=== PATIENT | female | born 1995 | race Caucasian/White ===

== ENCOUNTER 2020-03-14 07:19 | Emergency (ER) | payer OTHER, SELFPAY ==
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
--- NOTE | 2020-03-14 07:35 | XR_ITS ---
EXAMINATION: XR CHEST CLINICAL INFORMATION: Cough. COMPARISON: Report from prior chest radiograph done on 08/03/2006. TECHNIQUE: Frontal upright portable view of the chest was obtained. FINDINGS: No significant abnormality is noted involving the heart, lungs, mediastinum, bony thorax or soft tissues. XR/XR chest 1V IMPRESSION: Unremarkable examination. Specifically, no radiographic evidence of pneumonia.
--- NOTE | 2020-03-14 07:35 | ECG_ITS ---
Test Reason : SOB Blood Pressure : / mmHG Vent. Rate : 092 BPM Atrial Rate : 092 BPM P-R Int : 160 ms QRS Dur : 086 ms QT Int : 382 ms P-R-T Axes : 051 050 027 degrees QTc Int : 472 ms Normal sinus rhythm Normal ECG When compared with ECG of 03-DEC-2015 00:22, No significant change was found Heart rate has decreased Referred By: Diamond Zamarripa Electronically Signed By:BELLE BLACKWOOD MD
[2020-03-14 07:45] VITALS: PULSE 89; RESP 18; TEMP 36.7; O2SAT 100; BMI 31.1
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
--- NOTE | 2020-03-14 08:50 | PC.NURSE ---
PT REFUSED THE MEDICATION AT THIS TIME, STATES SHE IS NOT HAVING ANY PAIN/BURNING FEELING AT THIS TIME
[2020-03-14 08:59] LABS: Glucose Urine UA NEG (NEG); Leukocyte Esterase Urine NEG (NEG); Nitrite Urine NEG (NEG); PH 6.5 (5.0-8.0); Urine Blood 1+ (NEG); Urine Ketones NEG (NEG); Urine Protein NEG (NEG-TRACE)
[2020-03-14 09:09] LABS: Appearance Urine HAZY; Color Urine YELLOW
[2020-03-14 09:15] LABS: Bacteria Urine 1+ /LPF; Mucus Urine 1+ /LPF; Squamous Epithelial Cell Urine 2+ /LPF
[2020-03-14 09:31] LABS: Amphetamine Screen Urine Not Detected (Not Detect); Barbiturates, Urine Not Detected (Not Detect); Benzodiazepines Screen Urine Not Detected (Not Detect); Cannabinoid Screen Urine Not Detected (Not Detect); Cocaine Screen Urine POSITIVE (Not Detect); Opiate Screen Urine Not Detected (Not Detect); Phencyclidine Screen Urine Not Detected (Not Detect)
[2020-03-14 09:41] LABS: UPreg QC Valid YES; Urine Pregnancy NEGATIVE (NEGATIVE)
[2020-03-14 09:43] LABS: MANUAL DIFF FLAG NO
[2020-03-14 09:46] LABS: Basophils Absolute Auto 0.1 X10*3/uL (0.0-0.2); Basophils Percent Auto 0.8 % (0-2); Eosinophils Absolute Auto 0.1 X10*3/uL (0.0-0.4); Eosinophils Percent Auto 1.2 % (0-4); Hematocrit 38.1 % (37-47); Imm Gran Abs Auto 0.02 X10*3/uL (0.00-0.03); Imm Gran Pct Auto 0.2 % (0.0-0.4); Lymphocytes Absolute Auto 2.5 X10*3/uL (1.2-4.9); Mean Corpuscular HGB Conc 34.1 g/dl (31.0-35.0); Mean Corpuscular Volume 87.8 fL (80-98); Mean Platelet Volume 10.1 fL (9.4-12.3); Monocytes Absolute Auto 0.7 X10*3/uL (0.1-1.2); Monocytes Percent Auto 6.9 % (2-11); Neutrophils Absolute Auto 7.3 X10*3/uL (2.0-8.3); Neutrophils Percent Auto 67.9 % (45-73); Platelet Count 276 X10*3/uL (160-400); Red Blood Count 4.34 X10*6/uL (4.20-5.50); Red Cell Distribution Width 14.2 % (11.0-16.0); White Blood Count 10.8 X10*3/uL (4.8-10.8)
[2020-03-14 09:47] VITALS: BP 131/82; PULSE 89; RESP 20; O2SAT 100
--- NOTE | 2020-03-14 09:49 | PC.NURSE ---
PT IS CURRENTLY REFUSING TO ANSWER QUESTIONS ON THE [place] SCALE, STATES I FEEL BETTER NOW I DON'T THINK I NEED TO TALK TO CRISIS AT THIS TIME
--- NOTE | 2020-03-14 10:01 | PC.NURSE ---
FAXED OVER TO N
[2020-03-14 10:12] LABS: Ethanol 99 mg/dL
[2020-03-14 10:15] LABS: Alanine Aminotransferase 23 U/L (0-31); Albumin Level 4.5 g/dL (3.5-5.0); Alkaline Phosphatase 84 U/L (39-117); Anion Gap 12 (12-20); Aspartate Amino Transferase 32 U/L (5-31); Bilirubin Direct 0.2 mg/dL (0.0-0.5); Bilirubin Total 0.3 mg/dL (0.0-1.0); Blood Urea Nitrogen 9 mg/dL (9-16); Calcium 8.7 mg/dL (8.4-10.2); Carbon Dioxide 27 mmol/L (22-29); Chloride 103 mmol/L (96-108); Creatinine Clr Calc Pharmacy 87.3; Estimated Glomerular Filt Rate > 60; Glucose Random 106 mg/dL (60-115); Lipase 12 U/L (8-78); Magnesium 2.3 mg/dL (1.6-2.6); Potassium 3.9 mmol/l (3.3-5.1); Sodium 138 mmol/L (135-145); Total Protein 7.6 g/dL (6.5-8.0)
[2020-03-14 11:38] VITALS: BP 126/81; PULSE 97; RESP 16; O2SAT 100
--- NOTE | 2020-03-14 11:39 | PC.NURSE ---
pt resting in the stretcher awaiting bhn evaluation, pt is calm and cooperative. lunch elaine ordered
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
--- NOTE | 2020-03-14 14:44 | PC.NURSE ---
this rn just got off the phone with bhn, at this time bhn unable to provided that they will be arriving to see the pt pt denies si/hi, she would like to go home, md aware. awaiting d/c paperwork
[2020-03-14 14:49] VITALS: BP 125/85; PULSE 79; RESP 16; TEMP 36.8; O2SAT 98
== END 2020-03-14 14:56 | disposition home or self-care (01) ==
PROVIDERS: Emergency Provider Emergency Medicine
DX: F10.129 Alcohol abuse with intoxication, unspecified (principal); F32.9 Major depressive disorder, single episode, unspecified; R11.2 Nausea with vomiting, unspecified; Y90.4 Blood alcohol level of 80-99 mg/100 ml; F14.10 Cocaine abuse, uncomplicated; F17.200 Nicotine dependence, unspecified, uncomplicated; Z71.6 Tobacco abuse counseling
CPT/HCPCS: 36415; 71045; 80048; 80076; 80307; 80320; 81001; 81003; 81025; 83690; 83735; 85025; 93005; 99284

== ENCOUNTER 2020-08-10 22:09 | Emergency (ER) | payer OTHER, SELFPAY ==
[2020-08-10 22:12] VITALS: PULSE 104; O2SAT 100
[2020-08-10 22:22] VITALS: BP 153/77; PULSE 118; PULSE 122; RESP 18; TEMP 36.7; O2SAT 98; BMI 30.5
--- NOTE | 2020-08-10 23:03 | ED.ALCOHOL ---
HPI - Alcohol General Chief Complaint: ETOH/Substance Use Stated Complaint: ETOH AND LAC Time Seen by Provider: 08/10/20 23:03 History of Present Illness HPI narrative: Patient is a 25-year-old female sent in for evaluation because of possible alcohol ingestion and also a laceration to her right long finger. Patient denies any systemic complaints. Denies any suicidal homicidal ideation. Walking pacing around in the emergency department without any difficulties. Patient does not want stay. Related Data Allergies Allergy/AdvReac Type Severity Reaction Status Date / Time bee pollen [BEE STINGS] Allergy Unknown swelling Verified 08/10/20 22:22 egg [EGG] Allergy Unknown NAUSEA & Verified 08/10/20 22:22 VOMITING ibuprofen [From MOTRIN] Allergy Unknown FACIAL Verified 08/10/20 22:22 SWELLING Review of Systems Review of Systems: Constitutional: No Weight loss, No Fever, No Chills, No Night Sweats, No Fatigue, No Malaise ENT/Mouth: No Hearing loss, No Ear Pain, No Nasal Congestion, No Sinus Pain, No Hoarseness, No sore throat, No Rhinorrhea, No Swallowing Difficulty Eyes: No Eye Pain, No Swelling, No Redness, No Foreign Body, No Discharge, No Vision Changes Cardiovascular: No Chest Pain, No SOB, No Dyspnea on Exertion, No Orthopnea, No Edema, No Palpitations Respiratory: No Cough, No Sputum, No Wheezing, No Smoke Exposure, No Dyspnea Gastrointestinal: No Nausea, No Vomiting, No Diarrhea, No Constipation, No abdominal Pain, No Hematochezia, No Melena Genitourinary: no irregular bleeding, No Dysuria, No Urinary Frequency, No Hematuria, No Urinary Incontinence, No Urgency, No Flank Pain, No Urinary Flow Changes, No Hesitancy Musculoskeletal: No joint pain, No Myalgias, No Joint Swelling Skin: No Skin Lesions, No rash Neuro: No Weakness, No Numbness, No Paresthesias, No Loss of Consciousness, No Dizziness, No Headache Psych: No Anxiety/Panic, No Depression, No SI/HI/AH/VH, No Social Issues, Heme/Lymph: No Bruising, No Bleeding,No Lymphadenopathy Endocrine: No Polyuria, No Polydipsia, No Temperature Intolerance Yes all other systems are reviewed and are negative [facility] Past Medical History Attestation statement: The following information was validated with the patient. Medical History Asthma Depression Substance abuse Social History Social History Alcohol intake: current Alcohol intake frequency: 0-2 drinks per day Alcohol type: hard liquor Smoking Status: Current every day smoker Substance Use Type: Crack/Cocaine Advance Directives: No Advance Directives Information Provided: No Physical Exam Vital Signs: Vital Signs: Last Vital Signs Temp 98.0 F 08/10/20 22:22 Pulse 118 H 08/10/20 22:22 Resp 18 08/10/20 22:22 BP 153/77 H 08/10/20 22:22 Pulse Ox 98 08/10/20 22:22 Body Mass Index 30.5 Appearance: Alert. Oriented X3. No acute distress. Eyes: Pupils equal, round and reactive to light. ENT: Pharynx normal. Neck: Normal inspection. Neck supple. No lymph nodes noted. No crepitus CVS: Normal heart rate and rhythm. Pulses normal. Normal S1 and S2 Respiratory: No respiratory distress. Breath sounds normal. No Wheezing. No rales Abdomen: Soft and nontender. No rigidity. No distention. good BS x4 Skin: Skin warm and dry. Normal skin color. Normal skin turgor. Extremities: No lower extremity edema. Neurovascular intact to all extremities. No Lacerations. No Rash Neuro: Oriented X 3. No motor deficit. No sensory deficit. Moving all extermities. No slurred speech MDM - Alcohol MDM Narrative Medical decision making narrative: Patient refused further care. She is awake alert ambulatory clinically sober. Understood the risk of infection. Patient did not want to stay. She denies any suicidal homicidal ideations. She is walking with normal gait. Patient has left against medical advice. Medical Records Attestation: I reviewed the patient's medical records. Discharge Plan Discharge Clinical Impression: Alcoholic intoxication, Laceration Patient Disposition: Left Against Medical Advice
== END 2020-08-11 00:06 | disposition left against medical advice (07) ==
PROVIDERS: Emergency Provider Emergency Medicine Emergency Medical Services
DX: S61.212A Laceration without foreign body of right middle finger without damage to nail, initial encounter (principal); F10.129 Alcohol abuse with intoxication, unspecified; F33.1 Major depressive disorder, recurrent, moderate; F14.90 Cocaine use, unspecified, uncomplicated; Y90.9 Presence of alcohol in blood, level not specified; X58.XXXA Exposure to other specified factors, initial encounter; Y93.9 Activity, unspecified; Y92.9 Unspecified place or not applicable; Y99.9 Unspecified external cause status; Z79.899 Other long term (current) drug therapy
CPT/HCPCS: 99283

== ENCOUNTER 2020-08-11 11:42 | Emergency (ER) | payer OTHER, SELFPAY ==
--- NOTE | 2020-08-11 12:06 | ED.ALCOHOL ---
HPI - Alcohol General Chief Complaint: ETOH/Substance Use Stated Complaint: etoh Time Seen by Provider: 08/11/20 12:05 Source: patient Mode of arrival: ambulatory Limitations: other (ETOH intoxicated, agitated) History of Present Illness HPI narrative: 25 yo female reports ETOH abuse sent by PD after trying to get into program, wants detox reports she scraped her L ring finger as well unsure tetanus status MD complaint: alcohol intoxication Last drink: Just prior to admission Chronic alcohol use: Yes Previous visits for alcohol intoxication: Yes Recent trauma: Yes Associated symptoms: denies other symptoms Treatments prior to arrival: none Related Data Allergies Allergy/AdvReac Type Severity Reaction Status Date / Time bee pollen [BEE STINGS] Allergy Unknown swelling Verified 08/10/20 22:22 egg [EGG] Allergy Unknown NAUSEA & Verified 08/10/20 22:22 VOMITING ibuprofen [From MOTRIN] Allergy Unknown FACIAL Verified 08/10/20 22:22 SWELLING Review of Systems Review of Systems: Constitutional : No Fever, No Chills ENT/Mouth : No Ear Pain, No Nasal Congestion, No sore throat Eyes: No Eye Pain, No Swelling, No Redness Cardiovascular : No Chest Pain, No SOB Respiratory : No Cough, No Sputum, No Dyspnea Gastrointestinal : No Nausea, No Vomiting, No Diarrhea, No Hematochezia, No Melena Genitourinary : No Dysuria, No Urinary Frequency, No Hematuria Musculoskeletal : No Myalgias Skin : No Skin Lesions, No rash Neuro : No Weakness, No Numbness, No Paresthesias, No Dizziness, No Headache Psych : positive Anxiety, no Depression, no SI/HI Heme/Lymph: No Lymphadenopathy Endocrine : No Polyuria, No Polydipsia All other systems reviewed and are negative [facility] Past Medical History Attestation statement: The following information was validated with the patient. Medical History Asthma Depression Substance abuse Social History Social History Alcohol intake: current Alcohol intake frequency: 0-2 drinks per day Alcohol type: hard liquor Smoking Status: Current every day smoker Substance Use Type: Crack/Cocaine Advance Directives: No Advance Directives Information Provided: No Physical Exam Vital Signs: Vital Signs: Last Vital Signs Temp 98 F 08/11/20 12:10 Pulse 108 H 08/11/20 12:10 Resp 20 08/11/20 12:10 BP 128/68 08/11/20 12:10 Pulse Ox 94 08/11/20 12:10 Body Mass Index 31.8 Appearance: Alert. Oriented X3. No acute distress. slightly agitated + ETOH odor Eyes: Pupils equal, round and reactive to light. ENT: Pharynx normal. Neck: Normal inspection. Neck supple. CVS: Normal heart rate and rhythm. Pulses normal. Respiratory: No respiratory distress. Breath sounds normal. Abdomen: Soft and nontender. Skin: Skin warm and dry. Normal skin color. Normal skin turgor. L ring finger - linear superficial abrasion to tip of finger Extremities: No lower extremity edema. No calf ttp Neuro: Oriented X 3. No motor deficit. No sensory deficit. Psych: + anxiet, denies SI/HI Course Course Course Narrative: Patient placed in physician observation at 317pm. The indication for observation is that the patient needs more time to see if their intoxication improves prior to plan for detox. At this time the patient is well developed well nourished, lungs clear, CV RRR, abd nontender, neuro is intact. currently resting pending recovery coaches input signed out to Dr. Duncan pending workup MDM - Alcohol MDM Narrative Medical decision making narrative: 25 yo female ETOH abuse here requesting detox, applied wound care to L ring finger - labs, COVID swab recovery coaches, tdap, PO ativan for agitation at her request Lab Data Labs: Lab Results 08/11/20 08/11/20 08/11/20 Range/Units 13:43 13:43 13:43 Urine Test NEGATIVE (NEGATIVE) Urine Opiates Screen Not Detected (Not Detect) Ur Barbiturates Screen Not Detected (Not Detect) Ur Phencyclidine Scrn Not Detected (Not Detect) Ur Amphetamines Screen Not Detected (Not Detect) U Benzodiazepines Scrn Not Detected (Not Detect) Urine Cocaine Screen POSITIVE H (Not Detect) U Marijuana (THC) Screen Not Detected (Not Detect) COVID-19 (GINA) Negative (Negative) COVID-19 Clin Com See Note Discharge Plan Discharge Clinical Impression: Abrasion, Cocaine abuse, Alcohol abuse
[2020-08-11 12:10] VITALS: BP 128/68; PULSE 108; RESP 20; TEMP 36.6; O2SAT 94; BMI 31.8
[2020-08-11] MEDS: LORazepam 1 MG TABLET 2 MG PO (12:28)
--- NOTE | 2020-08-11 12:28 | PC.NURSE ---
PT REFUSING TDAP AT THIS TIME, WILL ATTEMPT IN A LITTLE WHILE. PT APPEARS INTOXICATED, BELLIGERENT BUT EASILY CALMED. DETOX COUNSELOR AT BEDSIDE.
--- NOTE | 2020-08-11 13:34 | MHC.RECOVSUP ---
Recovery Support note: Patient is a 25 year old [place]olan speaking female who presented to [facility] ED intoxicated requesting detox. assistant tennis coach met with patient and patient is reporting that she does not want to go to any local facilities and that she has a preference for [facility] in [place]. Patient information has been faxed to [facility] and [facility]. Patient is very intoxicated and would be unable to complete a phone intake at this time. This lead technical writer will follow up with each facility to determine if they will be able to offer patient an ATS bed. Discussed case with patient's RN.
--- NOTE | 2020-08-11 13:41 | PC.NURSE ---
pt refusing lab draw. switched over into hosp attire. urine spec obtained.
[2020-08-11 14:02] LABS: UPreg QC Valid YES; Urine Pregnancy NEGATIVE (NEGATIVE)
[2020-08-11 14:17] LABS: Amphetamine Screen Urine Not Detected (Not Detect); Barbiturates, Urine Not Detected (Not Detect); Benzodiazepines Screen Urine Not Detected (Not Detect); Cannabinoid Screen Urine Not Detected (Not Detect); Cocaine Screen Urine POSITIVE (Not Detect); Opiate Screen Urine Not Detected (Not Detect); Phencyclidine Screen Urine Not Detected (Not Detect)
[2020-08-11 14:30] LABS: COVID-19 Test Negative (Negative)
--- NOTE | 2020-08-11 16:03 | MHC.RECOVSUP ---
Recovery Support note: Patient has been sleeping while awaiting placement. [facility] is reviewing patient information and will need to complete a phone intake with patient prior to placement. Patient refused labs earlier however may be agreeable when she wakes up. [facility] expressed concern that if her potassium is low they would prefer we treat it here prior to sending patient, however stated that not having the labs will not be a barrier to treatment. Operational Test Mechanic Demetrius will continue working with this patient to get her placed for detox.
[2020-08-11 16:23] VITALS: BP 109/56; PULSE 92; RESP 16; TEMP 36.5; O2SAT 99
--- NOTE | 2020-08-11 16:23 | PC.NURSE ---
PT SLEEPING AT THIS TIME, EASILY ROUSED. VS WNL. RESP EVEN AND NONLABOURED. 2 POTENTIAL LOCATIONS FOR DETOX PLACEMENT TODAY. PT CONTINUES TO REFUSE BLOOD DRAW.
--- NOTE | 2020-08-11 18:07 | PC.NURSE ---
patient refuses to allow me to draw their blood.
--- NOTE | 2020-08-11 18:27 | PC.NURSE ---
PT A&OX3, [facility] IN [facility]. AWAITING CALL FROM DETOX FOR INTAKE. CONTINUES TO REFUSE BLOODWORK. OTHERWISE CALM AND COOPERATIVE.
[2020-08-11 19:17] VITALS: BP 96/58; PULSE 91; RESP 16; TEMP 36.4; O2SAT 98
--- NOTE | 2020-08-11 20:01 | MHC.RECOVSUP ---
Patient has a bed available at the [facility] detox. But wont be able to do an intake till tomorrow morning.. I contacted the care team and made them aware of the situation.
--- NOTE | 2020-08-11 20:05 | PC.NURSE ---
[facility] [phone] UNABLE TO DO INTAKE UNTIL TOMORROW AM BUT DOES HAVE BED THERE
== END 2020-08-11 22:00 | disposition home or self-care (01) ==
PROVIDERS: Emergency Provider Emergency Medicine
DX: S60.415A Abrasion of left ring finger, initial encounter (principal); F10.129 Alcohol abuse with intoxication, unspecified; F17.200 Nicotine dependence, unspecified, uncomplicated; F14.90 Cocaine use, unspecified, uncomplicated; Y90.9 Presence of alcohol in blood, level not specified; W01.0XXA Fall on same level from slipping, tripping and stumbling without subsequent striking against object, initial encounter; Y93.9 Activity, unspecified; Y92.9 Unspecified place or not applicable; Y99.9 Unspecified external cause status; Z20.822 Contact with and (suspected) exposure to COVID-19; Z79.899 Other long term (current) drug therapy; Z71.6 Tobacco abuse counseling
CPT/HCPCS: 36415; 80307; 81025; 87635; 90471; 99284

== ENCOUNTER 2020-12-23 07:05 | Emergency (ER) | payer OTHER, SELFPAY ==
--- NOTE | 2020-12-23 07:42 | ED.ALCOHOL ---
HPI - Alcohol General Chief Complaint: ETOH/Substance Use Stated Complaint: detox Time Seen by Provider: 12/23/20 07:14 Source: patient and old records reviewed Mode of arrival: ambulatory Limitations: no limitations History of Present Illness MD complaint: desires rehab Last drink: Hours (ago) Chronic alcohol use: Yes Previous visits for alcohol intoxication: Yes Recent trauma: No Associated symptoms: denies other symptoms Treatments prior to arrival: none Related Data Allergies Allergy/AdvReac Type Severity Reaction Status Date / Time bee pollen [BEE STINGS] Allergy Unknown swelling Verified 08/10/20 22:22 egg [EGG] Allergy Unknown NAUSEA & Verified 08/10/20 22:22 VOMITING ibuprofen [From MOTRIN] Allergy Unknown FACIAL Verified 08/10/20 22:22 SWELLING Review of Systems Review of Systems: Constitutional : No Fever, No Chills ENT/Mouth : No Ear Pain, No Nasal Congestion, No sore throat Eyes: No Eye Pain, No Swelling, No Redness Cardiovascular : No Chest Pain, No SOB Respiratory : No Cough, No Sputum, No Dyspnea Gastrointestinal : No Nausea, No Vomiting, No Diarrhea, No Hematochezia, No Melena Genitourinary : No Dysuria, No Urinary Frequency, No Hematuria Musculoskeletal : No Myalgias Skin : No Skin Lesions, No rash Neuro : No Weakness, No Numbness, No Paresthesias, No Dizziness, No Headache Psych : positive Anxiety, positive Depression, no SI/HI Heme/Lymph: No Lymphadenopathy Endocrine : No Polyuria, No Polydipsia All other systems reviewed and are negative [facility] Past Medical History Attestation statement: The following information was validated with the patient. Medical History Asthma Depression Substance abuse Social History Social History Alcohol intake: current Alcohol intake frequency: 0-2 drinks per day Alcohol type: hard liquor Use of substances other than those prescribed or required for medical reasons: Yes Substance Use Type: Crack/Cocaine Advance Directives: No Advance Directives Information Provided: No Physical Exam Vital Signs: Vital Signs: Last Vital Signs Temp 98.0 F 12/23/20 07:44 Pulse 94 12/23/20 07:44 Resp 18 12/23/20 07:44 BP 143/71 H 12/23/20 07:44 Pulse Ox 98 08/18/21 07:44 Body Mass Index 0.3 Appearance: Alert. Oriented X3. No acute distress. Eyes: Pupils equal, round and reactive to light. ENT: Pharynx normal. Neck: Normal inspection. Neck supple. CVS: Normal heart rate and rhythm. Pulses normal. Respiratory: No respiratory distress. Breath sounds normal. Abdomen: Soft and nontender. Skin: Skin warm and dry. Normal skin color. Normal skin turgor. Extremities: No lower extremity edema. No calf ttp Neuro: Oriented X 3. No motor deficit. No sensory deficit. Course Course Course Narrative: eloped from ED MDM - Alcohol MDM Narrative Medical decision making narrative: 25 yo female comes in with c/o ETOH and cocaine abuse has nowhere to go just left detox early, wants to go back. Will obtain urine studies and discuss with recovery coaches. No medical issues, no SI. Lab Data Labs: Lab Results 12/23/20 12/23/20 12/23/20 Range/Units 08:00 08:06 08:06 Urine Test NEGATIVE (NEGATIVE) Urine Opiates Screen Not Detected (Not Detect) Ur Barbiturates Screen Not Detected (Not Detect) Ur Phencyclidine Scrn Not Detected (Not Detect) Ur Amphetamines Screen Not Detected (Not Detect) U Benzodiazepines Scrn Not Detected (Not Detect) Urine Cocaine Screen POSITIVE H (Not Detect) U Marijuana (THC) Screen Not Detected (Not Detect) Ethyl Alcohol < 10 mg/dL Discharge Plan Discharge Clinical Impression: Substance abuse Patient Disposition: Elopement Instructions: Polysubstance Abuse (ED) Additional Instructions: return to ED for any worsening symptoms or concerns Discharge Date/Time: 12/23/20 11:22
[2020-12-23 07:44] VITALS: BP 143/71; PULSE 94; RESP 18; TEMP 36.7; O2SAT 98
[2020-12-23 08:20] LABS: UPreg QC Valid YES; Urine Pregnancy NEGATIVE (NEGATIVE)
--- NOTE | 2020-12-23 08:35 | MHC.RECOVRN ---
25 year old female presented to [facility], ambulatory, seeking ATS. T/w met with pt in 18H to discuss substance use. Pt reports alcohol, varying amounts beers, shots, whatever as well as crack cocaine use. Pt denies other substances. Pt recently at [facility], last week, left as a self directed discharge. Pt regrets this decision and would like to return to ATS wherever a bed is available. Pts labs pending. When resulted, t/w will conduct bedsearch and send referrals.
[2020-12-23 08:44] LABS: Ethanol < 10 mg/dL
--- NOTE | 2020-12-23 11:00 | MHC.RECOVRN ---
Pt eloped prior to referrals being sent.
[2020-12-23 19:52] LABS: Amphetamine Screen Urine Not Detected (Not Detect); Barbiturates, Urine Not Detected (Not Detect); Benzodiazepines Screen Urine Not Detected (Not Detect); Cannabinoid Screen Urine Not Detected (Not Detect); Cocaine Screen Urine POSITIVE (Not Detect); Fentanyl, urine POSITIVE (Not Detect); Opiate Screen Urine Not Detected (Not Detect); Phencyclidine Screen Urine Not Detected (Not Detect)
== END 2020-12-23 11:22 | disposition left against medical advice (07) ==
PROVIDERS: Emergency Provider Emergency Medicine; PCP Nurse Practitioner Family
DX: F14.10 Cocaine abuse, uncomplicated (principal); Z71.51 Drug abuse counseling and surveillance of drug abuser; Z79.899 Other long term (current) drug therapy
CPT/HCPCS: 36415; 80307; 81025; 82077; 99283; 99284

== ENCOUNTER 2021-01-03 09:56 | Inpatient (IN) | payer OTHER, SELFPAY ==
[2021-01-03 10:18] VITALS: BP 148/91; PULSE 95; RESP 18; TEMP 37.1; O2SAT 97; BMI 32.2
--- NOTE | 2021-01-03 10:49 | PC.NURSE ---
patient restless, moving from room to room audibly self dialoguing
[2021-01-03] MEDS: LORazepam 1 MG TABLET 2 MG PO (10:56)
--- NOTE | 2021-01-03 10:58 | ED.PSYCH ---
HPI - Psych General Chief Complaint: Psychiatric Symptoms Stated Complaint: crisis Time Seen by Provider: 01/03/21 10:50 Source: patient Mode of arrival: ambulatory Limitations: no limitations History of Present Illness HPI Narrative: 25-year-old female with a past medical history of substance abuse here with complaints of suicidal thoughts. Patient tells me she bought some heroin off the street and took 2 bags and temp to kill herself. However this was unsuccessful. She reports continued suicidal thoughts. She also reports homicidal thoughts to everybody out there who doesn't respect me. Drinking alcohol every day. Occasionally uses heroin. Smokes crack daily. No physical complaints Related Data Home Medications Medication Instructions Recorded Confirmed albuterol sulfate 90 mcg/actuation 1 puff PO QID PRN 01/03/21 01/03/21 aerosol inhaler (ProAir HFA) Allergies Allergy/AdvReac Type Severity Reaction Status Date / Time bee pollen [BEE STINGS] Allergy Unknown swelling Verified 08/10/20 22:22 egg [EGG] Allergy Unknown NAUSEA & Verified 08/10/20 22:22 VOMITING ibuprofen [From MOTRIN] Allergy Unknown FACIAL Verified 08/10/20 22:22 SWELLING Review of Systems Review of Systems: Yes all other systems are reviewed and are negative Constitutional: Constitutional: Reports no additional constitutional complaints, Denies body ache(s), Denies chills, Denies fever(s), Denies headache(s) and Denies weakness Eyes: Eyes: Reports no additional eye complaints and Denies change in vision ENT: Reports system reviewed and no additional complaints, except as documented, Denies dizziness, Denies headache(s), Denies nasal congestion, Denies nasal discharge and Denies neck pain Cardiovascular: Cardiovascular: Reports no additional cardiovascular complaints, Denies chest pain, Denies leg edema and Denies dyspnea Respiratory: Respiratory: Reports no additional respiratory complaints, Denies cough and Denies dyspnea Gastrointestinal: Gastrointestinal: Reports no additional gastrointestinal complaints, Denies abdominal pain, Denies diarrhea, Denies nausea and Denies vomiting Genitourinary: Genitourinary: Reports no additional female genitourinary complaints and Denies urinary incontinence Musculoskeletal: Musculoskeletal: Reports no additional musculoskeletal complaints, Denies back pain, Denies arthralgias, Denies joint swelling, Denies neck pain, Denies numbness and Denies tingling Integumentary/Breasts: Skin/Breast: Reports system reviewed and no additional complaints, except as docu and Denies rash Neurologic: Reports system reviewed and no additional complaints, except as documented, Denies Abnormal speech present, Denies dizziness, Denies headache(s), Denies numbness, Denies tingling and Denies weakness Psychiatric: Psychiatric: Reports anxiety, Reports depression, Denies hallucinations, Denies tactile hallucinations, Reports homicidal ideation and Reports suicidal ideation [facility] Past Medical History Attestation statement: The following information was validated with the patient. Source: old records reviewed and nursing notes reviewed Medical History Asthma Depression Substance abuse Social History Social History Alcohol intake: current Alcohol intake frequency: 0-2 drinks per day Alcohol type: hard liquor Substance Use Type: Crack/Cocaine Advance Directives: Yes Advance Directives Information Provided: Yes Advance Directives on File: No Patient : No Physical Exam Vital Signs: Vital Signs: Last Vital Signs Temp 98.8 F 01/03/21 10:18 Pulse 95 01/03/21 10:18 Resp 18 01/03/21 10:18 BP 148/91 H 01/03/21 10:18 Pulse Ox 97 01/03/21 10:18 Body Mass Index 32.2 Const: General: cooperative, healthy appearing, comfortable and no acute distress Orientation/consciousness: patient oriented x3 Limitations: no limitations HENMT: Head: Yes normal to inspection Ears: hearing grossly normal bilaterally General nose exam: Normal external nose present Face and sinus: Yes normal facial exam Mouth: Normal oral and palatal mucosa present Throat: Yes posterior oropharynx normal Eyes: General: appearance normal, both eyes and all related structures Pupils: Equal, round and reactive pupils present Neck: Neck: Yes normal visual inspection Chest: Chest palpation & inspection: normal inspection of the chest Resp: Effort & Inspection: normal respiratory effort Auscultation: clear to auscultation bilaterally Cardio: Rate: regular rate Rhythm: regular rhythm Peripheral pulses: Peripheral pulses 2+ throughout GI: Inspection: Yes normal to inspection Palpation (GI): Soft to palpation and nontender Auscultation: normal bowel sounds Back/Spine/Pelvis: Thoracic/Lumbar Spine: thoracic and lumbar spine normal to inspection Skin: General skin exam: no rashes or lesions noted Neuro: General: patient oriented x3, no focal motor deficits and normal sensation to monofilament Cranial nerves: Yes CN's II-XII intact bilaterally, Yes Equal, round and reactive pupils present, Yes Bilaterally intact EOM present and Yes Nystagmus not present Cognition (Neuro): normal cognition Speech: No Abnormal speech present Gait exam (Neuro): Normal gait present Motor exam (neuro): 5/5 motor strength present throughout Extrem: General: Yes normal to inspection Psych: Other: Ill kept Rambling, pressured speech Intermittent outburst Course Course Course Narrative: 25-year-old female here with complaints of suicidal and homicidal thoughts, daily alcohol and drug use. No physical complaints. Reports attempted OD on heroin several days ago. Will check labs, drug screen, COVID screen. Will require crisis evaluation once medically cleared. On my initial assessment the patient is very pressured speech, manic, rambling, intermittent outburst, difficult to redirect. Did require p.o. Ativan 1330-Seen by crisis. Plan for inpatient bed search. At this time is voluntary however they are noting if patient wants to leave it would not be recommended and at that time she should have a section 12. 1545-placed in physician observation pending disposition 1800-sign out to night team pending above. MDM - Psych Medical Records Attestation: I reviewed the patient's medical records. Lab Data Attestation: I reviewed the patient's lab results. Result diagrams: 01/03/21 13:17 01/03/21 13:17 Labs: Lab Results 01/03/21 01/03/21 01/03/21 Range/Units 13:16 13:16 13:17 WBC 11.1 H (4.8-10.8) X10*3/uL RBC 4.19 L (4.20-5.50) X10*6/uL Hgb 12.5 (12.0-16.0) g/dl Hct 37.5 (37-47) % MCV 89.5 (80-98) fL MCH 29.8 (27.0-33.0) pg MCHC 33.3 (31.0-35.0) g/dl RDW 15.2 (11.0-16.0) % Plt Count 331 (160-400) X10*3/uL MPV 10.0 (9.4-12.3) fL Immature Gran % (Auto) 0.4 (0.0-0.4) % Neut % (Auto) 68.8 (45-73) % Lymph % (Auto) 20.5 (20-40) % [place] % (Auto) 7.7 (2-11) % Eos % (Auto) 2.1 (0-4) % Baso % (Auto) 0.5 (0-2) % Lymph # (Auto) 2.3 (1.2-4.9) X10*3/uL [place] # (Auto) 0.9 (0.1-1.2) X10*3/uL Eos # (Auto) 0.2 (0.0-0.4) X10*3/uL Baso # (Auto) 0.1 (0.0-0.2) X10*3/uL Abs Immat Gran (auto) 0.04 H (0.00-0.03) X10*3/uL Absolute Neuts (auto) 7.6 (2.0-8.3) X10*3/uL Absolute Nucleated RBC 0.000 (0.0-0.012) X10*3/uL Nucleated RBC % (auto) 0.0 (0.0-0.2) /100WBC Sodium (135-145) mmol/L Potassium (3.3-5.1) mmol/L Chloride (96-108) mmol/L Carbon Dioxide (22-29) mmol/L Anion Gap (12-20) BUN (9-16) mg/dL Creatinine (0.5-1.4) mg/dL Estim Creat Clear Calc Estimated GFR Random Glucose (60-115) mg/dL Calcium (8.4-10.2) mg/dL Total Bilirubin (0.0-1.0) mg/dL Direct Bilirubin (0.0-0.5) mg/dL AST (5-31) U/L ALT (0-31) U/L Alkaline Phosphatase (39-117) U/L Total Protein (6.5-8.0) g/dL Albumin (3.5-5.0) g/dL Ethyl Alcohol 44 mg/dL COVID-19 (GINA) Negative (Negative) COVID-19 Clin Com See Note 01/03/21 Range/Units 13:17 WBC (4.8-10.8) X10*3/uL RBC (4.20-5.50) X10*6/uL Hgb (12.0-16.0) g/dl Hct (37-47) % MCV (80-98) fL MCH (27.0-33.0) pg MCHC (31.0-35.0) g/dl RDW (11.0-16.0) % Plt Count (160-400) X10*3/uL MPV (9.4-12.3) fL Immature Gran % (Auto) (0.0-0.4) % Neut % (Auto) (45-73) % Lymph % (Auto) (20-40) % [place] % (Auto) (2-11) % Eos % (Auto) (0-4) % Baso % (Auto) (0-2) % Lymph # (Auto) (1.2-4.9) X10*3/uL [place] # (Auto) (0.1-1.2) X10*3/uL Eos # (Auto) (0.0-0.4) X10*3/uL Baso # (Auto) (0.0-0.2) X10*3/uL Abs Immat Gran (auto) (0.00-0.03) X10*3/uL Absolute Neuts (auto) (2.0-8.3) X10*3/uL Absolute Nucleated RBC (0.0-0.012) X10*3/uL Nucleated RBC % (auto) (0.0-0.2) /100WBC Sodium 140 (135-145) mmol/L Potassium 4.0 (3.3-5.1) mmol/L Chloride 106 (96-108) mmol/L Carbon Dioxide 24 (22-29) mmol/L Anion Gap 14 (12-20) BUN 8 L (9-16) mg/dL Creatinine 0.92 (0.5-1.4) mg/dL Estim Creat Clear Calc 89.9 Estimated GFR > 60 Random Glucose 98 (60-115) mg/dL Calcium 9.6 D (8.4-10.2) mg/dL Total Bilirubin 0.4 (0.0-1.0) mg/dL Direct Bilirubin 0.2 (0.0-0.5) mg/dL AST 28 (5-31) U/L ALT 31 (0-31) U/L Alkaline Phosphatase 99 (39-117) U/L Total Protein 7.7 (6.5-8.0) g/dL Albumin 4.5 (3.5-5.0) g/dL Ethyl Alcohol mg/dL COVID-19 (GINA) (Negative) COVID-19 Clin Com Discharge Plan Discharge Clinical Impression: Suicidal ideation Patient Disposition: Admitted As Inpatient Prescriptions: No Action albuterol sulfate [ProAir HFA] 90 mcg/actuation HFA aerosol inhaler 1 puff PO QID PRN (Reason: wheezing) RF: 0
--- NOTE | 2021-01-03 11:15 | PC.NURSE ---
continues to be restless walking around unit frequently cursing, punching own hand in air, lounging in group area and put feet on table, redirected and was compliant.
--- NOTE | 2021-01-03 12:17 | PC.NURSE ---
REYES arrives to interview patient
[2021-01-03] MEDS: QUEtiapine Fumarate 50 MG TABLET PO (13:20)
[2021-01-03 13:25] LABS: MANUAL DIFF FLAG NO
[2021-01-03 13:26] LABS: Basophils Absolute Auto 0.1 X10*3/uL (0.0-0.2); Basophils Percent Auto 0.5 % (0-2); Eosinophils Absolute Auto 0.2 X10*3/uL (0.0-0.4); Eosinophils Percent Auto 2.1 % (0-4); Hematocrit 37.5 % (37-47); Hemoglobin 12.5 g/dl (12.0-16.0); Imm Gran Abs Auto 0.04 X10*3/uL (0.00-0.03); Imm Gran Pct Auto 0.4 % (0.0-0.4); Lymphocytes Absolute Auto 2.3 X10*3/uL (1.2-4.9); Lymphocytes Percent Auto 20.5 % (20-40); Mean Corpuscular HGB Conc 33.3 g/dl (31.0-35.0); Mean Corpuscular Hemoglobin 29.8 pg (27.0-33.0); Mean Corpuscular Volume 89.5 fL (80-98); Monocytes Absolute Auto 0.9 X10*3/uL (0.1-1.2); Monocytes Percent Auto 7.7 % (2-11); Neutrophils Absolute Auto 7.6 X10*3/uL (2.0-8.3); Neutrophils Percent Auto 68.8 % (45-73); Platelet Count 331 X10*3/uL (160-400); Red Blood Count 4.19 X10*6/uL (4.20-5.50); Red Cell Distribution Width 15.2 % (11.0-16.0); White Blood Count 11.1 X10*3/uL (4.8-10.8)
[2021-01-03 13:43] LABS: COVID-19 Test Negative (Negative)
[2021-01-03 13:45] LABS: Ethanol 44 mg/dL
[2021-01-03 13:47] LABS: Alanine Aminotransferase 31 U/L (0-31); Albumin Level 4.5 g/dL (3.5-5.0); Alkaline Phosphatase 99 U/L (39-117); Anion Gap 14 (12-20); Aspartate Amino Transferase 28 U/L (5-31); Bilirubin Direct 0.2 mg/dL (0.0-0.5); Bilirubin Total 0.4 mg/dL (0.0-1.0); Blood Urea Nitrogen 8 mg/dL (9-16); Calcium 9.6 mg/dL (8.4-10.2); Carbon Dioxide 24 mmol/L (22-29); Chloride 106 mmol/L (96-108); Creatinine Clr Calc Pharmacy 89.9; Estimated Glomerular Filt Rate > 60; Glucose Random 98 mg/dL (60-115); Sodium 140 mmol/L (135-145); Total Protein 7.7 g/dL (6.5-8.0)
--- NOTE | 2021-01-03 14:03 | PC.NURSE ---
patient appears to be napping at this time
--- NOTE | 2021-01-04 | ECG_ITS ---
Test Reason : MED CLEARANCE Blood Pressure : / mmHG Vent. Rate : 067 BPM Atrial Rate : 067 BPM P-R Int : 132 ms QRS Dur : 088 ms QT Int : 400 ms P-R-T Axes : 017 066 036 degrees QTc Int : 422 ms Normal sinus rhythm Normal ECG When compared with ECG of 14-MAR-2020 08:19, No significant change was found Referred By: Ashleigh Giles Electronically Signed By:SINGH AGUILAR
[2021-01-04 00:20] LABS: Lithium < 0.10 mmol/L (0.60-1.20)
[2021-01-04 01:53] VITALS: BP 126/86; PULSE 83; RESP 18; TEMP 36.6; O2SAT 99
--- NOTE | 2021-01-04 05:46 | PC.NURSE ---
Patient slept through the night, no distress observed/reported, briefly up for snacks and refreshment, compliant with VS assessment, patient was unable to provide urine sample at this time, behavior appropriate, asymptomatic of withdrawal, patient disposition is inpatient bed search, will continue to monitor.
--- NOTE | 2021-01-04 06:53 | PC.NURSE ---
patient appears to remain asleep at present appears in no distress, respirations are even and unlabored
--- NOTE | 2021-01-04 10:49 | PC.NURSE ---
patient presents as irritable and rude to staff, god's got kuldip raises voice to staff after asking for juice I want WATER I'm not crazy
[2021-01-04 10:50] VITALS: BP 145/94; PULSE 86; RESP 14; O2SAT 98
--- NOTE | 2021-01-04 10:50 | PC.NURSE ---
ripped snaps off her liz
[2021-01-04 11:45] LABS: Amphetamine Screen Urine Not Detected (Not Detect); Barbiturates, Urine Not Detected (Not Detect); Benzodiazepines Screen Urine Not Detected (Not Detect); Cannabinoid Screen Urine Not Detected (Not Detect); Cocaine Screen Urine POSITIVE (Not Detect); Fentanyl, urine Not Detected (Not Detect); Opiate Screen Urine Not Detected (Not Detect); Phencyclidine Screen Urine Not Detected (Not Detect)
[2021-01-04] MEDS: QUEtiapine Fumarate 50 MG TABLET PO (14:41)
[2021-01-04 16:22] VITALS: RESP 16
--- NOTE | 2021-01-04 16:26 | PC.NURSE ---
Report given to GIL Chappell on M5. Once orders are entered into system by , patient will be escorted/admitted to M[facility]. Room 508-2.
[2021-01-04] MEDS: LORazepam 1 MG TABLET 2 MG PO (17:55)
[2021-01-04] MEDS: Thiamine HCL 100 MG TABLET PO (17:55)
[2021-01-04] MEDS: Gabapentin 300 MG CAPSULE PO ×2 (17:55→21:13)
[2021-01-04] MEDS: Folic Acid 1 MG TABLET PO (17:56)
[2021-01-04 18:00] VITALS: BP 138/76; PULSE 75; RESP 18; TEMP 35.9; O2SAT 100
--- NOTE | 2021-01-04 19:56 | PC.ADMIT ---
PT. IS A 25 YEAR OLD HAITIAN SPEAKING FEMALE WHO PRESENTS TO M 5 FROM THE [facility] AT APPROX 17:40 ON A SECTION 12 STATUS. PT. IS COVID NEG., UTOX POS. FOR COCAINE. PT. IS KNOWN TO THE UNIT. PT. PRESENTED TO THE [facility] YESTERDAY AM SECONDARY TO EXPERIENCING HI WITH NO PLAN. PT. PRESENTED PARANOID AND HAD PRESSURED SPEECH, TANGENTIAL THOUGHT PROCESS AND POOR CONCENTRATION. PT. DESCRIBED HER SLEEP TO BE POOR AND REPORTED SHE HAS NOT SLEPT IN PAST MONTH . JUDGMENT, INSIGHT, AND IMPULSE CONTROL APPEAR TO BE POOR/IMPAIRED. DURING ADMISSION PROCESS PT. RIPPED THE CONSENT FORMS FOR HER SISTER, FATHER AND PCP INTO PIECES. WHEN SHE WAS ASK TO SIGN THE CONSENT FOR HER INSURANCE SHE STATED I GO TO RESIDENTIAL, I DON'T CARE . PT. DID SIGN THE CONSENT FOR HER INSURANCE, THE ONLY CONSENT SHE SIGNED. PT. REPORTED NOT TO HAVE A PHARMACY. PT. HAD STAT ORDERS FOR MEDICATIONS, DURING MED. ADMINISTRATION SHE STATED I TAKE ALL THE MEDS YOU GIVE ME . BEFORE MEDICATION WAS GIVEN PT. WAS ERRATIC, AGITATED AND LABILE. SHE LAUGHED ONE MOMENT, THE OTHER HER AFFECT GOT TENSE, INTENSE EYE CONTACT WITH A BIZARRE STARE.. 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 PT. DENIED AT PRESENT TIME SI, HI, AVH, SHE WAS ANXIOUS, SHE DENIED CURRENT WITHDRAWAL SYMPTOMS. MEDICATION ORDERS WERE RECEIVED BY DR. LINDA DALLAS. PT. IS ON 15 MIN. SAFETY CHECKS, SHE IS A CURRENT SMOKER, NICOTINE REPLACEMENT WAS ORDERED. PT. REPORTED TO FEEL SAFE ON UNIT, SHE SIGNED TO SAFETY TOOL, MASTER TREATMENT PLAN IS AWAITING TO BE SIGNED.
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
[2021-01-04] MEDS: Docusate Sodium 100 MG CAPSULE PO (21:13)
[2021-01-04] MEDS: LORazepam 1 MG TABLET PO (21:13)
[2021-01-04] MEDS: Sennosides 8.6 MG TABLET PO (21:13)
[2021-01-05 06:00] VITALS: BP 127/64; PULSE 65; RESP 16; TEMP 36.6; O2SAT 95
[2021-01-05] MEDS: Gabapentin 300 MG CAPSULE PO ×3 (09:07→20:58)
[2021-01-05] MEDS: Docusate Sodium 100 MG CAPSULE PO ×2 (09:07→20:58)
[2021-01-05] MEDS: LORazepam 1 MG TABLET PO ×4 (09:07→20:58)
[2021-01-05] MEDS: Folic Acid 1 MG TABLET PO (09:07)
[2021-01-05] MEDS: Thiamine HCL 100 MG TABLET PO (09:07)
--- NOTE | 2021-01-05 09:41 | P.HPPS_ITS ---
HPI Chief Complaint: Depression [facility] Medical History Asthma Depression Substance abuse Diagnostics Vital Signs (24Hr): Vital Signs - 24 hr 01/04/21 10:50 01/04/21 16:22 01/04/21 18:00 Temperature 96.7 F L Pulse Rate 86 75 Respiratory Rate 14 16 18 Blood Pressure 145/94 H 138/76 Pulse Oximetry 98 100 01/05/21 06:00 Temperature 97.8 F Pulse Rate 65 Respiratory Rate 16 Blood Pressure 127/64 Pulse Oximetry 95 Body Mass Index 32.2 Labs Results: 01/03/21 13:17 01/03/21 13:17 Labs: Laboratory Results - last 48 hr 01/03/21 01/03/21 01/03/21 13:16 13:16 13:16 WBC RBC Hgb Hct MCV MCH MCHC RDW Plt Count MPV Immature Gran % (Auto) Neut % (Auto) Lymph % (Auto) Meagher % (Auto) Eos % (Auto) Baso % (Auto) Lymph # (Auto) Meagher # (Auto) Eos # (Auto) Baso # (Auto) Abs Immat Gran (auto) Absolute Neuts (auto) Absolute Nucleated RBC Nucleated RBC % (auto) Sodium Potassium Chloride Carbon Dioxide Anion Gap BUN Creatinine Estim Creat Clear Calc Estimated GFR Random Glucose Calcium Total Bilirubin Direct Bilirubin AST ALT Alkaline Phosphatase Total Protein Albumin Urine Opiates Screen Urine Fentanyl Screen Ur Barbiturates Screen Ur Phencyclidine Scrn Ur Amphetamines Screen U Benzodiazepines Scrn [place] < 0.10 L Urine Cocaine Screen U Marijuana (THC) Screen Ethyl Alcohol 44 COVID-19 (GINA) Negative COVID-19 Clin Com See Note 01/03/21 01/03/21 01/04/21 13:17 13:17 11:16 WBC 11.1 H RBC 4.19 L Hgb 12.5 Hct 37.5 MCV 89.5 MCH 29.8 MCHC 33.3 RDW 15.2 Plt Count 331 MPV 10.0 Immature Gran % (Auto) 0.4 Neut % (Auto) 68.8 Lymph % (Auto) 20.5 Meagher % (Auto) 7.7 Eos % (Auto) 2.1 Baso % (Auto) 0.5 Lymph # (Auto) 2.3 Meagher # (Auto) 0.9 Eos # (Auto) 0.2 Baso # (Auto) 0.1 Abs Immat Gran (auto) 0.04 H Absolute Neuts (auto) 7.6 Absolute Nucleated RBC 0.000 Nucleated RBC % (auto) 0.0 Sodium 140 Potassium 4.0 Chloride 106 Carbon Dioxide 24 Anion Gap 14 BUN 8 L Creatinine 0.92 Estim Creat Clear Calc 89.9 Estimated GFR > 60 Random Glucose 98 Calcium 9.6 D Total Bilirubin 0.4 Direct Bilirubin 0.2 AST 28 ALT 31 Alkaline Phosphatase 99 Total Protein 7.7 Albumin 4.5 Urine Opiates Screen Not Detected Urine Fentanyl Screen Not Detected Ur Barbiturates Screen Not Detected Ur Phencyclidine Scrn Not Detected Ur Amphetamines Screen Not Detected U Benzodiazepines Scrn Not Detected [place] Urine Cocaine Screen POSITIVE H U Marijuana (THC) Screen Not Detected Ethyl Alcohol COVID-19 (GINA) COVID-19 Clin Com Meds/Allergies Meds Home Medications Acetaminophen (Acetaminophen 325 Mg Tablet) 650 mg PO Q6H PRN PRN Reason: Headache/Pain Mild Scale (1-3) Al Hydroxide/Mg Hydroxide (Magnesium Hydrox/Alum Hydrox 30 Ml Oral.Susp) 30 ml PO Q6H PRN PRN Reason: Heartburn/Nausea Albuterol Sulfate (Albuterol Sulfate 90 Mcg 8 Gm Inhaler) 1 puff INHALE QID PRN PRN Reason: wheezing Diphenhydramine HCl (Diphenhydramine Hcl 25 Mg Tablet) 50 mg PO Q4H PRN PRN Reason: agitation Docusate Sodium (Docusate Sodium 100 Mg Capsule) 100 mg PO BID [facility] Last Admin: 01/05/21 09:07 Dose: 100 mg Documented by: Folic Acid (Folic Acid 1 Mg Tablet) 1 mg PO DAILY [facility] Stop: 01/07/21 17:29 Last Admin: 01/05/21 09:07 Dose: 1 mg Documented by: Gabapentin (Gabapentin 300 Mg Capsule) 300 mg PO TID [facility] Stop: 01/06/21 23:59 Last Admin: 01/05/21 09:07 Dose: 300 mg Documented by: Gabapentin (Gabapentin 300 Mg Capsule) 300 mg PO BID [facility] Stop: 01/08/21 23:59 Gabapentin (Gabapentin 300 Mg Capsule) 300 mg PO DAILY [facility] Stop: 01/10/21 23:59 Haloperidol (Haloperidol 5 Mg Tablet) 5 mg PO Q4H PRN PRN Reason: agitation Lorazepam (Lorazepam 1 Mg Tablet) 2 mg PO Q4H PRN PRN Reason: agitation Lorazepam (Lorazepam 1 Mg Tablet) 1 mg PO TID [facility] Stop: 01/06/21 23:59 Last Admin: 01/05/21 09:07 Dose: 1 mg Documented by: Lorazepam (Lorazepam 1 Mg Tablet) 1 mg PO BID [facility] Stop: 01/07/21 23:59 Lorazepam (Lorazepam 0.5 Mg Tablet) 1 mg PO DAILY [facility] Stop: 01/09/21 23:59 Nicotine (Nicotine 21 Mg Patch.Td24) 21 mg TRANSDERMA DAILY PRN PRN Reason: Nicotine Cravings Nicotine Polacrilex (Nicotine Polacrilex 2 Mg Gum) 4 mg BUCCAL Q2H PRN PRN Reason: Nicotine Cravings Quetiapine Fumarate (Quetiapine Fumarate 50 Mg Tablet) 50 mg PO TID PRN PRN Reason: anxiety/restlessness Last Admin: 01/04/21 14:41 Dose: 50 mg Documented by: Senna (Sennosides 8.6 Mg Tablet) 8.6 mg PO BEDTIME [facility] Last Admin: 01/04/21 21:13 Dose: 8.6 mg Documented by: Thiamine HCl (Thiamine Hcl 100 Mg Tablet) 100 mg PO DAILY [facility] Stop: 01/07/21 17:29 Last Admin: 01/05/21 09:07 Dose: 100 mg Documented by: Allergies Allergies Allergy/AdvReac Type Severity Reaction Status Date / Time bee pollen [BEE STINGS] Allergy Unknown swelling Verified 08/10/20 22:22 egg [EGG] Allergy Unknown NAUSEA & Verified 08/10/20 22:22 VOMITING ibuprofen [From MOTRIN] Allergy Unknown FACIAL Verified 08/10/20 22:22 SWELLING
[2021-01-05] MEDS: Divalproex Sodium ER 250 MG TAB.ER.24H PO (12:00)
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
[2021-01-05 18:00] VITALS: BP 134/80; PULSE 80; TEMP 36.7
[2021-01-05] MEDS: Sennosides 8.6 MG TABLET PO (20:58)
[2021-01-05] MEDS: Divalproex Sodium ER 500 MG TAB.ER.24H PO (20:58)
[2021-01-06] MEDS: Thiamine HCL 100 MG TABLET PO (09:15)
[2021-01-06] MEDS: Gabapentin 300 MG CAPSULE PO (09:16)
[2021-01-06] MEDS: Divalproex Sodium 250 MG TABLET.DR PO (09:16)
[2021-01-06] MEDS: LORazepam 1 MG TABLET PO (09:17)
--- NOTE | 2021-01-06 11:02 | PC.NURSE ---
PT SIGNED A 3DAY NOTICE ON 01/06 THAT IS UP ON 01/12
--- NOTE | 2021-01-06 12:01 | HO.PSYCHPN ---
Subjective Subjective Date of Service: 01/06/21 Reason For Visit: Depression SI Subjective Notes: 3 Day Interim History: pt reports she is feeling much better today. She says her mood is good and she thinks the Depakote is working since she is just focused on herself and not worried about Diagnostics Vital Signs (24Hr): Vital Signs - 24 hr 01/05/21 18:00 Temperature 98.0 F Pulse Rate 80 Blood Pressure 134/80 Body Mass Index 32.2 Labs Results: 01/03/21 13:17 01/03/21 13:17 Medications Medications Current Medications Generic Name Dose Route Start Last Admin Trade Name Freq PRN Reason Stop Dose Admin Acetaminophen 650 mg 01/04/21 17:24 Acetaminophen 325 Mg Tablet PO Q6H PRN Headache/Pain Mild Scale (1-3) Al Hydroxide/Mg Hydroxide 30 ml 01/04/21 17:24 Magnesium Hydrox/Alum Hydrox 30 Ml Oral.Susp PO Q6H PRN Heartburn/Nausea Albuterol Sulfate 1 puff 01/04/21 08:32 Albuterol Sulfate 90 Mcg 8 Gm Inhaler INHALE QID PRN wheezing Diphenhydramine HCl 50 mg 01/04/21 17:24 Diphenhydramine Hcl 25 Mg Tablet PO Q4H PRN agitation Divalproex Sodium 500 mg 01/05/21 21:00 01/05/21 20:58 Divalproex Sodium Er 500 Mg Tab.Er.24h PO 500 mg BEDTIME CAROL Administration Divalproex Sodium 250 mg 01/06/21 09:00 01/06/21 09:16 Divalproex Sodium 250 Mg Tablet.Dr PO 250 mg DAILY CAROL Administration Docusate Sodium 100 mg 01/04/21 09:00 01/06/21 09:20 Docusate Sodium 100 Mg Capsule PO Not Given BID CAROL Folic Acid 1 mg 01/04/21 17:30 01/06/21 09:20 Folic Acid 1 Mg Tablet PO 01/07/21 17:29 Not Given DAILY CAROL Gabapentin 300 mg 01/04/21 18:00 01/06/21 09:16 Gabapentin 300 Mg Capsule PO 01/06/21 23:59 300 mg TID CAROL Administration Gabapentin 300 mg 01/07/21 08:00 Gabapentin 300 Mg Capsule PO 01/08/21 23:59 BID CAROL Gabapentin 300 mg 01/09/21 09:00 Gabapentin 300 Mg Capsule PO 01/10/21 23:59 DAILY CAROL Haloperidol 5 mg 01/04/21 17:24 Haloperidol 5 Mg Tablet PO Q4H PRN agitation Lorazepam 2 mg 01/04/21 17:24 Lorazepam 1 Mg Tablet PO Q4H PRN agitation Lorazepam 1 mg 01/04/21 21:00 01/06/21 09:17 Lorazepam 1 Mg Tablet PO 01/06/21 23:59 1 mg TID CAROL Administration Lorazepam 1 mg 01/07/21 21:00 Lorazepam 1 Mg Tablet PO 01/07/21 23:59 BID CAROL Lorazepam 1 mg 01/08/21 09:00 Lorazepam 0.5 Mg Tablet PO 01/09/21 23:59 DAILY CAROL Nicotine 21 mg 01/04/21 17:24 Nicotine 21 Mg Patch.Td24 TRANSDERMA DAILY PRN Nicotine Cravings Nicotine Polacrilex 4 mg 01/04/21 17:24 Nicotine Polacrilex 2 Mg Gum BUCCAL Q2H PRN Nicotine Cravings Quetiapine Fumarate 50 mg 01/04/21 09:00 01/04/21 14:41 Quetiapine Fumarate 50 Mg Tablet PO 50 mg TID PRN Administration anxiety/restlessness Senna 8.6 mg 01/04/21 21:00 01/05/21 20:58 Sennosides 8.6 Mg Tablet PO 8.6 mg BEDTIME CAROL Administration Thiamine HCl 100 mg 01/04/21 17:30 01/06/21 09:15 Thiamine Hcl 100 Mg Tablet PO 01/07/21 17:29 100 mg DAILY CAROL Administration Allergies Allergies Allergy/AdvReac Type Severity Reaction Status Date / Time bee pollen [BEE STINGS] Allergy Unknown swelling Verified 08/10/20 22:22 ibuprofen [From MOTRIN] Allergy Unknown FACIAL Verified 08/10/20 22:22 SWELLING Assessment & Plan Assessment & Plan (1) Suicidal ideation: Status: Acute Code(s): R45.851 - Suicidal ideations (2) Cocaine use disorder: Status: Acute Code(s): F14.10 - Cocaine abuse, uncomplicated (3) Bipolar I disorder: Status: Acute Code(s): F31.9 - Bipolar disorder, unspecified (4) Alcohol use disorder, moderate, dependence: Status: Acute Code(s): F10.20 - Alcohol dependence, uncomplicated (5) Opioid use disorder: Status: Acute Code(s): F11.99 - Opioid use, unspecified with unspecified opioid-induced disorder Assessment and Plan: 25 y.o. Female who carries a diagnosis of bipolar disorder, polysubstance use, and alcohol use disorder. She presented to [facility] with HI and SI, recent attempt to OD on heroin, admitted to [facility] via Section 12b. Has hx of chronic homelessness, polysubstance and alcohol abuse (daily drinker, daily crack cocaine use), and multiple hospitalizations/ [facility]CS/ EATs admissions. She currently presents with agitation, depression, anxiety, hyposomnia, disorganized thought content, and paranoid ideation. Patient currently being treated for alcohol withdrawal with Ativan and gabapentin taper Patient also started on Depakote for mood stability Patient with irritable edge and a knows she will interview limited. Will continue to monitor Plan: 1. Continue CIWA protocols and PRN ativan for alcohol use disorder, 2. continue PRN seroquel due to patient reporting benefit for agitation, may schedule and titrate to therapeutic dose 3. Will not restart lithium, as she has a hx of non-adherence and reports lack of benefit. 4. Hold adderall XR due to current paranoid ideation, may exacerbate sx (although patient is asking for this); patient would likely benefit from this medication at some point however given her substance abuse history giving her a script for it is somewhat problematic; will have to discuss this further with patient 5. Monitor response to medications. 6. Monitor for safety in the milieu. Discharge on stabilization. Patient seen. Chart reviewed. Discussed with team. Obtain collateral contact info?as needed Greater than 50% of the session was spent on counseling and/or coordination of care
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
== END 2021-01-06 14:57 | disposition home or self-care (01) | DRG 753 ==
LOC: HO.ED 15:47 → HO.PM5 01-04 17:23
PROVIDERS: Nurse Practitioner Family; Admitting Provider Psychiatry & Neurology Psychiatry; Emergency Provider Emergency Medicine; Visit Provider Psychiatry & Neurology Psychiatry
DX: F31.9 Bipolar disorder, unspecified (principal); R45.851 Suicidal ideations; F10.20 Alcohol dependence, uncomplicated; F14.10 Cocaine abuse, uncomplicated; F17.210 Nicotine dependence, cigarettes, uncomplicated; F11.99 Opioid use, unspecified with unspecified opioid-induced disorder; Z20.822 Contact with and (suspected) exposure to COVID-19; Z59.0 Homelessness; Z71.6 Tobacco abuse counseling; Z88.6 Allergy status to analgesic agent
CPT/HCPCS: 36415; 80048; 80076; 80178; 80307; 82077; 85025; 87635; 93005; 99285

== ENCOUNTER 2021-01-07 12:59 | Emergency (ER) | payer OTHER, SELFPAY ==
--- NOTE | ~2021-01-07 | XR_ITS ---
EXAMINATION: XR CHEST CLINICAL INFORMATION: Leukocytosis COMPARISON: March 14, 2020 TECHNIQUE: AP portable chest view of the chest was obtained. FINDINGS: No significant abnormality is noted involving the heart, lungs, mediastinum, bony thorax or soft tissues. XR/XR chest 1V IMPRESSION: No acute disease.
[2021-01-07 13:35] VITALS: BP 150/80; PULSE 115; RESP 18; TEMP 35.7; O2SAT 96; BMI 27.4
[2021-01-07 13:38] LABS: Urine Pregnancy NEGATIVE (NEGATIVE)
[2021-01-07 13:39] LABS: UPreg QC Valid YES
--- NOTE | 2021-01-07 13:40 | PC.NURSE ---
Pt cooperative with this RN. She was changed over into hospital attire and provided a urine sample.
[2021-01-07 13:46] LABS: Amphetamine Screen Urine Not Detected (Not Detect); Barbiturates, Urine Not Detected (Not Detect); Benzodiazepines Screen Urine Not Detected (Not Detect); Cannabinoid Screen Urine Not Detected (Not Detect); Cocaine Screen Urine POSITIVE (Not Detect); Fentanyl, urine POSITIVE (Not Detect); Opiate Screen Urine Not Detected (Not Detect); Phencyclidine Screen Urine Not Detected (Not Detect)
[2021-01-07] MEDS: HaloperidoL 5 MG TABLET PO (13:46)
[2021-01-07] MEDS: diphenhydrAMINE HCL 25 MG TABLET 50 MG PO (13:46)
[2021-01-07] MEDS: LORazepam 1 MG TABLET 2 MG PO (13:46)
--- NOTE | 2021-01-07 13:48 | PC.NURSE ---
Pt willingly took po medications. She was informed that the medications would help her to calm and relax as she was worked up. She has been cooperative and agrees with plan for po meds to help her to take part in her care effectively.
--- NOTE | 2021-01-07 13:49 | ED_ITS ---
HPI - Psych General Chief Complaint: Psychiatric Symptoms <Aarti Crane PA-C - Last Filed: 01/07/21 18:11> Stated Complaint: SI/HI/ETOH <Aarti Crane PA-C - Last Filed: 01/07/21 18:11> Time Seen by Provider: 01/07/21 13:17 <Aarti Crane PA-C - Last Filed: 01/07/21 18:11> Source: patient <ANTONIO Sandoval Last Filed: 01/07/21 18:11> Mode of arrival: ambulatory <ANTONIO Sandoval Last Filed: 01/07/21 18:11> Limitations: no limitations <ANTONIO Sandoval Last Filed: 01/07/21 18:11> History of Present Illness HPI Narrative: Patient is a 25-year-old female with a past medical history of bipolar disorder, opioid use disorder and alcohol use disorder as well as previous SI presents with SI, patient states she has thoughts of hurting herself but cannot articulate why. She states that she does have a plan but does not want to repeat it to anyone. She states that she did not use any drugs today or yesterday but did drink alcohol yesterday and has been up all night. She states she is ?One crazy bitch? and she would like to be moved to the psych wang. She denies any physical complaints at this time. She denies any thoughts of hurting anyone else. <Aarti Crane PA-C - Last Filed: 01/07/21 18:11> Related Data Home Medications: Home Medications Medication Instructions Recorded Confirmed divalproex 500 mg tablet,extended 1 tab PO DAILY 01/07/21 01/07/21 release 24 hr <ANTONIO Sandoval Last Filed: 01/07/21 18:11> Allergies/Adverse Reactions: Allergies Allergy/AdvReac Type Severity Reaction Status Date / Time bee pollen [BEE STINGS] Allergy Unknown swelling Verified 08/10/20 22:22 ibuprofen [From MOTRIN] Allergy Unknown FACIAL Verified 08/10/20 22:22 SWELLING <ANTONIO Sandoval Last Filed: 01/07/21 18:11> Review of Systems Review of Systems: Yes all other systems are reviewed and are negative <Aarti Crane PA-C - Last Filed: 01/07/21 18:11> [facility] Past Medical History Medical History: Medical History Asthma Bipolar disorder, unspecified Depression Substance abuse <Aarti Crane PA-C - Last Filed: 01/07/21 18:11> Social History Social History: Social History Household Members: None Housing: Homeless Do you presently have visiting nurse or other home services: No Alcohol intake: current Alcohol intake frequency: 0-2 drinks per day Alcohol type: hard liquor Patient Tobacco Use Status: Current everyday Tobacco user Tobacco use type: Cigarette Cigarette Packs Per Day: 0.5 Cigarettes Per Day: 10.0 Second Hand Smoke Exposure: No Substance Use Type: Crack/Cocaine Advance Directives: No Advance Directives Information Provided: Yes Patient : No service: No Sexual orientation: Straight/Heterosexual <Aarti Crane PA-C - Last Filed: 01/07/21 18:11> Physical Exam Vital Signs: Vital Signs: Last Vital Signs Temp 97.8 F 01/08/21 00:19 Pulse 70 01/08/21 00:19 Resp 16 01/08/21 00:19 BP 142/76 H 01/08/21 00:19 Pulse Ox 98 01/08/21 00:19 Body Mass Index 27.4 <Aarti Crane PA-C - Last Filed: 01/07/21 18:11> Vital Signs: Last Vital Signs Temp 97.8 F 01/08/21 00:19 Pulse 70 01/08/21 00:19 Resp 16 01/08/21 00:19 BP 142/76 H 01/08/21 00:19 Pulse Ox 98 01/08/21 00:19 Body Mass Index 27.4 <ESTIVEN Webb - Last Filed: 01/07/21 21:04> Vital Signs: Last Vital Signs Temp 97.8 F 01/08/21 00:19 Pulse 70 01/08/21 00:19 Resp 16 01/08/21 00:19 BP 142/76 H 01/08/21 00:19 Pulse Ox 98 01/08/21 00:19 Body Mass Index 27.4 <ALIDA Gambnio Last Filed: 01/08/21 10:12> Const: General: cooperative, healthy appearing, comfortable, no acute distress and well developed <ANTONIO Sandoval Last Filed: 01/07/21 18:11> Orientation/consciousness: patient oriented x3 <Aarti Crane PA-C - Last Filed: 01/07/21 18:11> Limitations: no limitations <ANTONIO Sandoval Last Filed: 01/07/21 18:11> HENMT: Head: Yes normal to inspection <ANTONIO Sandoval Last Filed: 01/07/21 18:11> Eyes: General: appearance normal, both eyes and all related structures <ANTONIO Sandoval Last Filed: 01/07/21 18:11> Neck: Neck: Yes normal visual inspection and Yes full ROM <Aarti Crane PA-C - Last Filed: 01/07/21 18:11> Resp: Effort & Inspection: normal respiratory effort and able to speak in complete sentences <ANTONIO Sandoval Last Filed: 01/07/21 18:11> Skin: General skin exam: no rashes or lesions noted <ANTONIO Sandoval Last Filed: 01/07/21 18:11> Neuro: General: patient oriented x3 <ANTONIO Sandoval Last Filed: 01/07/21 18:11> Extrem: General: Yes normal to inspection <ANTONIO Sandoval Last Filed: 01/07/21 18:11> Psych: Thought content: Suicidality present, no homicidality and no hallucinations <ANTONIO Sandoval Last Filed: 01/07/21 18:11> Course Course Course Narrative: Patient is a 25-year-old female with a past medical history of bipolar disorder, opioid use disorder and alcohol use disorder as well as previous SI presents with SI, patient states she has thoughts of hurting herself but cannot articulate why. VSS, physical exam unremarkable. Patient will be transferred to the POD. UA positive for cocaine and fentanyl. Care team notified, consult placed. Before I was able to examine the patient, she was becoming verbally abusive with the staff there sore she was given some Haldol and Ativan and Benadryl. During my exam, the patient was calm and respectful. <Aarti Crane PA-C - Last Filed: 01/07/21 18:11> Reevaluation(s) Reevaluation #1: Sign-out to Tanika <Aarti Crane PA-C - Last Filed: 01/07/21 18:11> Time: 17:44 <Aarti Crane PA-C - Last Filed: 01/07/21 18:11> Reevaluation #2: Patient was seen by crisis team. Patient continues to feels unsafe to be discharged home reports SI with not actual having any plan. Perhaps premature discharge from previous admission. Patient is agreeable to stay and be admitted as an inpatient. <ESTIVEN Webb - Last Filed: 01/07/21 21:04> Time: 08:18 <ALIDA Gambino - Last Filed: 01/08/21 10:12> Reevaluation #3: 01/2021--physician observation continued. Vital signs are stable, no complaints overnight, patient currently sleeping. Patient is a [facility] section 12 inpatient bed search. Labs reviewed with a noted leukocytosis 17.6, likely reactive, and patient received medication restraints yesterday. AST/ALT acute on chronically elevated. Will check UA/CXR to rule out acute infection. <ALIDA Gambino - Last Filed: 01/08/21 10:12> MDM - Psych Lab Data Attestation: I reviewed the patient's lab results. <Aarti Crane PA-C - Last Filed: 01/07/21 18:11> Result diagrams: : 01/07/21 16:08 01/07/21 16:08 <Aarti Crane PA-C - Last Filed: 01/07/21 18:11> Labs: Lab Results 01/07/21 01/07/21 01/07/21 Range/Units 13:22 13:22 16:08 WBC (4.8-10.8) X10*3/uL RBC (4.20-5.50) X10*6/uL Hgb (12.0-16.0) g/dl Hct (37-47) % MCV (80-98) fL MCH (27.0-33.0) pg MCHC (31.0-35.0) g/dl RDW (11.0-16.0) % Plt Count (160-400) X10*3/uL MPV (9.4-12.3) fL Immature Gran % (Auto) (0.0-0.4) % Neut % (Auto) (45-73) % Lymph % (Auto) (20-40) % [place] % (Auto) (2-11) % Eos % (Auto) (0-4) % Baso % (Auto) (0-2) % Lymph # (Auto) (1.2-4.9) X10*3/uL [place] # (Auto) (0.1-1.2) X10*3/uL Eos # (Auto) (0.0-0.4) X10*3/uL Baso # (Auto) (0.0-0.2) X10*3/uL Abs Immat Gran (auto) (0.00-0.03) X10*3/uL Absolute Neuts (auto) (2.0-8.3) X10*3/uL Absolute Nucleated RBC (0.0-0.012) X10*3/uL Nucleated RBC % (auto) (0.0-0.2) /100WBC Sodium (135-145) mmol/L Potassium (3.3-5.1) mmol/L Chloride (96-108) mmol/L Carbon Dioxide (22-29) mmol/L Anion Gap (12-20) BUN (9-16) mg/dL Creatinine (0.5-1.4) mg/dL Estim Creat Clear Calc Estimated GFR Random Glucose (60-115) mg/dL Calcium (8.4-10.2) mg/dL Total Bilirubin (0.0-1.0) mg/dL AST (5-31) U/L ALT (0-31) U/L Alkaline Phosphatase (39-117) U/L Total Protein (6.5-8.0) g/dL Albumin (3.5-5.0) g/dL Urine Test NEGATIVE (NEGATIVE) Urine Opiates Screen Not Detected (Not Detect) Urine Fentanyl Screen POSITIVE H (Not Detect) Ur Barbiturates Screen Not Detected (Not Detect) Ur Phencyclidine Scrn Not Detected (Not Detect) Ur Amphetamines Screen Not Detected (Not Detect) U Benzodiazepines Scrn Not Detected (Not Detect) Urine Cocaine Screen POSITIVE H (Not Detect) U Marijuana (THC) Screen Not Detected (Not Detect) Ethyl Alcohol mg/dL COVID-19 (GINA) Negative (Negative) COVID-19 Clin Com See Note 01/07/21 01/07/21 01/07/21 Range/Units 16:08 16:08 16:08 WBC 17.6 H (4.8-10.8) X10*3/uL RBC 4.62 (4.20-5.50) X10*6/uL Hgb 13.7 (12.0-16.0) g/dl Hct 41.8 (37-47) % MCV 90.5 (80-98) fL MCH 29.7 (27.0-33.0) pg MCHC 32.8 (31.0-35.0) g/dl RDW 15.1 (11.0-16.0) % Plt Count 299 (160-400) X10*3/uL MPV 10.3 (9.4-12.3) fL Immature Gran % (Auto) 0.3 (0.0-0.4) % Neut % (Auto) 75.1 H (45-73) % Lymph % (Auto) 16.8 L (20-40) % [place] % (Auto) 6.1 (2-11) % Eos % (Auto) 1.2 (0-4) % Baso % (Auto) 0.5 (0-2) % Lymph # (Auto) 3.0 (1.2-4.9) X10*3/uL [place] # (Auto) 1.1 (0.1-1.2) X10*3/uL Eos # (Auto) 0.2 (0.0-0.4) X10*3/uL Baso # (Auto) 0.1 (0.0-0.2) X10*3/uL Abs Immat Gran (auto) 0.05 H (0.00-0.03) X10*3/uL Absolute Neuts (auto) 13.2 H (2.0-8.3) X10*3/uL Absolute Nucleated RBC 0.000 (0.0-0.012) X10*3/uL Nucleated RBC % (auto) 0.0 (0.0-0.2) /100WBC Sodium 140 (135-145) mmol/L Potassium 4.5 (3.3-5.1) mmol/L Chloride 105 (96-108) mmol/L Carbon Dioxide 28 (22-29) mmol/L Anion Gap 12 (12-20) BUN 10 (9-16) mg/dL Creatinine 0.91 (0.5-1.4) mg/dL Estim Creat Clear Calc 83.9 Estimated GFR > 60 Random Glucose 87 (60-115) mg/dL Calcium 10.2 D (8.4-10.2) mg/dL Total Bilirubin 0.5 (0.0-1.0) mg/dL AST 38 H (5-31) U/L ALT 65 H (0-31) U/L Alkaline Phosphatase 86 (39-117) U/L Total Protein 7.9 (6.5-8.0) g/dL Albumin 4.7 (3.5-5.0) g/dL Urine Test (NEGATIVE) Urine Opiates Screen (Not Detect) Urine Fentanyl Screen (Not Detect) Ur Barbiturates Screen (Not Detect) Ur Phencyclidine Scrn (Not Detect) Ur Amphetamines Screen (Not Detect) U Benzodiazepines Scrn (Not Detect) Urine Cocaine Screen (Not Detect) U Marijuana (THC) Screen (Not Detect) Ethyl Alcohol < 10 mg/dL COVID-19 (GINA) (Negative) COVID-19 Clin Com <Aarti Crane PA-C - Last Filed: 01/07/21 18:11> Lab Results 01/07/21 01/07/21 01/07/21 Range/Units 13:22 13:22 16:08 WBC (4.8-10.8) X10*3/uL RBC (4.20-5.50) X10*6/uL Hgb (12.0-16.0) g/dl Hct (37-47) % MCV (80-98) fL MCH (27.0-33.0) pg MCHC (31.0-35.0) g/dl RDW (11.0-16.0) % Plt Count (160-400) X10*3/uL MPV (9.4-12.3) fL Immature Gran % (Auto) (0.0-0.4) % Neut % (Auto) (45-73) % Lymph % (Auto) (20-40) % [place] % (Auto) (2-11) % Eos % (Auto) (0-4) % Baso % (Auto) (0-2) % Lymph # (Auto) (1.2-4.9) X10*3/uL [place] # (Auto) (0.1-1.2) X10*3/uL Eos # (Auto) (0.0-0.4) X10*3/uL Baso # (Auto) (0.0-0.2) X10*3/uL Abs Immat Gran (auto) (0.00-0.03) X10*3/uL Absolute Neuts (auto) (2.0-8.3) X10*3/uL Absolute Nucleated RBC (0.0-0.012) X10*3/uL Nucleated RBC % (auto) (0.0-0.2) /100WBC Sodium (135-145) mmol/L Potassium (3.3-5.1) mmol/L Chloride (96-108) mmol/L Carbon Dioxide (22-29) mmol/L Anion Gap (12-20) BUN (9-16) mg/dL Creatinine (0.5-1.4) mg/dL Estim Creat Clear Calc Estimated GFR Random Glucose (60-115) mg/dL Calcium (8.4-10.2) mg/dL Total Bilirubin (0.0-1.0) mg/dL AST (5-31) U/L ALT (0-31) U/L Alkaline Phosphatase (39-117) U/L Total Protein (6.5-8.0) g/dL Albumin (3.5-5.0) g/dL Urine Test NEGATIVE (NEGATIVE) Urine Opiates Screen Not Detected (Not Detect) Urine Fentanyl Screen POSITIVE H (Not Detect) Ur Barbiturates Screen Not Detected (Not Detect) Ur Phencyclidine Scrn Not Detected (Not Detect) Ur Amphetamines Screen Not Detected (Not Detect) U Benzodiazepines Scrn Not Detected (Not Detect) Urine Cocaine Screen POSITIVE H (Not Detect) U Marijuana (THC) Screen Not Detected (Not Detect) Ethyl Alcohol mg/dL COVID-19 (GINA) Negative (Negative) COVID-19 Clin Com See Note 01/07/21 01/07/21 01/07/21 Range/Units 16:08 16:08 16:08 WBC 17.6 H (4.8-10.8) X10*3/uL RBC 4.62 (4.20-5.50) X10*6/uL Hgb 13.7 (12.0-16.0) g/dl Hct 41.8 (37-47) % MCV 90.5 (80-98) fL MCH 29.7 (27.0-33.0) pg MCHC 32.8 (31.0-35.0) g/dl RDW 15.1 (11.0-16.0) % Plt Count 299 (160-400) X10*3/uL MPV 10.3 (9.4-12.3) fL Immature Gran % (Auto) 0.3 (0.0-0.4) % Neut % (Auto) 75.1 H (45-73) % Lymph % (Auto) 16.8 L (20-40) % [place] % (Auto) 6.1 (2-11) % Eos % (Auto) 1.2 (0-4) % Baso % (Auto) 0.5 (0-2) % Lymph # (Auto) 3.0 (1.2-4.9) X10*3/uL [place] # (Auto) 1.1 (0.1-1.2) X10*3/uL Eos # (Auto) 0.2 (0.0-0.4) X10*3/uL Baso # (Auto) 0.1 (0.0-0.2) X10*3/uL Abs Immat Gran (auto) 0.05 H (0.00-0.03) X10*3/uL Absolute Neuts (auto) 13.2 H (2.0-8.3) X10*3/uL Absolute Nucleated RBC 0.000 (0.0-0.012) X10*3/uL Nucleated RBC % (auto) 0.0 (0.0-0.2) /100WBC Sodium 140 (135-145) mmol/L Potassium 4.5 (3.3-5.1) mmol/L Chloride 105 (96-108) mmol/L Carbon Dioxide 28 (22-29) mmol/L Anion Gap 12 (12-20) BUN 10 (9-16) mg/dL Creatinine 0.91 (0.5-1.4) mg/dL Estim Creat Clear Calc 83.9 Estimated GFR > 60 Random Glucose 87 (60-115) mg/dL Calcium 10.2 D (8.4-10.2) mg/dL Total Bilirubin 0.5 (0.0-1.0) mg/dL AST 38 H (5-31) U/L ALT 65 H (0-31) U/L Alkaline Phosphatase 86 (39-117) U/L Total Protein 7.9 (6.5-8.0) g/dL Albumin 4.7 (3.5-5.0) g/dL Urine Test (NEGATIVE) Urine Opiates Screen (Not Detect) Urine Fentanyl Screen (Not Detect) Ur Barbiturates Screen (Not Detect) Ur Phencyclidine Scrn (Not Detect) Ur Amphetamines Screen (Not Detect) U Benzodiazepines Scrn (Not Detect) Urine Cocaine Screen (Not Detect) U Marijuana (THC) Screen (Not Detect) Ethyl Alcohol < 10 mg/dL COVID-19 (GINA) (Negative) COVID-19 Clin Com <Meri Montemayor, CONTACT [employer] PROFESSIONAL- - Last Filed: 01/07/21 21:04> Lab Results 01/07/21 01/07/21 01/07/21 Range/Units 13:22 13:22 16:08 WBC (4.8-10.8) X10*3/uL RBC (4.20-5.50) X10*6/uL Hgb (12.0-16.0) g/dl Hct (37-47) % MCV (80-98) fL MCH (27.0-33.0) pg MCHC (31.0-35.0) g/dl RDW (11.0-16.0) % Plt Count (160-400) X10*3/uL MPV (9.4-12.3) fL Immature Gran % (Auto) (0.0-0.4) % Neut % (Auto) (45-73) % Lymph % (Auto) (20-40) % [place] % (Auto) (2-11) % Eos % (Auto) (0-4) % Baso % (Auto) (0-2) % Lymph # (Auto) (1.2-4.9) X10*3/uL [place] # (Auto) (0.1-1.2) X10*3/uL Eos # (Auto) (0.0-0.4) X10*3/uL Baso # (Auto) (0.0-0.2) X10*3/uL Abs Immat Gran (auto) (0.00-0.03) X10*3/uL Absolute Neuts (auto) (2.0-8.3) X10*3/uL Absolute Nucleated RBC (0.0-0.012) X10*3/uL Nucleated RBC % (auto) (0.0-0.2) /100WBC Sodium (135-145) mmol/L Potassium (3.3-5.1) mmol/L Chloride (96-108) mmol/L Carbon Dioxide (22-29) mmol/L Anion Gap (12-20) BUN (9-16) mg/dL Creatinine (0.5-1.4) mg/dL Estim Creat Clear Calc Estimated GFR Random Glucose (60-115) mg/dL Calcium (8.4-10.2) mg/dL Total Bilirubin (0.0-1.0) mg/dL AST (5-31) U/L ALT (0-31) U/L Alkaline Phosphatase (39-117) U/L Total Protein (6.5-8.0) g/dL Albumin (3.5-5.0) g/dL Urine Test NEGATIVE (NEGATIVE) Urine Opiates Screen Not Detected (Not Detect) Urine Fentanyl Screen POSITIVE H (Not Detect) Ur Barbiturates Screen Not Detected (Not Detect) Ur Phencyclidine Scrn Not Detected (Not Detect) Ur Amphetamines Screen Not Detected (Not Detect) U Benzodiazepines Scrn Not Detected (Not Detect) Urine Cocaine Screen POSITIVE H (Not Detect) U Marijuana (THC) Screen Not Detected (Not Detect) Ethyl Alcohol mg/dL COVID-19 (GINA) Negative (Negative) COVID-19 Clin Com See Note 01/07/21 01/07/21 01/07/21 Range/Units 16:08 16:08 16:08 WBC 17.6 H (4.8-10.8) X10*3/uL RBC 4.62 (4.20-5.50) X10*6/uL Hgb 13.7 (12.0-16.0) g/dl Hct 41.8 (37-47) % MCV 90.5 (80-98) fL MCH 29.7 (27.0-33.0) pg MCHC 32.8 (31.0-35.0) g/dl RDW 15.1 (11.0-16.0) % Plt Count 299 (160-400) X10*3/uL MPV 10.3 (9.4-12.3) fL Immature Gran % (Auto) 0.3 (0.0-0.4) % Neut % (Auto) 75.1 H (45-73) % Lymph % (Auto) 16.8 L (20-40) % [place] % (Auto) 6.1 (2-11) % Eos % (Auto) 1.2 (0-4) % Baso % (Auto) 0.5 (0-2) % Lymph # (Auto) 3.0 (1.2-4.9) X10*3/uL [place] # (Auto) 1.1 (0.1-1.2) X10*3/uL Eos # (Auto) 0.2 (0.0-0.4) X10*3/uL Baso # (Auto) 0.1 (0.0-0.2) X10*3/uL Abs Immat Gran (auto) 0.05 H (0.00-0.03) X10*3/uL Absolute Neuts (auto) 13.2 H (2.0-8.3) X10*3/uL Absolute Nucleated RBC 0.000 (0.0-0.012) X10*3/uL Nucleated RBC % (auto) 0.0 (0.0-0.2) /100WBC Sodium 140 (135-145) mmol/L Potassium 4.5 (3.3-5.1) mmol/L Chloride 105 (96-108) mmol/L Carbon Dioxide 28 (22-29) mmol/L Anion Gap 12 (12-20) BUN 10 (9-16) mg/dL Creatinine 0.91 (0.5-1.4) mg/dL Estim Creat Clear Calc 83.9 Estimated GFR > 60 Random Glucose 87 (60-115) mg/dL Calcium 10.2 D (8.4-10.2) mg/dL Total Bilirubin 0.5 (0.0-1.0) mg/dL AST 38 H (5-31) U/L ALT 65 H (0-31) U/L Alkaline Phosphatase 86 (39-117) U/L Total Protein 7.9 (6.5-8.0) g/dL Albumin 4.7 (3.5-5.0) g/dL Urine Test (NEGATIVE) Urine Opiates Screen (Not Detect) Urine Fentanyl Screen (Not Detect) Ur Barbiturates Screen (Not Detect) Ur Phencyclidine Scrn (Not Detect) Ur Amphetamines Screen (Not Detect) U Benzodiazepines Scrn (Not Detect) Urine Cocaine Screen (Not Detect) U Marijuana (THC) Screen (Not Detect) Ethyl Alcohol < 10 mg/dL COVID-19 (GINA) (Negative) COVID-19 Clin Com <ALIDA Gambino - Last Filed: 01/08/21 10:12> ECG Data Attestation: I personally reviewed and interpreted this ECG as follows: <ALIDA Gambino - Last Filed: 01/08/21 10:12> ECG interpretation date: 01/08/21 <ALIDA Gambino - Last Filed: 01/08/21 10:12> ECG interpretation time: 10:10 <ALIDA Gambino - Last Filed: 01/08/21 10:12> Interpretation: EKG normal sinus rhythm with a rate of 76. QTC 445. Nonischemic/no STEMI <ALIDA Gambino - Last Filed: 01/08/21 10:12> Discharge Plan Discharge Clinical Impression: Suicidal ideation, Alcohol use disorder, moderate, dependence <Aarti Crane PA-C - Last Filed: 01/07/21 18:11> Prescriptions: No Action divalproex 500 mg tablet extended release 24 hr 1 tab PO DAILY RF: 0 <Aarti Crane PA-C - Last Filed: 01/07/21 18:11>
[2021-01-07 13:54] VITALS: BP 145/81; PULSE 109; RESP 18; TEMP 35.7; O2SAT 97
--- NOTE | 2021-01-07 14:14 | PC.NURSE ---
patient presents as mildly pressured wandering unit, looking into other patients window, sounds irritable asking for the covid shot , states she is not current with medication, reports recent use of drugs and alcohol, contracts for safety.
[2021-01-07 16:13] LABS: MANUAL DIFF FLAG NO
[2021-01-07 16:15] LABS: Basophils Absolute Auto 0.1 X10*3/uL (0.0-0.2); Basophils Percent Auto 0.5 % (0-2); Eosinophils Absolute Auto 0.2 X10*3/uL (0.0-0.4); Eosinophils Percent Auto 1.2 % (0-4); Hematocrit 41.8 % (37-47); Hemoglobin 13.7 g/dl (12.0-16.0); Imm Gran Abs Auto 0.05 X10*3/uL (0.00-0.03); Imm Gran Pct Auto 0.3 % (0.0-0.4); Lymphocytes Percent Auto 16.8 % (20-40); Mean Corpuscular HGB Conc 32.8 g/dl (31.0-35.0); Mean Corpuscular Hemoglobin 29.7 pg (27.0-33.0); Mean Corpuscular Volume 90.5 fL (80-98); Mean Platelet Volume 10.3 fL (9.4-12.3); Monocytes Absolute Auto 1.1 X10*3/uL (0.1-1.2); Monocytes Percent Auto 6.1 % (2-11); Neutrophils Absolute Auto 13.2 X10*3/uL (2.0-8.3); Neutrophils Percent Auto 75.1 % (45-73); Platelet Count 299 X10*3/uL (160-400); Red Blood Count 4.62 X10*6/uL (4.20-5.50); Red Cell Distribution Width 15.1 % (11.0-16.0); White Blood Count 17.6 X10*3/uL (4.8-10.8)
[2021-01-07 16:27] LABS: COVID-19 Test Negative (Negative); IDNOW Serial# 55D5AD1C
[2021-01-07 16:33] LABS: Alanine Aminotransferase 65 U/L (0-31); Albumin Level 4.7 g/dL (3.5-5.0); Alkaline Phosphatase 86 U/L (39-117); Anion Gap 12 (12-20); Aspartate Amino Transferase 38 U/L (5-31); Bilirubin Total 0.5 mg/dL (0.0-1.0); Blood Urea Nitrogen 10 mg/dL (9-16); Calcium 10.2 mg/dL (8.4-10.2); Carbon Dioxide 28 mmol/L (22-29); Chloride 105 mmol/L (96-108); Creatinine Clr Calc Pharmacy 83.9; Estimated Glomerular Filt Rate > 60; Glucose Random 87 mg/dL (60-115); Potassium 4.5 mmol/L (3.3-5.1); Sodium 140 mmol/L (135-145); Total Protein 7.9 g/dL (6.5-8.0)
[2021-01-07 19:15] LABS: Ethanol < 10 mg/dL
--- NOTE | 2021-01-07 19:42 | PC.NURSE ---
[facility] at bedside
--- NOTE | 2021-01-07 20:11 | PC.NURSE ---
REYES finished evaluation, disposition for patient is section 12 inpatient bed search. Patient is currently in her resting in her bed, no distress observed/reported, will continue to monitor.
--- NOTE | 2021-01-07 22:55 | PC.NURSE ---
Patient in bed appears sleeping, no distress observed/reported, patient's disposition per N is section 12 inpatient bed search, will continue to monitor
--- NOTE | 2021-01-07 23:22 | PC.NURSE ---
MARIXAN called/reported no clinician available
--- NOTE | 2021-01-08 | ECG_ITS ---
Test Reason : MEDCLEARANCE Blood Pressure : / mmHG Vent. Rate : 076 BPM Atrial Rate : 076 BPM P-R Int : 138 ms QRS Dur : 084 ms QT Int : 396 ms P-R-T Axes : 028 061 044 degrees QTc Int : 445 ms Normal sinus rhythm Normal ECG When compared with ECG of 04-JAN-2021 15:50, No significant change was found Referred By: Generic ED Physician Electronically Signed By:SINGH AGUILAR
[2021-01-08 00:19] VITALS: BP 142/76; PULSE 70; RESP 16; TEMP 36.6; O2SAT 98
--- NOTE | 2021-01-08 06:10 | PC.NURSE ---
Patient slept through the night, no distress observed/reported, behavior appropriate, VSS, appetite good, disposition per N is section 12 inpatient bed search, pending EKG, will continue to monitor.
--- NOTE | 2021-01-08 06:59 | PC.NURSE ---
patient appears to remain at rest at present, respirations are even and unlabored, patient appears in no distress.
--- NOTE | 2021-01-08 11:16 | PC.NURSE ---
per request from receiving facility patient was presented with the information that a recent employee had tested positive for covid at their facility and despite this informations, she still wants to be accepted for treatment. client accepted, client did ask questions about the ability to smoke there, t/w told patient this was highly unlikely.
[2021-01-08] MEDS: LORazepam 1 MG TABLET 2 MG PO ×2 (11:23→18:43)
[2021-01-08 13:22] LABS: Glucose Urine UA NEG (NEG); Leukocyte Esterase Urine NEG (NEG); Nitrite Urine NEG (NEG); UACC Culture Trigger NO; Urine Blood TRACE (NEG); Urine Ketones NEG (NEG); Urine Protein NEG (NEG-TRACE)
[2021-01-08 13:23] LABS: Appearance Urine HAZY; Color Urine YELLOW
[2021-01-08 13:45] LABS: WBC Urine 0-2 /HPF (0-4)
[2021-01-08 13:46] LABS: Squamous Epithelial Cell Urine 2+ /LPF
--- NOTE | 2021-01-08 17:25 | PC.NURSE ---
client expressing frustration regarding time change and availability of acceptance to receiving facility
[2021-01-08 17:29] VITALS: RESP 16
== END 2021-01-08 19:48 ==
PROVIDERS: Physician Assistant; Emergency Provider Emergency Medicine; PCP Internal Medicine
DX: F33.1 Major depressive disorder, recurrent, moderate (principal); R45.851 Suicidal ideations; F10.10 Alcohol abuse, uncomplicated; F11.10 Opioid abuse, uncomplicated; Y90.0 Blood alcohol level of less than 20 mg/100 ml; F17.210 Nicotine dependence, cigarettes, uncomplicated; Z20.822 Contact with and (suspected) exposure to COVID-19; Z71.6 Tobacco abuse counseling; Z79.899 Other long term (current) drug therapy
CPT/HCPCS: 36415; 71045; 80053; 80307; 81001; 81025; 82077; 85025; 87635; 93005; 96372; 99285; Q0163

== ENCOUNTER 2021-02-07 03:10 | Emergency (ER) | payer OTHER, SELFPAY ==
[2021-02-07 03:33] VITALS: BP 134/72; BP 136/67; PULSE 102; PULSE 84; RESP 16; O2SAT 96; BMI 30.2
[2021-02-07 04:08] VITALS: BP 136/67; PULSE 102; RESP 16; O2SAT 96
--- NOTE | 2021-02-07 04:08 | ED_ITS ---
HPI - Psych General Chief Complaint: Psychiatric Symptoms Stated Complaint: polysubstance abuse/SI Time Seen by Provider: 02/07/21 04:08 Mode of arrival: EMS History of Present Illness HPI Narrative: 25-year-old female's refusing to talk at this time, but has histo ry of schizophrenia/bipolar. As per staff she was very abrasive and is declining all testing at this time. She is brought in by EMS with complaints of SI/HI and has been drinking alcohol. Patient requesting inpatient for help with addiction and psychiatric issues. Related Data Home Medications Medication Instructions Recorded Confirmed divalproex 500 mg tablet,extended 1 tab PO DAILY 01/07/21 01/07/21 release 24 hr Allergies Allergy/AdvReac Type Severity Reaction Status Date / Time bee pollen [BEE STINGS] Allergy Unknown swelling Verified 08/10/20 22:22 ibuprofen [From MOTRIN] Allergy Unknown FACIAL Verified 08/10/20 22:22 SWELLING Review of Systems Review of Systems: Patient refusing to speak at this time. [facility] Past Medical History Source: nursing notes reviewed Medical History Antisocial behavior Asthma Bipolar disorder, unspecified Depression Substance abuse Social History Social History Household Members: None Housing: Homeless Do you presently have visiting nurse or other home services: No Alcohol intake: current Alcohol intake frequency: 0-2 drinks per day Alcohol type: hard liquor Patient Tobacco Use Status: Current everyday Tobacco user Tobacco use type: Cigarette Cigarette Packs Per Day: 0.5 Cigarettes Per Day: 10.0 Second Hand Smoke Exposure: No Substance Use Type: Crack/Cocaine Advance Directives: No service: No Sexual orientation: Straight/Heterosexual Physical Exam Vital Signs: Vital Signs: Last Vital Signs Pulse 72 02/07/21 07:56 Resp 16 02/07/21 07:56 BP 118/60 02/07/21 07:56 Pulse Ox 98 02/07/21 07:56 Body Mass Index 30.2 VITAL SIGNS: Reviewed. Patient declining physical exam at this time. Course Course Course Narrative: 25-year-old female with history and clinical presentation consistent with poor med compliance and polysubstance use. Behavioral team consult was placed and will re-evaluate patient in the morning for physical exam and lab work. Reevaluation(s) Reevaluation #1: Patient placed in physician observation because the patient needed more time for medical clearance and subsequent behavioral team evaluation. At the time observation was started the patient's vital signs were stable, patient is alert and oriented but slightly agitated, neuro: Nonfocal, CV RRR, lungs clear Time: 04:14 Discharge Plan Discharge Clinical Impression: Bipolar I disorder, Suicidal ideation Prescriptions: No Action divalproex 500 mg tablet extended release 24 hr 1 tab PO DAILY RF: 0
--- NOTE | 2021-02-07 04:59 | PC.NURSE ---
[facility] referral faxed.
[2021-02-07 07:56] VITALS: BP 118/60; PULSE 72; RESP 16; O2SAT 98
[2021-02-07 09:06] LABS: COVID-19 Test Negative (Negative)
[2021-02-07 09:07] LABS: Ethanol 11 mg/dL
--- NOTE | 2021-02-07 10:04 | MHC.CARE ---
CARE Team met with patient in [facility] to see if she is interested in detox, advised her can be referred to [facility] Crisis or speak to someone on the Recovery Team. Patient would like to discuss detox options.
[2021-02-07] MEDS: LORazepam 1 MG TABLET PO (10:22)
[2021-02-07 10:55] VITALS: BP 135/90; PULSE 85; RESP 16; O2SAT 100
--- NOTE | 2021-02-07 10:55 | MHC.RECOVSUP ---
Recovery Support note: Patient is a 25 year old Trinidadian speaking female who presented to [facility] on 02/07 via EMS reporting vague SI/HI while intoxicated with a desire to get help for her alcohol addiction. Patient currently denies SI/HI and reports no thoughts to harm herself. Patient reports she would like to go to detox and that she is willing to go anywhere. Patient reports she has been to detox in the past and that she is familiar with the process. This contract technical writer will assist patient in securing an ATS bed.
--- NOTE | 2021-02-07 15:35 | MHC.RECOVSUP ---
Recovery Support note: [facility] is unable to confirm when a bed will be available. ATS bedsearch exhausted. Patient expressed concern that she may be discharged after dark if no ATS bed opens up. This caption writer discussed alternative discharge plans with patient. Patient willing to go to [facility] to work on getting into a senior living for the night. Patient accepted information on ATS facilities and [facility]. Patient has the contact information for this caption writer and [facility] in the event that [facility] is able to accept her and she needs a ride to the facility. Patient transported via Lyft to [facility]. Encouraged patient to contact [facility] when she gets there. Encouraged patient to contact crisis or return to the ED if she begins to feel unsafe. Discussed case with patient's RN and ED provider.
== END 2021-02-07 15:20 | disposition home or self-care (01) ==
PROVIDERS: Emergency Provider Student in an Organized Health Care Education/Training Program
DX: F31.9 Bipolar disorder, unspecified (principal); R45.851 Suicidal ideations; F17.210 Nicotine dependence, cigarettes, uncomplicated; Z20.822 Contact with and (suspected) exposure to COVID-19; Z71.6 Tobacco abuse counseling; Z79.899 Other long term (current) drug therapy
CPT/HCPCS: 36415; 82077; 87635; 99284

== ENCOUNTER 2021-02-10 05:39 | Inpatient (IN) | payer OTHER, SELFPAY ==
--- NOTE | 2021-02-10 | ECG_ITS ---
Test Reason : MED CLEARANCE Blood Pressure : / mmHG Vent. Rate : 085 BPM Atrial Rate : 085 BPM P-R Int : 130 ms QRS Dur : 080 ms QT Int : 380 ms P-R-T Axes : 047 069 047 degrees QTc Int : 452 ms Poor data quality, interpretation may be adversely affected Normal sinus rhythm Normal ECG When compared with ECG of 08-JAN-2021 10:10, No significant change was found Referred By: Saroj Reed Electronically Signed By:SINGH AGUILAR
[2021-02-10 05:49] VITALS: BP 146/93; PULSE 120; RESP 18; TEMP 37; O2SAT 96; BMI 32.1
[2021-02-10 05:59] VITALS: BP 146/93; PULSE 120; RESP 18; O2SAT 96
[2021-02-10] MEDS: LORazepam 1 MG TABLET 2 MG PO (06:16)
[2021-02-10 06:45] LABS: Appearance Urine CLEAR; Color Urine YELLOW; Glucose Urine UA NEG (NEG); Leukocyte Esterase Urine 1+ (NEG); Nitrite Urine NEG (NEG); Specific Gravity - Urine <= 1.005 (1.005-1.025); UACC Culture Trigger YES; Urine Blood 1+ (NEG); Urine Ketones NEG (NEG); Urine Protein NEG (NEG-TRACE)
[2021-02-10 06:50] LABS: UPreg QC Valid YES; Urine Pregnancy NEGATIVE (NEGATIVE)
[2021-02-10 06:53] LABS: Bacteria Urine 1+ /LPF; Squamous Epithelial Cell Urine 1+ /LPF; UACC CULT YES
[2021-02-10 07:03] LABS: Amphetamine Screen Urine Not Detected (Not Detect); Barbiturates, Urine Not Detected (Not Detect); Benzodiazepines Screen Urine Not Detected (Not Detect); Cannabinoid Screen Urine Not Detected (Not Detect); Cocaine Screen Urine POSITIVE (Not Detect); Fentanyl, urine Not Detected (Not Detect); Opiate Screen Urine Not Detected (Not Detect); Phencyclidine Screen Urine Not Detected (Not Detect)
[2021-02-10 07:05] LABS: COVID-19 Test Negative (Negative)
--- NOTE | 2021-02-10 07:47 | PC.NURSE ---
patient appears in no distress at present remains asleep with even unlabored breaths patient appears in no distress
--- NOTE | 2021-02-10 08:01 | ED_ITS ---
HPI - Psych General Chief Complaint: Psychiatric Symptoms Stated Complaint: detox Time Seen by Provider: 02/10/21 06:13 Source: patient Mode of arrival: ambulatory Limitations: no limitations History of Present Illness HPI Narrative: 25 y/o female with history of bipolar disorder, alcohol abuse, polysubstance abuse, homelessness with recent admission to [facility] with SI and HI and attempt to overdose who presents to the ER today with suicidal thoughts. On arrival early this morning she was loud, agitated, and disruptive. She was not cooperative with staff. She was agreeable to oral medication and took 2 mg of oral Ativan with improvement in her behaviors. She is resting comfortably at this time. Upon interviewing patient was guarded and did not want to talk. complaint: suicidal ideation Onset (ago): unknown Duration: constant History of same: Yes Relieving factors: none Exacerbating factors: none Context: recent drug abuse and significant life stressor Associated psychiatric symptoms: depression, suicidal ideation, homicidal ideation and racing thoughts Associated symptoms: denies other symptoms Treatments prior to arrival: none If self harm: admits thoughts of self harm and has plan Details of plan: overdose Related Data Home Medications Medication Instructions Recorded Confirmed No Known Home Meds 02/10/21 02/10/21 Allergies Allergy/AdvReac Type Severity Reaction Status Date / Time bee pollen [BEE STINGS] Allergy Unknown swelling Verified 08/10/20 22:22 ibuprofen [From MOTRIN] Allergy Unknown FACIAL Verified 08/10/20 22:22 SWELLING Review of Systems Review of Systems: Constitutional: No Fever, No Chills Cardiovascular: No Chest Pain, No SOB Respiratory: No Cough, No Sputum Gastrointestinal: No Nausea, No Vomiting, No Diarrhea, No abdominal Pain Musculoskeletal: No joint pain, No Myalgias Skin: No Skin Lesions, No rash Neuro: No Weakness, No Numbness, No Dizziness, + Headache Psych: + Anxiety/Panic, + Depression Heme/Lymph: No Bruising, No Lymphadenopathy PMFSH Past Medical History Medical History Antisocial behavior Asthma Bipolar disorder, unspecified Depression Substance abuse Social History Social History Household Members: None Housing: Homeless Do you presently have visiting nurse or other home services: No Alcohol intake: current Alcohol intake frequency: 0-2 drinks per day Alcohol type: hard liquor Patient Tobacco Use Status: Current everyday Tobacco user Tobacco use type: Cigarette Cigarette Packs Per Day: 0.5 Cigarettes Per Day: 10.0 Second Hand Smoke Exposure: No Substance Use Type: Crack/Cocaine Advance Directives: No Advance Directives Information Provided: No Patient : No service: No Sexual orientation: Straight/Heterosexual Physical Exam Vital Signs: Vital Signs: Last Vital Signs Temp 98.6 F 02/10/21 05:49 Pulse 120 H 02/10/21 05:59 Resp 18 02/10/21 05:59 BP 146/93 H 02/10/21 05:59 Pulse Ox 96 02/10/21 05:59 Body Mass Index 32.1 Appearance: Alert. Oriented X3. No acute distress. HEENT: normal to inspection Neck: Normal inspection. Neck supple. CVS: Normal heart rate and rhythm. Pulses normal. Respiratory: No respiratory distress. Breath sounds normal. Abdomen: Soft and nontender. +BS x4 Skin: Skin warm and dry. Normal skin color. Normal skin turgor. No rashes. Extremities: No lower extremity edema. Neuro/psych: Oriented X 3. No motor deficit. No sensory deficit. CN II-XII grossly intact. Angry, admits to HI/SI. uncoopertive Course Course Course Narrative: 25-year-old female with a history of polysubstance abuse, bipolar, antisocial behaviors, coming into the ER with very angry and disruptive behavior, she reports suicidal and homicidal ideation. She pushed the registration is computer into the employee. She required several employees for redirection. She was given oral Ativan with improvement. Will check basic lab workup and have BPH and evaluate her. Reevaluation(s) Reevaluation #1: Physician observation started at 12:50. Patient placed in physician observation because patient is awaiting N evaluation for the possible need of inpatient psych admission. At the time observation was started patient's vital signs were stable. Patient is alert and oriented. Neuro exam is non-focal. CV: RRR and lungs are clear. Will continue to monitor. Reevaluation #2: Patient was seen by [facility] and is deemed to require inpatient psychiatric care. Recommending inpatient bed search at this time. Consultations Consultation #1: [facility] MDM - Psych Lab Data Result diagrams: 02/10/21 12:45 02/10/21 12:45 Labs: Lab Results 02/10/21 02/10/21 02/10/21 Range/Units 06:11 06:11 06:11 WBC (4.8-10.8) X10*3/uL RBC (4.20-5.50) X10*6/uL Hgb (12.0-16.0) g/dl Hct (37-47) % MCV (80-98) fL MCH (27.0-33.0) pg MCHC (31.0-35.0) g/dl RDW (11.0-16.0) % Plt Count (160-400) X10*3/uL MPV (9.4-12.3) fL Immature Gran % (Auto) (0.0-0.4) % Neut % (Auto) (45-73) % Lymph % (Auto) (20-40) % [place] % (Auto) (2-11) % Eos % (Auto) (0-4) % Baso % (Auto) (0-2) % Lymph # (Auto) (1.2-4.9) X10*3/uL [place] # (Auto) (0.1-1.2) X10*3/uL Eos # (Auto) (0.0-0.4) X10*3/uL Baso # (Auto) (0.0-0.2) X10*3/uL Abs Immat Gran (auto) (0.00-0.03) X10*3/uL Absolute Neuts (auto) (2.0-8.3) X10*3/uL Absolute Nucleated RBC (0.0-0.012) X10*3/uL Nucleated RBC % (auto) (0.0-0.2) /100WBC Sodium (135-145) mmol/L Potassium (3.3-5.1) mmol/L Chloride (96-108) mmol/L Carbon Dioxide (22-29) mmol/L Anion Gap (12-20) BUN (9-16) mg/dL Creatinine (0.5-1.4) mg/dL Estim Creat Clear Calc Estimated GFR Random Glucose (60-115) mg/dL Calcium (8.4-10.2) mg/dL Magnesium (1.6-2.6) mg/dL Total Bilirubin (0.0-1.0) mg/dL Direct Bilirubin (0.0-0.5) mg/dL AST (5-31) U/L ALT (0-31) U/L Alkaline Phosphatase (39-117) U/L Total Protein (6.5-8.0) g/dL Albumin (3.5-5.0) g/dL Urine Color YELLOW Urine Appearance CLEAR Urine pH 6.0 (5.0-8.0) Ur Specific [place] <= 1.005 (1.005-1.025) Urine Protein NEG (NEG-TRACE) MG/DL Urine Glucose (UA) NEG (NEG) MG/DL Urine Ketones NEG (NEG) MG/DL Urine Blood 1+ H (NEG) Urine Nitrite NEG (NEG) Ur Leukocyte Esterase 1+ H (NEG) Urine RBC 1-4 (0) /HPF Urine WBC 1-4 (0-4) /HPF Ur Squamous Epith Cells 1+ /LPF Urine Bacteria 1+ /LPF Urine Test NEGATIVE (NEGATIVE) Urine Opiates Screen (Not Detect) Urine Fentanyl Screen (Not Detect) Ur Barbiturates Screen (Not Detect) Ur Phencyclidine Scrn (Not Detect) Ur Amphetamines Screen (Not Detect) U Benzodiazepines Scrn (Not Detect) Urine Cocaine Screen (Not Detect) U Marijuana (THC) Screen (Not Detect) Ethyl Alcohol mg/dL COVID-19 (GINA) Negative (Negative) COVID-19 Clin Com See Note 02/10/21 02/10/21 02/10/21 Range/Units 06:11 12:45 12:45 WBC 15.5 H (4.8-10.8) X10*3/uL RBC 4.61 (4.20-5.50) X10*6/uL Hgb 13.7 (12.0-16.0) g/dl Hct 40.8 (37-47) % MCV 88.5 (80-98) fL MCH 29.7 (27.0-33.0) pg MCHC 33.6 (31.0-35.0) g/dl RDW 14.7 (11.0-16.0) % Plt Count 348 (160-400) X10*3/uL MPV 10.4 (9.4-12.3) fL Immature Gran % (Auto) 0.3 (0.0-0.4) % Neut % (Auto) 62.6 (45-73) % Lymph % (Auto) 27.7 (20-40) % [place] % (Auto) 6.5 (2-11) % Eos % (Auto) 2.3 (0-4) % Baso % (Auto) 0.6 (0-2) % Lymph # (Auto) 4.3 (1.2-4.9) X10*3/uL [place] # (Auto) 1.0 (0.1-1.2) X10*3/uL Eos # (Auto) 0.4 (0.0-0.4) X10*3/uL Baso # (Auto) 0.1 (0.0-0.2) X10*3/uL Abs Immat Gran (auto) 0.05 H (0.00-0.03) X10*3/uL Absolute Neuts (auto) 9.7 H (2.0-8.3) X10*3/uL Absolute Nucleated RBC 0.000 (0.0-0.012) X10*3/uL Nucleated RBC % (auto) 0.0 (0.0-0.2) /100WBC Sodium 138 (135-145) mmol/L Potassium 4.4 (3.3-5.1) mmol/L Chloride 104 (96-108) mmol/L Carbon Dioxide 25 (22-29) mmol/L Anion Gap 13 (12-20) BUN 7 L (9-16) mg/dL Creatinine 0.91 (0.5-1.4) mg/dL Estim Creat Clear Calc 90.9 Estimated GFR > 60 Random Glucose 90 (60-115) mg/dL Calcium 9.7 (8.4-10.2) mg/dL Magnesium 2.1 (1.6-2.6) mg/dL Total Bilirubin 0.6 (0.0-1.0) mg/dL Direct Bilirubin 0.3 (0.0-0.5) mg/dL AST 15 D (5-31) U/L ALT 12 (0-31) U/L Alkaline Phosphatase 88 (39-117) U/L Total Protein 7.8 (6.5-8.0) g/dL Albumin 4.5 (3.5-5.0) g/dL Urine Color Urine Appearance Urine pH (5.0-8.0) Ur Specific [place] (1.005-1.025) Urine Protein (NEG-TRACE) MG/DL Urine Glucose (UA) (NEG) MG/DL Urine Ketones (NEG) MG/DL Urine Blood (NEG) Urine Nitrite (NEG) Ur Leukocyte Esterase (NEG) Urine RBC (0) /HPF Urine WBC (0-4) /HPF Ur Squamous Epith Cells /LPF Urine Bacteria /LPF Urine Test (NEGATIVE) Urine Opiates Screen Not Detected (Not Detect) Urine Fentanyl Screen Not Detected (Not Detect) Ur Barbiturates Screen Not Detected (Not Detect) Ur Phencyclidine Scrn Not Detected (Not Detect) Ur Amphetamines Screen Not Detected (Not Detect) U Benzodiazepines Scrn Not Detected (Not Detect) Urine Cocaine Screen POSITIVE H (Not Detect) U Marijuana (THC) Screen Not Detected (Not Detect) Ethyl Alcohol mg/dL COVID-19 (GINA) (Negative) COVID-19 Clin Com 02/10/21 Range/Units 12:45 WBC (4.8-10.8) X10*3/uL RBC (4.20-5.50) X10*6/uL Hgb (12.0-16.0) g/dl Hct (37-47) % MCV (80-98) fL MCH (27.0-33.0) pg MCHC (31.0-35.0) g/dl RDW (11.0-16.0) % Plt Count (160-400) X10*3/uL MPV (9.4-12.3) fL Immature Gran % (Auto) (0.0-0.4) % Neut % (Auto) (45-73) % Lymph % (Auto) (20-40) % [place] % (Auto) (2-11) % Eos % (Auto) (0-4) % Baso % (Auto) (0-2) % Lymph # (Auto) (1.2-4.9) X10*3/uL [place] # (Auto) (0.1-1.2) X10*3/uL Eos # (Auto) (0.0-0.4) X10*3/uL Baso # (Auto) (0.0-0.2) X10*3/uL Abs Immat Gran (auto) (0.00-0.03) X10*3/uL Absolute Neuts (auto) (2.0-8.3) X10*3/uL Absolute Nucleated RBC (0.0-0.012) X10*3/uL Nucleated RBC % (auto) (0.0-0.2) /100WBC Sodium (135-145) mmol/L Potassium (3.3-5.1) mmol/L Chloride (96-108) mmol/L Carbon Dioxide (22-29) mmol/L Anion Gap (12-20) BUN (9-16) mg/dL Creatinine (0.5-1.4) mg/dL Estim Creat Clear Calc Estimated GFR Random Glucose (60-115) mg/dL Calcium (8.4-10.2) mg/dL Magnesium (1.6-2.6) mg/dL Total Bilirubin (0.0-1.0) mg/dL Direct Bilirubin (0.0-0.5) mg/dL AST (5-31) U/L ALT (0-31) U/L Alkaline Phosphatase (39-117) U/L Total Protein (6.5-8.0) g/dL Albumin (3.5-5.0) g/dL Urine Color Urine Appearance Urine pH (5.0-8.0) Ur Specific [place] (1.005-1.025) Urine Protein (NEG-TRACE) MG/DL Urine Glucose (UA) (NEG) MG/DL Urine Ketones (NEG) MG/DL Urine Blood (NEG) Urine Nitrite (NEG) Ur Leukocyte Esterase (NEG) Urine RBC (0) /HPF Urine WBC (0-4) /HPF Ur Squamous Epith Cells /LPF Urine Bacteria /LPF Urine Test (NEGATIVE) Urine Opiates Screen (Not Detect) Urine Fentanyl Screen (Not Detect) Ur Barbiturates Screen (Not Detect) Ur Phencyclidine Scrn (Not Detect) Ur Amphetamines Screen (Not Detect) U Benzodiazepines Scrn (Not Detect) Urine Cocaine Screen (Not Detect) U Marijuana (THC) Screen (Not Detect) Ethyl Alcohol < 10 mg/dL COVID-19 (GINA) (Negative) COVID-19 Clin Com Discharge Plan Discharge Clinical Impression: Cocaine use disorder, Bipolar I disorder, Depression Prescriptions: No Action No Known Home Meds RF: 0
--- NOTE | 2021-02-10 12:42 | PHA.MEDREC ---
Pharmacy Consult ? Medication Reconciliation Pharmacy has completed the medication reconciliation. Patient reports she has no home and takes no medications. Her fill history show that no medication has been filled since december 2020. Pattie Goel, RaissaD
[2021-02-10 12:50] LABS: MANUAL DIFF FLAG NO
[2021-02-10 12:51] LABS: Basophils Absolute Auto 0.1 X10*3/uL (0.0-0.2); Basophils Percent Auto 0.6 % (0-2); Eosinophils Absolute Auto 0.4 X10*3/uL (0.0-0.4); Eosinophils Percent Auto 2.3 % (0-4); Hematocrit 40.8 % (37-47); Hemoglobin 13.7 g/dl (12.0-16.0); Imm Gran Abs Auto 0.05 X10*3/uL (0.00-0.03); Imm Gran Pct Auto 0.3 % (0.0-0.4); Lymphocytes Absolute Auto 4.3 X10*3/uL (1.2-4.9); Lymphocytes Percent Auto 27.7 % (20-40); Mean Corpuscular HGB Conc 33.6 g/dl (31.0-35.0); Mean Corpuscular Hemoglobin 29.7 pg (27.0-33.0); Mean Corpuscular Volume 88.5 fL (80-98); Mean Platelet Volume 10.4 fL (9.4-12.3); Monocytes Percent Auto 6.5 % (2-11); Neutrophils Absolute Auto 9.7 X10*3/uL (2.0-8.3); Neutrophils Percent Auto 62.6 % (45-73); Platelet Count 348 X10*3/uL (160-400); Red Blood Count 4.61 X10*6/uL (4.20-5.50); Red Cell Distribution Width 14.7 % (11.0-16.0); White Blood Count 15.5 X10*3/uL (4.8-10.8)
--- NOTE | 2021-02-10 12:52 | PC.NURSE ---
pt allowed staff to draw her blood.
--- NOTE | 2021-02-10 12:52 | PC.NURSE ---
informed by Lis that pt will become a section 12 and be an inpatient bed search
[2021-02-10 13:06] LABS: Ethanol < 10 mg/dL
[2021-02-10 13:08] LABS: Alanine Aminotransferase 12 U/L (0-31); Albumin Level 4.5 g/dL (3.5-5.0); Alkaline Phosphatase 88 U/L (39-117); Anion Gap 13 (12-20); Aspartate Amino Transferase 15 U/L (5-31); Bilirubin Direct 0.3 mg/dL (0.0-0.5); Bilirubin Total 0.6 mg/dL (0.0-1.0); Blood Urea Nitrogen 7 mg/dL (9-16); Calcium 9.7 mg/dL (8.4-10.2); Carbon Dioxide 25 mmol/L (22-29); Chloride 104 mmol/L (96-108); Creatinine Clr Calc Pharmacy 90.9; Estimated Glomerular Filt Rate > 60; Glucose Random 90 mg/dL (60-115); Magnesium 2.1 mg/dL (1.6-2.6); Potassium 4.4 mmol/L (3.3-5.1); Sodium 138 mmol/L (135-145); Total Protein 7.8 g/dL (6.5-8.0)
[2021-02-10 18:04] VITALS: BP 144/81; PULSE 90; RESP 17; TEMP 36.6
--- NOTE | 2021-02-10 18:44 | PC.NURSE ---
pt resting with yes closed, breaths even and unlabored. pt at dinner.
--- NOTE | 2021-02-10 22:41 | PC.NURSE ---
Patient calm and quiet, resting in her room, no distress observed/reported, awaiting [facility] to pick her up, VSS, will continue to monitor.
[2021-02-11 06:00] VITALS: BP 116/80; BP 118/80; PULSE 86; RESP 16; TEMP 36.3; TEMP 36.4; O2SAT 96; O2SAT 99
--- NOTE | 2021-02-11 10:23 | HO.PSYADMNOT ---
HPI Chief Complaint: Bipolar disorder, polysubstance abuse Sources of Information: patient interviewed, chart reviewed and crisis/core team assessment reviewed HPI Subjective Notes: Amaya Warning, Conditional Voluntary and 3 Day Narrative: 25 y.o. Female who carries a diagnosis of bipolar disorder, polysubstance use, and alcohol use disorder. She presented to [facility] [place] HI and SI saying she attempted to OD. On admission, patient was irritable and intermittently be belligerent towards peers and staff and told a peer not to sit next to her or risk getting slapped. Patient recognized parts data writer from last admission on approach and at 1st said that she should slap the shit out of [parts data writer] for discharging [her] until parts data writer reminded her that she wanted discharge to which she said oh yeah your right and gave parts data writer a fist bump. Patient signed a CV on admission but soon signed a 3 day notice saying she wanted discharge. She denied any SI, HI or AVH. She said she did not want any medication including Depakote; parts data writer explained she liked it the last time she was here to which she replied I did not even go fill that script at the pharmacy. She said she drinks alcohol daily but would not say how much and denied having any withdrawal symptoms; she was willing to and did except a 1 time dose of Ativan and gabapentin, but overall felt it unnecessary. She said she would go to detox if she needed/wanted to. said she wanted to discharge saying that she would find a place to stay at a senior living. Glass Technologist asked about the suicidal and homicidal comments she made in the ED. At this, patient chuckled and said it's not true...I needed a place to sleep last night... so she lied about having SI in order to get a bed. She says there's no way she would ever hurt herself and denies any SI; she denies HI other than and self-defense. Patient was well groomed, with neatly braided hair, wearing appropriate casual clothes. Her speech was organized, linear and logical. Although patient is easily triggered and defensive (told cleaning woman to get F out of her room), her behaviors are organized and she's able to interact in a calm, appropriate way when she wants to, which she did with both parts data writer and dialysis social worker. Patient is asking for discharge. She does not want treatment. She is fully alert and oriented. She admits to malingering, fabricating SI in order to get a place to sleep last night and is now requesting discharge so she can go to a senior living which she prefers. She denies any SI or HI. She denies depression. She may or may not be in alcohol withdrawal but talks about going to a detox if need be. Patient has clear antisocial behaviors which she also exhibited during her recent admission last month, when she stole another patients shoes; when confronted by staff, she returned the shoes but gave a verbal threat to the general milue if anyone entered her room to reciprocate. At that time patient was on the verge of being administratively discharged. Currently, Patient is not in imminent risk for harm to self or others and does not meet criteria for involuntary commitment. Given her behaviors and disinterest in treatment, her request for discharge honored. Medical Evaluation Reviewed: Yes [facility] Medical History (Updated 02/12/21 @ 12:00 by Obed Oropeza MD) Antisocial behavior Asthma Bipolar disorder, unspecified Depression Malingering Substance abuse Family History: Deferred Social History: Homeless Substance History: Cocaine, opiates, alcohol Trauma History: Positive history Diagnostics Vital Signs (24Hr): Vital Signs - 24 hr 02/10/21 18:04 02/11/21 06:00 Temperature 97.9 F 97.6 F Pulse Rate 90 86 Respiratory Rate 17 16 Blood Pressure 144/81 H 116/80 Pulse Oximetry 96 Body Mass Index 32.1 Labs Results: 02/10/21 12:45 02/10/21 12:45 Labs: Laboratory Results - last 48 hr 02/10/21 02/10/21 02/10/21 06:11 06:11 06:11 WBC RBC Hgb Hct MCV MCH MCHC RDW Plt Count MPV Immature Gran % (Auto) Neut % (Auto) Lymph % (Auto) [place] % (Auto) Eos % (Auto) Baso % (Auto) Lymph # (Auto) [place] # (Auto) Eos # (Auto) Baso # (Auto) Abs Immat Gran (auto) Absolute Neuts (auto) Absolute Nucleated RBC Nucleated RBC % (auto) Sodium Potassium Chloride Carbon Dioxide Anion Gap BUN Creatinine Estim Creat Clear Calc Estimated GFR Random Glucose Calcium Magnesium Total Bilirubin Direct Bilirubin AST ALT Alkaline Phosphatase Total Protein Albumin Urine Color YELLOW Urine Appearance CLEAR Urine pH 6.0 Ur Specific [place] <= 1.005 Urine Protein NEG Urine Glucose (UA) NEG Urine Ketones NEG Urine Blood 1+ H Urine Nitrite NEG Ur Leukocyte Esterase 1+ H Urine RBC 1-4 Urine WBC 1-4 Ur Squamous Epith Cells 1+ Urine Bacteria 1+ Urine Test NEGATIVE Urine Opiates Screen Urine Fentanyl Screen Ur Barbiturates Screen Ur Phencyclidine Scrn Ur Amphetamines Screen U Benzodiazepines Scrn Urine Cocaine Screen U Marijuana (THC) Screen Ethyl Alcohol COVID-19 (GINA) Negative COVID-19 Clin Com See Note 02/10/21 02/10/21 02/10/21 06:11 12:45 12:45 WBC 15.5 H RBC 4.61 Hgb 13.7 Hct 40.8 MCV 88.5 MCH 29.7 MCHC 33.6 RDW 14.7 Plt Count 348 MPV 10.4 Immature Gran % (Auto) 0.3 Neut % (Auto) 62.6 Lymph % (Auto) 27.7 [place] % (Auto) 6.5 Eos % (Auto) 2.3 Baso % (Auto) 0.6 Lymph # (Auto) 4.3 [place] # (Auto) 1.0 Eos # (Auto) 0.4 Baso # (Auto) 0.1 Abs Immat Gran (auto) 0.05 H Absolute Neuts (auto) 9.7 H Absolute Nucleated RBC 0.000 Nucleated RBC % (auto) 0.0 Sodium 138 Potassium 4.4 Chloride 104 Carbon Dioxide 25 Anion Gap 13 BUN 7 L Creatinine 0.91 Estim Creat Clear Calc 90.9 Estimated GFR > 60 Random Glucose 90 Calcium 9.7 Magnesium 2.1 Total Bilirubin 0.6 Direct Bilirubin 0.3 AST 15 D ALT 12 Alkaline Phosphatase 88 Total Protein 7.8 Albumin 4.5 Urine Color Urine Appearance Urine pH Ur Specific [place] Urine Protein Urine Glucose (UA) Urine Ketones Urine Blood Urine Nitrite Ur Leukocyte Esterase Urine RBC Urine WBC Ur Squamous Epith Cells Urine Bacteria Urine Test Urine Opiates Screen Not Detected Urine Fentanyl Screen Not Detected Ur Barbiturates Screen Not Detected Ur Phencyclidine Scrn Not Detected Ur Amphetamines Screen Not Detected U Benzodiazepines Scrn Not Detected Urine Cocaine Screen POSITIVE H U Marijuana (THC) Screen Not Detected Ethyl Alcohol COVID-19 (GINA) COVID-19 Clin Com 02/10/21 12:45 WBC RBC Hgb Hct MCV MCH MCHC RDW Plt Count MPV Immature Gran % (Auto) Neut % (Auto) Lymph % (Auto) [place] % (Auto) Eos % (Auto) Baso % (Auto) Lymph # (Auto) [place] # (Auto) Eos # (Auto) Baso # (Auto) Abs Immat Gran (auto) Absolute Neuts (auto) Absolute Nucleated RBC Nucleated RBC % (auto) Sodium Potassium Chloride Carbon Dioxide Anion Gap BUN Creatinine Estim Creat Clear Calc Estimated GFR Random Glucose Calcium Magnesium Total Bilirubin Direct Bilirubin AST ALT Alkaline Phosphatase Total Protein Albumin Urine Color Urine Appearance Urine pH Ur Specific [place] Urine Protein Urine Glucose (UA) Urine Ketones Urine Blood Urine Nitrite Ur Leukocyte Esterase Urine RBC Urine WBC Ur Squamous Epith Cells Urine Bacteria Urine Test Urine Opiates Screen Urine Fentanyl Screen Ur Barbiturates Screen Ur Phencyclidine Scrn Ur Amphetamines Screen U Benzodiazepines Scrn Urine Cocaine Screen U Marijuana (THC) Screen Ethyl Alcohol < 10 COVID-19 (GINA) COVID-19 Clin Com Meds/Allergies Allergies Allergies Allergy/AdvReac Type Severity Reaction Status Date / Time bee pollen [BEE STINGS] Allergy Unknown swelling Verified 08/10/20 22:22 ibuprofen [From MOTRIN] Allergy Unknown FACIAL Verified 08/10/20 22:22 SWELLING Mental Status Exam Mental Status Exam Narrative: Pt is alert and oriented; behavior is defensive in general though can be friendly and calm when wants to; patient is not in distress; dressed in casual attire and well groomed; mood is described as good and affect either congruent or irritable; eye contact appropriate; Speech is normal rate, volume and prosody and not pressured; psychomotor agitation intermittently present; thought process is organized, linear, logical and goal directed. Thought content is on discharge; otherwise TC relevant to pertinent topics and without any delusional content, paranoid ideations or grandiosity; denies any SI/HI. There is no evidence of perceptual disturbance. ?Patients insight and judgment are impaired but at baseline. ? Assessment & Plan Assessment & Plan (1) Malingering: Status: Acute Code(s): Z76.5 - Malingerer [conscious simulation] (2) Bipolar disorder, unspecified: Status: Chronic Code(s): F31.9 - Bipolar disorder, unspecified Assessment and Plan: remains provisional dx as hx is confused by interactions of chronic substance abuse, antisocial/axis II behaviors and trauma (3) Cocaine use disorder: Status: Chronic Code(s): F14.10 - Cocaine abuse, uncomplicated (4) Antisocial behavior: Status: Chronic (5) Alcohol use disorder, moderate, dependence: Status: Chronic Code(s): F10.20 - Alcohol dependence, uncomplicated (6) Opioid use disorder: Status: Chronic Code(s): F11.99 - Opioid use, unspecified with unspecified opioid-induced disorder Assessment and Plan: Impression: 25 y.o. Female who carries a diagnosis of bipolar disorder, polysubstance use, and alcohol use disorder. She presented to [facility] [place] HI and SI saying she attempted to OD. On admission, patient was irritable and intermittently be belligerent towards peers and staff and told a peer not to sit next to her or risk getting slapped. Patient recognized parts data writer from last admission on approach and at 1st said that she should slap the shit out of [parts data writer] for discharging [her] until parts data writer reminded her that she wanted discharge to which she said oh yeah your right and gave parts data writer a fist bump. Patient signed a CV on admission but soon signed a 3 day notice saying she wanted discharge. She denied any SI, HI or AVH. She said she did not want any medication including Depakote; parts data writer explained she liked it the last time she was here to which she replied I did not even go fill that script at the pharmacy. She said she drinks alcohol daily but would not say how much and denied having any withdrawal symptoms; she was willing to and did except a 1 time dose of Ativan and gabapentin, but overall felt it unnecessary. She said she would go to detox if she needed/wanted to. said she wanted to discharge saying that she would find a place to stay at a senior living. Glass Technologist asked about the suicidal and homicidal comments she made in the ED. At this, patient chuckled and said it's not true...I needed a place to sleep last night... so she lied about having SI in order to get a bed. She says there's no way she would ever hurt herself and denies any SI; she denies HI other than and self-defense. Patient was well groomed, with neatly braided hair, wearing appropriate casual clothes. Her speech was organized, linear and logical. Although patient is easily triggered and defensive (told cleaning woman to get F out of her room), her behaviors are organized and she's able to interact in a calm, appropriate way when she wants to, which she did with both parts data writer and dialysis social worker. Patient is asking for discharge. She does not want treatment. She is fully alert and oriented. She admits to malingering, fabricating SI in order to get a place to sleep last night and is now requesting discharge so she can go to a senior living which she prefers. She denies any SI or HI. She denies depression. She may or may not be in alcohol withdrawal but talks about going to a detox if need be. Patient has clear antisocial behaviors which she also exhibited during her recent admission last month, when she stole another patients shoes; when confronted by staff, she returned the shoes but gave a verbal threat to the general milue if anyone entered her room to reciprocate. At that time patient was on the verge of being administratively discharged. Currently, Patient is not in imminent risk for harm to self or others and does not meet criteria for involuntary commitment. Given her behaviors and disinterest in treatment, her request for discharge honored. plan: DC Reason for continued inpatient stay Substantial Risk for: stable for discharge
--- NOTE | 2021-02-11 11:11 | PC.NURSE ---
Spoke with patient, asked if she would like to receive the flu vaccine, patient refused.
[2021-02-11] MEDS: Gabapentin 300 MG CAPSULE PO (11:39)
[2021-02-11] MEDS: LORazepam 1 MG TABLET PO (11:39)
--- NOTE | 2021-02-11 12:31 | P.DS_ITS ---
DS: Providers Provider Date of Service: 02/11/21 Date of admission: 02/10/21 21:53 Primary care physician: Unknown Physician Attending physician on admission: Obed Oropeza Attending physician on discharge: Obed Oropeza DS: Diagnosis Discharge Diagnosis (1) Bipolar disorder, unspecified: Status: Chronic (2) Cocaine use disorder: Status: Chronic (3) Alcohol use disorder, moderate, dependence: Status: Chronic (4) Antisocial behavior: Status: Chronic DS: Medications Discharge Medications Home Medications: Home Medications Medication Instructions Recorded Confirmed No Known Home Meds 02/10/21 02/10/21 Mental Status Exam Mental Status Exam Narrative: Pt is alert and oriented; behavior is defensive in general though can be friendly and calm when wants to; patient is not in distress; dressed in casual attire and well groomed; mood is described as good and affect either congruent or irritable; eye contact appropriate; Speech is normal rate, volume and prosody and not pressured;? psychomotor agitation intermittently present; thought process is organized, linear, logical and goal directed. Thought content is on discharge; otherwise TC relevant to pertinent topics and without any delusional content, paranoid ideations or grandiosity; denies any SI/HI. There is no evidence of perceptual disturbance. ?Patients insight and judgment are impaired but at baseline. Data Data Completed and Pending Completed studies during hospitalization [Text1]: 02/10/21 02/10/21 02/10/21 06:11 06:11 06:11 WBC RBC Hgb Hct MCV MCH MCHC RDW Plt Count MPV Immature Gran % (Auto) Neut % (Auto) Lymph % (Auto) [place] % (Auto) Eos % (Auto) Baso % (Auto) Lymph # (Auto) [place] # (Auto) Eos # (Auto) Baso # (Auto) Abs Immat Gran (auto) Absolute Neuts (auto) Absolute Nucleated RBC Nucleated RBC % (auto) Sodium Potassium Chloride Carbon Dioxide Anion Gap BUN Creatinine Estim Creat Clear Calc Estimated GFR Random Glucose Calcium Magnesium Total Bilirubin Direct Bilirubin AST ALT Alkaline Phosphatase Total Protein Albumin Urine Color YELLOW Urine Appearance CLEAR Urine pH 6.0 Ur Specific [place] <= 1.005 Urine Protein NEG Urine Glucose (UA) NEG Urine Ketones NEG Urine Blood 1+ H Urine Nitrite NEG Ur Leukocyte Esterase 1+ H Urine RBC 1-4 Urine WBC 1-4 Ur Squamous Epith Cells 1+ Urine Bacteria 1+ Urine Test NEGATIVE Urine Opiates Screen Urine Fentanyl Screen Ur Barbiturates Screen Ur Phencyclidine Scrn Ur Amphetamines Screen U Benzodiazepines Scrn Urine Cocaine Screen U Marijuana (THC) Screen Ethyl Alcohol COVID-19 (GINA) Negative COVID-19 Clin Com See Note 02/10/21 02/10/21 02/10/21 06:11 12:45 12:45 WBC 15.5 H RBC 4.61 Hgb 13.7 Hct 40.8 MCV 88.5 MCH 29.7 MCHC 33.6 RDW 14.7 Plt Count 348 MPV 10.4 Immature Gran % (Auto) 0.3 Neut % (Auto) 62.6 Lymph % (Auto) 27.7 [place] % (Auto) 6.5 Eos % (Auto) 2.3 Baso % (Auto) 0.6 Lymph # (Auto) 4.3 [place] # (Auto) 1.0 Eos # (Auto) 0.4 Baso # (Auto) 0.1 Abs Immat Gran (auto) 0.05 H Absolute Neuts (auto) 9.7 H Absolute Nucleated RBC 0.000 Nucleated RBC % (auto) 0.0 Sodium 138 Potassium 4.4 Chloride 104 Carbon Dioxide 25 Anion Gap 13 BUN 7 L Creatinine 0.91 Estim Creat Clear Calc 90.9 Estimated GFR > 60 Random Glucose 90 Calcium 9.7 Magnesium 2.1 Total Bilirubin 0.6 Direct Bilirubin 0.3 AST 15 D ALT 12 Alkaline Phosphatase 88 Total Protein 7.8 Albumin 4.5 Urine Color Urine Appearance Urine pH Ur Specific [place] Urine Protein Urine Glucose (UA) Urine Ketones Urine Blood Urine Nitrite Ur Leukocyte Esterase Urine RBC Urine WBC Ur Squamous Epith Cells Urine Bacteria Urine Test Urine Opiates Screen Not Detected Urine Fentanyl Screen Not Detected Ur Barbiturates Screen Not Detected Ur Phencyclidine Scrn Not Detected Ur Amphetamines Screen Not Detected U Benzodiazepines Scrn Not Detected Urine Cocaine Screen POSITIVE H U Marijuana (THC) Screen Not Detected Ethyl Alcohol COVID-19 (GINA) COVID-19 Clin Com 02/10/21 12:45 WBC RBC Hgb Hct MCV MCH MCHC RDW Plt Count MPV Immature Gran % (Auto) Neut % (Auto) Lymph % (Auto) [place] % (Auto) Eos % (Auto) Baso % (Auto) Lymph # (Auto) [place] # (Auto) Eos # (Auto) Baso # (Auto) Abs Immat Gran (auto) Absolute Neuts (auto) Absolute Nucleated RBC Nucleated RBC % (auto) Sodium Potassium Chloride Carbon Dioxide Anion Gap BUN Creatinine Estim Creat Clear Calc Estimated GFR Random Glucose Calcium Magnesium Total Bilirubin Direct Bilirubin AST ALT Alkaline Phosphatase Total Protein Albumin Urine Color Urine Appearance Urine pH Ur Specific [place] Urine Protein Urine Glucose (UA) Urine Ketones Urine Blood Urine Nitrite Ur Leukocyte Esterase Urine RBC Urine WBC Ur Squamous Epith Cells Urine Bacteria Urine Test Urine Opiates Screen Urine Fentanyl Screen Ur Barbiturates Screen Ur Phencyclidine Scrn Ur Amphetamines Screen U Benzodiazepines Scrn Urine Cocaine Screen U Marijuana (THC) Screen Ethyl Alcohol < 10 COVID-19 (GINA) COVID-19 Clin Com 02/10/21 Unknown Urine clean catch - Urine barrios top Urine Culture - Final DS: Summary Hospital Course Hospital Course: 25 y.o. Female who carries a diagnosis of bipolar disorder, polysubstance use, and alcohol use disorder. She presented to [facility] [place] HI and SI saying she attempted to OD. On admission, patient was irritable and intermittently be belligerent towards peers and staff and told a peer not to sit next to her or risk getting slapped. Patient recognized inspector automatic typewriter from last admission on approach and at 1st said that she should slap the shit out of [inspector automatic typewriter] for discharging [her] until inspector automatic typewriter reminded her that she wanted discharge to which she said oh yeah your right and gave inspector automatic typewriter a fist bump. Patient signed a CV on admission but soon signed a 3 day notice saying she wanted discharge. She denied any SI, HI or AVH. She said she did not want any medication including Depakote; inspector automatic typewriter explained she liked it the last time she was here to which she replied I did not even go fill that script at the pharmacy. She said she drinks alcohol daily but would not say how much and denied having any withdrawal symptoms; she was willing to and did except a 1 time dose of Ativan and gabapentin, but overall felt it unnecessary. She said she would go to detox if she needed/wanted to. said she wanted to discharge saying that she would find a place to stay at a nursing home. Absorption Plant Operator asked about the suicidal and homicidal comments she made in the ED. At this, patient chuckled and said it's not true...I needed a place to sleep last night... so she lied about having SI in order to get a bed. She says there's no way she would ever hurt herself and denies any SI; she denies HI other than and self-defense. Patient was well groomed, with neatly braided hair, wearing appropriate casual clothes. Her speech was organized, linear and logical. Although patient is easily triggered and defensive (told cleaning woman to get F out of her room), her behaviors are organized and she's able to interact in a calm, appropriate way when she wants to, which she did with both inspector automatic typewriter and social media community manager. Patient is asking for discharge. She does not want treatment. She is fully alert and oriented. She admits to malingering, fabricating SI in order to get a place to sleep last night and is now requesting discharge so she can go to a nursing home which she prefers. She denies any SI or HI. She denies depression. She may or may not be in alcohol withdrawal but talks about going to a detox if need be. Patient has clear antisocial behaviors which she also exhibited during her recent admission last month, when she stole another patients shoes; when confronted by staff, she returned the shoes but gave a verbal threat to the general milue if anyone entered her room to reciprocate. At that time patient was on the verge of being administratively discharged. Currently, Patient is not in imminent risk for harm to self or others and does not meet criteria for involuntary commitment. Given her behaviors and disinterest in treatment, her request for discharge honored. Absorption Plant Operator discussed case with team and DION Lozano who agreed that patient was appropriate for discharge. YAO Dick agreed as well. Status at Discharge Functional status at discharge: independent ambulation Overall status at discharge: patient is progressing back to baseline (or at baseline) Time Spent with Patient Time attestation: Total time spent providing and/or coordinating discharge services: Discharge Plan Discharge Patient Disposition: [facility] Discharge Diagnosis: Bipolar disorder, unspecified Referrals: Physician,Unknown J [Primary Care Provider] - 1 Week Discharge Medications: No Action No Known Home Meds RF: 0 Discharge Orders: Discharge Order (Routine); Ordered 02/11/21 Ordered By: Obed Oropeza Diet: regular diet Activity on Discharge: As tolerated Stand Alone Forms: Patient Portal Discharge page, Community Support Care Plan Goals: Maintain mood and safe behaviors Pursue sobriety Practice coping skills Continue with outpatient provider and reach out to them as needed Health Concerns: Mood stability and behaviors Sobriety Plan of Treatment: pursue sobriety Maintain safe behaviors Assessment: Risk assessment at time of discharge: Patient was interviewed prior to discharge and found to be fully oriented and without any SI or HI. Patient is not in imminent risk of harm to self or others and has a safety plan that includes presenting to the closest ER or calling 911 if feeling unsafe. Discharge Date/Time: 02/11/21 13:41
== END 2021-02-11 13:41 | disposition home or self-care (01) | DRG 753 ==
LOC: HO.ED 20:10 → HO.PM5 21:59
PROVIDERS: Physician Assistant; Admitting Provider Psychiatry & Neurology Psychiatry; Emergency Provider Emergency Medicine; Visit Provider Psychiatry & Neurology Psychiatry
DX: F31.9 Bipolar disorder, unspecified (principal); R45.851 Suicidal ideations; F10.20 Alcohol dependence, uncomplicated; F14.10 Cocaine abuse, uncomplicated; J45.909 Unspecified asthma, uncomplicated; Z20.822 Contact with and (suspected) exposure to COVID-19; Z88.6 Allergy status to analgesic agent; Z72.811 Adult antisocial behavior
CPT/HCPCS: 36415; 80048; 80076; 80307; 81001; 81025; 82077; 83735; 85025; 87086; 87635; 93005; 99285

== ENCOUNTER 2021-02-13 13:24 | Emergency (ER) | payer OTHER, SELFPAY ==
--- NOTE | 2021-02-13 14:01 | PC.NURSE ---
PT DISRUPTIVE IN WR. GETTING IN OTHER PT'S FACES. SWEARING. LEFT AFTER THIS OCCURED
== END 2021-02-13 14:27 | disposition left against medical advice (07) ==
PROVIDERS: Emergency Provider Emergency Medicine
DX: Z04.9 Encounter for examination and observation for unspecified reason (principal)

== ENCOUNTER 2021-02-13 16:49 | Emergency (ER) | payer OTHER, SELFPAY ==
--- NOTE | 2021-02-13 17:07 | ED.PSYCH ---
HPI - Psych General Chief Complaint: ETOH/Substance Use Stated Complaint: Crisis Time Seen by Provider: 02/13/21 17:06 Source: patient and old records reviewed Mode of arrival: ambulatory Limitations: other (intoxicated and agitated) History of Present Illness MD complaint: suicidal ideation, feels depressed and substance abuse Onset (ago): week(s) Duration: constant History of same: Yes Relieving factors: none Exacerbating factors: alcohol Context: recent alcohol abuse and not taking psychiatric medications Associated psychiatric symptoms: depression and suicidal ideation Associated symptoms: denies other symptoms Treatments prior to arrival: none Related Data Home Medications Medication Instructions Recorded Confirmed albuterol sulfate 90 mcg/actuation 2 puff INHALATION QID PRN 02/13/21 02/13/21 aerosol inhaler hydroxyzine pamoate 50 mg capsule 1 cap PO TID 02/13/21 02/13/21 Allergies Allergy/AdvReac Type Severity Reaction Status Date / Time bee pollen [BEE STINGS] Allergy Unknown swelling Verified 08/10/20 22:22 ibuprofen [From MOTRIN] Allergy Unknown FACIAL Verified 08/10/20 22:22 SWELLING Review of Systems Review of Systems: ROS unable to be obtained due to being uncooperative [facility] Past Medical History Attestation statement: The following information was validated with the patient. Medical History Antisocial behavior Asthma Bipolar disorder, unspecified Depression Malingering Substance abuse Social History Social History Household Members: None Housing: Homeless Do you presently have visiting nurse or other home services: No Unable to assess alcohol history related to: Refusing to respond Alcohol intake: current Alcohol intake frequency: 0-2 drinks per day Alcohol type: hard liquor Patient Tobacco Use Status: Never used Tobacco Tobacco use type: Cigarette Cigarette Packs Per Day: 0.5 Cigarettes Per Day: 10.0 e-Cigarette/Vaping Use: Never Used Second Hand Smoke Exposure: No Substance Use Type: Crack/Cocaine Advance Directives: No Advance Directives Information Provided: Yes Patient : No service: No Sexual orientation: Did not discuss Physical Exam Vital Signs: Vital Signs: Last Vital Signs Pulse 98 02/13/21 17:15 Resp 16 02/13/21 17:15 BP 135/81 02/13/21 17:15 Pulse Ox 98 02/13/21 17:15 Body Mass Index 32.0 Appearance: Alert. Oriented X3. No acute distress. Slurred speech, laughing then angry at times Eyes: Pupils equal, round and reactive to light. ENT: Pharynx normal. Neck: Normal inspection. Neck supple. CVS: Normal heart rate and rhythm. Pulses normal. Respiratory: No respiratory distress. Abdomen: Soft and non-tender. Skin: Skin warm and dry. Normal skin color. Extremities: No lower extremity edema. Neuro: Oriented X 3. No motor deficit. No sensory deficit. CN2-12 limited but intact Psych: agitated, laughing then hostile Course Course Course Narrative: signed out for re-evaluation in the morning pending CARE team Physician observation started at 859pm. Patient placed in physician observation because the patient needed more time for repeat crisis assessment. At the time observation was started the patient's vitals were stable, patient is alert and oriented but slightly agitated at times, Neuro: nonfocal, CV RRR, Lungs clear MDM - Psych MDM Narrative Medical decision making narrative: 25 yo female with substance abuse and mental health issues comes in requesting crisis and help with her drinking - at this time will need labs, BHN consult. Lab Data Result diagrams: 02/13/21 19:48 02/13/21 19:48 Labs: Lab Results 02/13/21 02/13/21 02/13/21 Range/Units 17:25 19:11 19:12 WBC (4.8-10.8) X10*3/uL RBC (4.20-5.50) X10*6/uL Hgb (12.0-16.0) g/dl Hct (37-47) % MCV (80-98) fL MCH (27.0-33.0) pg MCHC (31.0-35.0) g/dl RDW (11.0-16.0) % Plt Count (160-400) X10*3/uL MPV (9.4-12.3) fL Immature Gran % (Auto) (0.0-0.4) % Neut % (Auto) (45-73) % Lymph % (Auto) (20-40) % [place] % (Auto) (2-11) % Eos % (Auto) (0-4) % Baso % (Auto) (0-2) % Lymph # (Auto) (1.2-4.9) X10*3/uL [place] # (Auto) (0.1-1.2) X10*3/uL Eos # (Auto) (0.0-0.4) X10*3/uL Baso # (Auto) (0.0-0.2) X10*3/uL Abs Immat Gran (auto) (0.00-0.03) X10*3/uL Absolute Neuts (auto) (2.0-8.3) X10*3/uL Absolute Nucleated RBC (0.0-0.012) X10*3/uL Nucleated RBC % (auto) (0.0-0.2) /100WBC Sodium (135-145) mmol/L Potassium (3.3-5.1) mmol/L Chloride (96-108) mmol/L Carbon Dioxide (22-29) mmol/L Anion Gap (12-20) BUN (9-16) mg/dL Creatinine (0.5-1.4) mg/dL Estim Creat Clear Calc Estimated GFR Random Glucose (60-115) mg/dL Calcium (8.4-10.2) mg/dL Total Bilirubin (0.0-1.0) mg/dL Direct Bilirubin (0.0-0.5) mg/dL AST (5-31) U/L ALT (0-31) U/L Alkaline Phosphatase (39-117) U/L Total Protein (6.5-8.0) g/dL Albumin (3.5-5.0) g/dL Urine Test NEGATIVE (NEGATIVE) Urine Opiates Screen Not Detected (Not Detect) Urine Fentanyl Screen Not Detected (Not Detect) Ur Barbiturates Screen Not Detected (Not Detect) Ur Phencyclidine Scrn Not Detected (Not Detect) Ur Amphetamines Screen Not Detected (Not Detect) U Benzodiazepines Scrn Not Detected (Not Detect) Urine Cocaine Screen POSITIVE H (Not Detect) U Marijuana (THC) Screen POSITIVE H (Not Detect) Ethyl Alcohol mg/dL COVID-19 (GINA) Negative (Negative) COVID-19 Clin Com See Note 02/13/21 02/13/21 02/13/21 Range/Units 19:48 19:48 19:48 WBC 11.3 H (4.8-10.8) X10*3/uL RBC 4.21 (4.20-5.50) X10*6/uL Hgb 12.5 (12.0-16.0) g/dl Hct 37.0 (37-47) % MCV 87.9 (80-98) fL MCH 29.7 (27.0-33.0) pg MCHC 33.8 (31.0-35.0) g/dl RDW 15.0 (11.0-16.0) % Plt Count 313 (160-400) X10*3/uL MPV 10.3 (9.4-12.3) fL Immature Gran % (Auto) 0.4 (0.0-0.4) % Neut % (Auto) 47.5 (45-73) % Lymph % (Auto) 41.6 H (20-40) % [place] % (Auto) 6.5 (2-11) % Eos % (Auto) 3.4 (0-4) % Baso % (Auto) 0.6 (0-2) % Lymph # (Auto) 4.7 (1.2-4.9) X10*3/uL [place] # (Auto) 0.7 (0.1-1.2) X10*3/uL Eos # (Auto) 0.4 (0.0-0.4) X10*3/uL Baso # (Auto) 0.1 (0.0-0.2) X10*3/uL Abs Immat Gran (auto) 0.04 H (0.00-0.03) X10*3/uL Absolute Neuts (auto) 5.4 (2.0-8.3) X10*3/uL Absolute Nucleated RBC 0.000 (0.0-0.012) X10*3/uL Nucleated RBC % (auto) 0.0 (0.0-0.2) /100WBC Sodium 142 (135-145) mmol/L Potassium 4.1 (3.3-5.1) mmol/L Chloride 111 H (96-108) mmol/L Carbon Dioxide 22 (22-29) mmol/L Anion Gap 13 (12-20) BUN 9 (9-16) mg/dL Creatinine 0.97 (0.5-1.4) mg/dL Estim Creat Clear Calc 98.4 Estimated GFR > 60 Random Glucose 117 H (60-115) mg/dL Calcium 9.1 D (8.4-10.2) mg/dL Total Bilirubin 0.3 (0.0-1.0) mg/dL Direct Bilirubin < 0.2 (0.0-0.5) mg/dL AST 16 (5-31) U/L ALT 13 (0-31) U/L Alkaline Phosphatase 72 (39-117) U/L Total Protein 7.2 (6.5-8.0) g/dL Albumin 4.3 (3.5-5.0) g/dL Urine Test (NEGATIVE) Urine Opiates Screen (Not Detect) Urine Fentanyl Screen (Not Detect) Ur Barbiturates Screen (Not Detect) Ur Phencyclidine Scrn (Not Detect) Ur Amphetamines Screen (Not Detect) U Benzodiazepines Scrn (Not Detect) Urine Cocaine Screen (Not Detect) U Marijuana (THC) Screen (Not Detect) Ethyl Alcohol 147 mg/dL COVID-19 (GINA) (Negative) COVID-19 Clin Com Discharge Plan Discharge Clinical Impression: Alcohol use disorder, moderate, dependence, Cocaine use disorder Instructions: Abuse of Alcohol (ED), Cocaine Abuse (ED) Prescriptions: No Action albuterol sulfate 90 mcg/actuation Hfa Aerosol Inhaler 2 puff INHALATION QID PRN (Reason: Wheezing) RF: 0 hydroxyzine pamoate 50 mg capsule 1 cap PO TID RF: 0
[2021-02-13 17:15] VITALS: BP 135/81; PULSE 98; RESP 16; O2SAT 98; BMI 32.0
[2021-02-13 18:03] LABS: COVID-19 Test Negative (Negative); IDNOW Serial# 9DD0AD1C
--- NOTE | 2021-02-13 19:33 | PC.NURSE ---
Patient refuse Blood work
[2021-02-13 19:36] LABS: UPreg QC Valid YES; Urine Pregnancy NEGATIVE (NEGATIVE)
[2021-02-13 19:48] LABS: Amphetamine Screen Urine Not Detected (Not Detect); Barbiturates, Urine Not Detected (Not Detect); Benzodiazepines Screen Urine Not Detected (Not Detect); Cannabinoid Screen Urine POSITIVE (Not Detect); Cocaine Screen Urine POSITIVE (Not Detect); Fentanyl, urine Not Detected (Not Detect); Opiate Screen Urine Not Detected (Not Detect); Phencyclidine Screen Urine Not Detected (Not Detect)
[2021-02-13 19:54] LABS: MANUAL DIFF FLAG NO
[2021-02-13 19:56] LABS: Basophils Absolute Auto 0.1 X10*3/uL (0.0-0.2); Basophils Percent Auto 0.6 % (0-2); Eosinophils Absolute Auto 0.4 X10*3/uL (0.0-0.4); Eosinophils Percent Auto 3.4 % (0-4); Hemoglobin 12.5 g/dl (12.0-16.0); Imm Gran Abs Auto 0.04 X10*3/uL (0.00-0.03); Imm Gran Pct Auto 0.4 % (0.0-0.4); Lymphocytes Absolute Auto 4.7 X10*3/uL (1.2-4.9); Lymphocytes Percent Auto 41.6 % (20-40); Mean Corpuscular HGB Conc 33.8 g/dl (31.0-35.0); Mean Corpuscular Hemoglobin 29.7 pg (27.0-33.0); Mean Corpuscular Volume 87.9 fL (80-98); Mean Platelet Volume 10.3 fL (9.4-12.3); Monocytes Absolute Auto 0.7 X10*3/uL (0.1-1.2); Monocytes Percent Auto 6.5 % (2-11); Neutrophils Absolute Auto 5.4 X10*3/uL (2.0-8.3); Neutrophils Percent Auto 47.5 % (45-73); Platelet Count 313 X10*3/uL (160-400); Red Blood Count 4.21 X10*6/uL (4.20-5.50); White Blood Count 11.3 X10*3/uL (4.8-10.8)
[2021-02-13 20:11] LABS: Alanine Aminotransferase 13 U/L (0-31); Albumin Level 4.3 g/dL (3.5-5.0); Alkaline Phosphatase 72 U/L (39-117); Anion Gap 13 (12-20); Aspartate Amino Transferase 16 U/L (5-31); Bilirubin Direct < 0.2 mg/dL (0.0-0.5); Bilirubin Total 0.3 mg/dL (0.0-1.0); Blood Urea Nitrogen 9 mg/dL (9-16); Calcium 9.1 mg/dL (8.4-10.2); Carbon Dioxide 22 mmol/L (22-29); Chloride 111 mmol/L (96-108); Creatinine Clr Calc Pharmacy 98.4; Estimated Glomerular Filt Rate > 60; Glucose Random 117 mg/dL (60-115); Potassium 4.1 mmol/L (3.3-5.1); Sodium 142 mmol/L (135-145); Total Protein 7.2 g/dL (6.5-8.0)
[2021-02-13 20:26] LABS: Ethanol 147 mg/dL
--- NOTE | 2021-02-13 21:27 | MHC.CARE ---
[facility] unable to provide a clinician to see this pt so CARE Team took over the case. CARE Team met with pt in the common area of the pod. Pt declined offer to move to her room in the pod for privacy. Pt was dressed in hospital attire wrapped in a blanket sitting on a chair in the pod. Pt was appeared groggy, but was oriented x4. Pt reported mood as very depressed and very anxious before asking for the definition of anxious. Pt smiled and laughed throughout the assessment incongruent with her stated mood. Eye contact was intense at times. Speech was sometimes slow, mostly pressured. Pt denied being able to sleep and she seemed tired. Pt denied AVH. Pt endorsed SI with the plan to be shot or stabbed with a knife. Pt stated that she would hurt herself or other people if she was discharged. Pt denied HI. Pt's concentration and insight were poor. Impulse control and judgment were impaired. Tox screen was positive for ETOH, cocaine, and marijuana. Pt reported that the substance use was not the problem, stating I've got some screws loose and laughing. Per pt's chart, pt was discharged from on Monday because pt demanded to leave and denied any SI/HI/. The plan is for CARE Team to reassess pt in the morning to determine appropriate disposition for this pt. This plan was discussed with and agreed upon by ED physician, Dr. Zamarripa, and CARE clinical care coordinator, BENEDICTO Valdez.
[2021-02-14 00:50] VITALS: BP 147/78; PULSE 97; O2SAT 95
--- NOTE | 2021-02-14 05:05 | PC.NURSE ---
Patient slept through the night, no distress observed/reported, behavior appropriate, patient is currently not on any medication, asymptomatic of withdrawal, patient got seen by care team, no disposition at this time, patient will be assessed by care team in the morning as F/U, VSS, will continue to monitor.
--- NOTE | 2021-02-14 06:57 | PC.NURSE ---
patient appears to remain asleep at present, patient appears in no distress, respirations are even and unlabored.
--- NOTE | 2021-02-14 09:09 | MHC.CARE ---
CARE Team met with Pt today who currently reports passive SI, denies plan intent or means. Pt denies history of suicide attempts or gestures. Pt stated What do I need to say to stay here . CARE Team and Pt discussed her recent presentations to the ED and admission to [facility]. Pt reports she has not followed up with treatment recommendations post discahrged. Pt reports she is currently experiencing homelessness. Pt reports on going alcohol use denies cocaine or marijuana use despite tox being positive. CARE Team discussed recovery resources and supports Pt reiterated she doesn't use like that . Per discharge on 02/11 Pt carries a diagnosis of Bipolar Disorder, unspecified , Antisocial Behavior, Cocaine Use Disorder, Alcohol Use Disorder and Opioid Use Disorder and Malingering. Pt presents as low risk and plan for Pt to be discharged to follow up with substance use support in community and treatment recommendations from her discharged on [facility] on 02/11. Pt encouraged to utilize crisis if needed. CARE Team case consulted with Dr. Oropeza who is in agreement with plan of care.
== END 2021-02-14 13:33 | disposition home or self-care (01) ==
PROVIDERS: Emergency Medicine; Emergency Provider Emergency Medicine
DX: F33.1 Major depressive disorder, recurrent, moderate (principal); R45.851 Suicidal ideations; F14.10 Cocaine abuse, uncomplicated; F17.210 Nicotine dependence, cigarettes, uncomplicated; Z71.6 Tobacco abuse counseling; F10.20 Alcohol dependence, uncomplicated; Y90.6 Blood alcohol level of 120-199 mg/100 ml; Z20.822 Contact with and (suspected) exposure to COVID-19; Z79.899 Other long term (current) drug therapy
CPT/HCPCS: 36415; 80048; 80076; 80307; 81025; 82077; 85025; 87635; 99284

== ENCOUNTER 2022-07-11 00:46 | Inpatient (IN) | payer OTHER, SELFPAY ==
[2022-07-11] VITALS (7 sets, daily range): BP systolic 110–135; BP diastolic 54–88; PULSE 90–98; RESP 11–18; TEMP 34.4–36.9; O2SAT 92–98; BMI 28.0
--- NOTE | 2022-07-11 | ECG_ITS ---
Test Reason : OD Blood Pressure : / mmHG Vent. Rate : 086 BPM Atrial Rate : 086 BPM P-R Int : 158 ms QRS Dur : 086 ms QT Int : 392 ms P-R-T Axes : 066 068 044 degrees QTc Int : 469 ms Normal sinus rhythm Normal ECG When compared with ECG of 10-FEB-2021 20:40, No significant change was found Referred By: Generic ED Physician Electronically Signed By:ANABELL YANES
--- NOTE | ~2022-07-11 | XR_ITS ---
EXAMINATION: XR CHEST CLINICAL INFORMATION: Hypoxemia COMPARISON: 01/08/2021 TECHNIQUE: Frontal view of the chest was obtained. FINDINGS: Lung volumes are symmetric. No focal consolidation is seen. No evidence of pneumothorax, pleural effusion, or pulmonary edema. The cardiomediastinal contour is unremarkable. No acute osseous findings are seen. XR/XR chest 1V IMPRESSION: No acute cardiopulmonary findings.
--- NOTE | 2022-07-11 01:11 | PC.NURSE ---
home service demonstrator, belongings in decon by security Core temp 93.9, bare hugger to be applied.
[2022-07-11 01:13] LABS: Basophils Absolute Auto 0.1 X10*3/uL (0.0-0.2); Basophils Percent Auto 0.6 % (0-2); Eosinophils Absolute Auto 0.4 X10*3/uL (0.0-0.4); Eosinophils Percent Auto 2.6 % (0-4); Hematocrit 38.8 % (37.0-47.0); Hemoglobin 12.3 g/dl (12.0-16.0); Imm Gran Abs Auto 0.21 X10*3/uL (0.00-0.03); Imm Gran Pct Auto 1.5 % (0.0-0.4); Lymphocytes Absolute Auto 5.4 X10*3/uL (1.2-4.9); Lymphocytes Percent Auto 38.5 % (20-40); MANUAL DIFF FLAG SCAN; Mean Corpuscular HGB Conc 31.7 g/dl (31.0-35.0); Mean Corpuscular Hemoglobin 29.3 pg (27.0-33.0); Mean Corpuscular Volume 92.4 fL (80.0-98.0); Mean Platelet Volume 9.9 fL (9.4-12.3); Monocytes Absolute Auto 0.8 X10*3/uL (0.1-1.2); Monocytes Percent Auto 5.6 % (2-11); Neutrophils Absolute Auto 7.2 x10*3/uL (2.0-8.3); Neutrophils Percent Auto 51.2 % (45-73); Platelet Count 401 X10*3/uL (160-400); Red Cell Distribution Width 14.1 % (11.0-16.0); SCAN SMEAR FLAG 1
--- NOTE | 2022-07-11 01:18 | ED_ITS ---
HPI - Overdose General Chief Complaint: Overdose Stated Complaint: overdose Time Seen by Provider: 07/11/22 00:59 Source: EMS Mode of arrival: EMS History of Present Illness HPI Narrative: 27-year-old female, unable to give history at this time, on review of documentation patient apparently has a history substance use disorder, bipolar and alcohol use disorder. As per EMS she was found unresponsive outside, suspected heroin overdose and received 8 mg of Narcan intranasally. Related Data Home Medications Medication Instructions Recorded Confirmed albuterol sulfate 90 mcg/actuation 2 puff inhalation QID PRN Wheezing 02/13/21 02/13/21 aerosol inhaler hydroxyzine pamoate 50 mg capsule 1 cap PO TID 02/13/21 02/13/21 Allergies Allergy/AdvReac Type Severity Reaction Status Date / Time bee pollen [BEE STINGS] Allergy Unknown swelling Verified 08/10/20 22:22 ibuprofen [From MOTRIN] Allergy Unknown FACIAL Verified 08/10/20 22:22 SWELLING Review of Systems Review of Systems: Yes Unobtainable due to mental condition PMFSH Past Medical History Source: nursing notes reviewed Medical History Antisocial behavior Asthma Bipolar disorder, unspecified Depression Malingering Substance abuse Social History Social History Household Members: None Housing: Homeless Do you presently have visiting nurse or other home services: No Unable to assess alcohol history related to: Refusing to respond Alcohol intake: current Alcohol intake frequency: 0-2 drinks per day Alcohol type: hard liquor Patient Tobacco Use Status: Never used Tobacco Tobacco use type: Cigarette Cigarette Packs Per Day: 0.5 Cigarettes Per Day: 10.0 e-Cigarette/Vaping Use: Never Used Second Hand Smoke Exposure: No Substance Use Type: Crack/Cocaine Advance Directives: No service: No Sexual orientation: Did not discuss Physical Exam Vital Signs: Vital Signs: Last Vital Signs Temp 95.6 F L 07/11/22 03:16 Pulse 92 07/11/22 03:16 Resp 14 07/11/22 03:16 BP 130/74 07/11/22 03:16 Pulse Ox 98 07/11/22 03:16 O2 Del Method 07/11/22 03:16 O2 Flow Rate 3 07/11/22 03:16 BMI result Body Mass Index 28.0 VITAL SIGNS: Reviewed. GENERAL: Well developed, well nourished, in no acute distress. HEAD: Normocephalic/atraumatic EYES: PERRLA, EOMI EARS: Ext canals without abnormality NOSE: Nares patent bilateral OROPHARYNX: no oral lesions noted, posterior pharynx clear NECK: Supple, no adenopathy LUNGS: Normal breath sounds. No adventitious sounds or accessory muscle use. SpO2<> 2 L nasal cannula with capnography and place CARDIOVASCULAR: Regular rate and rhythm without noted murmurs ABDOMEN: Soft, non-tender, non-distended with bowel sounds. MUSCULOSKELETAL: No tenderness, deformities, or effusions noted on gross inspection. EXTREMITIES: No cyanosis, clubbing or edema. SKIN: Inspection of the skin reveals no rashes, tactile coldness NEUROLOGIC: GCS-7 Medications Administered Discontinued Medications Generic Name Dose Route Start Last Admin Trade Name Freq PRN Reason Stop Dose Admin Lactated Ringer's 2,000 mls @ 999 mls/hr 07/11/22 01:45 07/11/22 05:13 Lr IV 07/11/22 03:45 Infused .Q2H1M [facility] Infusion Procedures EJ/Peripheral Line Arm R: Time Out Performed: No Skin Cleansed in Sterile Fashion: Yes Size (gauge): 18 IV Secured and Dressing Applied: Yes Patient Tolerated Procedure: well Additional Comments: This was placed via ultrasound guidance Medical Decision Making Medical Decision Making MDM Narrative: This is a 27-year-old female who is brought in by EMS with a GCS of 7 but prote cting her airway, hypothermic with spontaneous respirations. Leanntodd Laughlin put in place, labs will be drawn to include toxicology. Review of all investigations my interpretation is patient is in acute toxic acidosis secondary to hypoxic episode due to drug use. There is also a corresponding ELENA that is likely related to this. Patient will be IV fluid resuscitated with 2 L and will repeat BMP. There is a lactic acidosis that again is contributing to the metabolic acidosis and due to patient's known hypoxia secondary to drug use. The lactic acidosis and leukocytosis are secondary to hypoxia from being unresponsive due to drug use, NOT infectious etiology. Differential Diagnosis Please see the discussion above Consult Healthcare Provider Management of the patient was discussed with: Hospitalist Hospitalist has accepted admission Lab Data Please see the discussion above 07/11/22 01:00 07/11/22 01:00 Labs: Lab Results 07/11/22 07/11/22 07/11/22 Range/Units 01:00 01:00 01:00 WBC 14.0 H (4.8-10.8) X10*3/uL RBC 4.20 (4.20-5.50) X10*6/uL Hgb 12.3 (12.0-16.0) g/dl Hct 38.8 (37.0-47.0) % MCV 92.4 (80.0-98.0) fL MCH 29.3 (27.0-33.0) pg MCHC 31.7 (31.0-35.0) g/dl RDW 14.1 (11.0-16.0) % Plt Count 401 H (160-400) X10*3/uL MPV 9.9 (9.4-12.3) fL Immature Gran % (Auto) 1.5 H (0.0-0.4) % Neut % (Auto) 51.2 (45-73) % Lymph % (Auto) 38.5 (20-40) % [place] % (Auto) 5.6 (2-11) % Eos % (Auto) 2.6 (0-4) % Baso % (Auto) 0.6 (0-2) % Lymph # (Auto) 5.4 H (1.2-4.9) X10*3/uL [place] # (Auto) 0.8 (0.1-1.2) X10*3/uL Eos # (Auto) 0.4 (0.0-0.4) X10*3/uL Baso # (Auto) 0.1 (0.0-0.2) X10*3/uL Abs Immat Gran (auto) 0.21 H (0.00-0.03) X10*3/uL Absolute Neuts (auto) 7.2 (2.0-8.3) x10*3/uL Absolute Nucleated RBC 0.000 (0.0-0.012) X10*3/uL Nucleated RBC % (auto) 0.0 (0.0-0.2) /100WBC Smear Tech's Comments VERIFIED PT (10.0-13.1) SEC INR (0.9-1.1) VBG pH (7.32-7.43) VBG pCO2 mmHg VBG pO2 mmHg VBG HCO3 (22-26) mmol/L VBG O2 Saturation % VBG Base Excess mmol/L Sodium 139 (135-145) mmol/L Potassium 4.9 (3.3-5.1) mmol/L Chloride 106 (96-108) mmol/L Carbon Dioxide 14 L (22-29) mmol/L Anion Gap 24 H (12-20) BUN 11 (9-16) mg/dL Creatinine 1.44 H (0.5-1.4) mg/dL Estim Creat Clear Calc 52.6 Estimated GFR 43 POC Glucose (60-115) mg/dL Random Glucose 353 H* (60-115) mg/dL Lactic Acid (0.5-2.0) mmol/L Lactic Acid F/U @ 2Hr (0.5-2.0) mmol/L Calcium 9.2 (8.4-10.2) mg/dL Magnesium 2.7 H (1.6-2.6) mg/dL Total Bilirubin 0.3 (0.0-1.0) mg/dL AST 126 H (5-31) U/L ALT 42 H (0-31) U/L Alkaline Phosphatase 142 H (39-117) U/L Total Creatine Kinase (26-140) U/L Troponin I High Sens 3.7 (<3.5-17.0) ng/L Total Protein 7.7 (6.5-8.0) g/dL Albumin 4.5 (3.5-5.0) g/dL Urine Color Urine Appearance Urine pH (5.0-9.0) Ur Specific [place] (1.005-1.025) Urine Protein (Neg-Trace) mg/dL Urine Glucose (UA) (Negative) mg/dL Urine Ketones (Negative) mg/dL Urine Blood (Negative) Urine Nitrite (Negative) Ur Leukocyte Esterase (Negative) Urine RBC (0-2) /HPF Urine WBC (0-5) /HPF Ur Squamous Epith Cells (0-2) /HPF Urine Bacteria (None Seen) Hyaline Casts (0-2) /LPF Urine Opiates Screen (Not Detect) Urine Fentanyl Screen (Not Detect) Ur Barbiturates Screen (Not Detect) Ur Phencyclidine Scrn (Not Detect) Ur Amphetamines Screen (Not Detect) U Benzodiazepines Scrn (Not Detect) Urine Cocaine Screen (Not Detect) U Marijuana (THC) Screen (Not Detect) Ethyl Alcohol mg/dL COVID-19 (GINA) (Negative) COVID-19 Clin Com Influenza Type A (MARYLU) (Negative) Influenza Type B (MARYLU) (Negative) Influenza A & B Note 07/11/22 07/11/22 07/11/22 Range/Units 01:00 01:08 01:46 WBC (4.8-10.8) X10*3/uL RBC (4.20-5.50) X10*6/uL Hgb (12.0-16.0) g/dl Hct (37.0-47.0) % MCV (80.0-98.0) fL MCH (27.0-33.0) pg MCHC (31.0-35.0) g/dl RDW (11.0-16.0) % Plt Count (160-400) X10*3/uL MPV (9.4-12.3) fL Immature Gran % (Auto) (0.0-0.4) % Neut % (Auto) (45-73) % Lymph % (Auto) (20-40) % [place] % (Auto) (2-11) % Eos % (Auto) (0-4) % Baso % (Auto) (0-2) % Lymph # (Auto) (1.2-4.9) X10*3/uL [place] # (Auto) (0.1-1.2) X10*3/uL Eos # (Auto) (0.0-0.4) X10*3/uL Baso # (Auto) (0.0-0.2) X10*3/uL Abs Immat Gran (auto) (0.00-0.03) X10*3/uL Absolute Neuts (auto) (2.0-8.3) x10*3/uL Absolute Nucleated RBC (0.0-0.012) X10*3/uL Nucleated RBC % (auto) (0.0-0.2) /100WBC Smear Tech's Comments PT (10.0-13.1) SEC INR (0.9-1.1) VBG pH (7.32-7.43) VBG pCO2 mmHg VBG pO2 mmHg VBG HCO3 (22-26) mmol/L VBG O2 Saturation % VBG Base Excess mmol/L Sodium (135-145) mmol/L Potassium (3.3-5.1) mmol/L Chloride (96-108) mmol/L Carbon Dioxide (22-29) mmol/L Anion Gap (12-20) BUN (9-16) mg/dL Creatinine (0.5-1.4) mg/dL Estim Creat Clear Calc Estimated GFR POC Glucose 117 H 242 H (60-115) mg/dL Random Glucose (60-115) mg/dL Lactic Acid (0.5-2.0) mmol/L Lactic Acid F/U @ 2Hr (0.5-2.0) mmol/L Calcium (8.4-10.2) mg/dL Magnesium (1.6-2.6) mg/dL Total Bilirubin (0.0-1.0) mg/dL AST (5-31) U/L ALT (0-31) U/L Alkaline Phosphatase (39-117) U/L Total Creatine Kinase 86 (26-140) U/L Troponin I High Sens (<3.5-17.0) ng/L Total Protein (6.5-8.0) g/dL Albumin (3.5-5.0) g/dL Urine Color Urine Appearance Urine pH (5.0-9.0) Ur Specific [place] (1.005-1.025) Urine Protein (Neg-Trace) mg/dL Urine Glucose (UA) (Negative) mg/dL Urine Ketones (Negative) mg/dL Urine Blood (Negative) Urine Nitrite (Negative) Ur Leukocyte Esterase (Negative) Urine RBC (0-2) /HPF Urine WBC (0-5) /HPF Ur Squamous Epith Cells (0-2) /HPF Urine Bacteria (None Seen) Hyaline Casts (0-2) /LPF Urine Opiates Screen (Not Detect) Urine Fentanyl Screen (Not Detect) Ur Barbiturates Screen (Not Detect) Ur Phencyclidine Scrn (Not Detect) Ur Amphetamines Screen (Not Detect) U Benzodiazepines Scrn (Not Detect) Urine Cocaine Screen (Not Detect) U Marijuana (THC) Screen (Not Detect) Ethyl Alcohol 77 mg/dL COVID-19 (GINA) (Negative) COVID-19 Clin Com Influenza Type A (MARYLU) (Negative) Influenza Type B (MARYLU) (Negative) Influenza A & B Note 07/11/22 07/11/22 07/11/22 Range/Units 02:04 02:04 02:04 WBC (4.8-10.8) X10*3/uL RBC (4.20-5.50) X10*6/uL Hgb (12.0-16.0) g/dl Hct (37.0-47.0) % MCV (80.0-98.0) fL MCH (27.0-33.0) pg MCHC (31.0-35.0) g/dl RDW (11.0-16.0) % Plt Count (160-400) X10*3/uL MPV (9.4-12.3) fL Immature Gran % (Auto) (0.0-0.4) % Neut % (Auto) (45-73) % Lymph % (Auto) (20-40) % [place] % (Auto) (2-11) % Eos % (Auto) (0-4) % Baso % (Auto) (0-2) % Lymph # (Auto) (1.2-4.9) X10*3/uL [place] # (Auto) (0.1-1.2) X10*3/uL Eos # (Auto) (0.0-0.4) X10*3/uL Baso # (Auto) (0.0-0.2) X10*3/uL Abs Immat Gran (auto) (0.00-0.03) X10*3/uL Absolute Neuts (auto) (2.0-8.3) x10*3/uL Absolute Nucleated RBC (0.0-0.012) X10*3/uL Nucleated RBC % (auto) (0.0-0.2) /100WBC Smear Tech's Comments PT 10.4 (10.0-13.1) SEC INR 0.9 (0.9-1.1) VBG pH (7.32-7.43) VBG pCO2 mmHg VBG pO2 mmHg VBG HCO3 (22-26) mmol/L VBG O2 Saturation % VBG Base Excess mmol/L Sodium (135-145) mmol/L Potassium (3.3-5.1) mmol/L Chloride (96-108) mmol/L Carbon Dioxide (22-29) mmol/L Anion Gap (12-20) BUN (9-16) mg/dL Creatinine (0.5-1.4) mg/dL Estim Creat Clear Calc Estimated GFR POC Glucose (60-115) mg/dL Random Glucose (60-115) mg/dL Lactic Acid (0.5-2.0) mmol/L Lactic Acid F/U @ 2Hr (0.5-2.0) mmol/L Calcium (8.4-10.2) mg/dL Magnesium (1.6-2.6) mg/dL Total Bilirubin (0.0-1.0) mg/dL AST (5-31) U/L ALT (0-31) U/L Alkaline Phosphatase (39-117) U/L Total Creatine Kinase (26-140) U/L Troponin I High Sens (<3.5-17.0) ng/L Total Protein (6.5-8.0) g/dL Albumin (3.5-5.0) g/dL Urine Color Urine Appearance Urine pH (5.0-9.0) Ur Specific [place] (1.005-1.025) Urine Protein (Neg-Trace) mg/dL Urine Glucose (UA) (Negative) mg/dL Urine Ketones (Negative) mg/dL Urine Blood (Negative) Urine Nitrite (Negative) Ur Leukocyte Esterase (Negative) Urine RBC (0-2) /HPF Urine WBC (0-5) /HPF Ur Squamous Epith Cells (0-2) /HPF Urine Bacteria (None Seen) Hyaline Casts (0-2) /LPF Urine Opiates Screen (Not Detect) Urine Fentanyl Screen (Not Detect) Ur Barbiturates Screen (Not Detect) Ur Phencyclidine Scrn (Not Detect) Ur Amphetamines Screen (Not Detect) U Benzodiazepines Scrn (Not Detect) Urine Cocaine Screen (Not Detect) U Marijuana (THC) Screen (Not Detect) Ethyl Alcohol mg/dL COVID-19 (GINA) Negative (Negative) COVID-19 Clin Com See Note Influenza Type A (MARYLU) Negative (Negative) Influenza Type B (MARYLU) Negative (Negative) Influenza A & B Note See Note 03/06/23 03/06/23 03/06/23 Range/Units 02:04 04:14 04:14 WBC (4.8-10.8) X10*3/uL RBC (4.20-5.50) X10*6/uL Hgb (12.0-16.0) g/dl Hct (37.0-47.0) % MCV (80.0-98.0) fL MCH (27.0-33.0) pg MCHC (31.0-35.0) g/dl RDW (11.0-16.0) % Plt Count (160-400) X10*3/uL MPV (9.4-12.3) fL Immature Gran % (Auto) (0.0-0.4) % Neut % (Auto) (45-73) % Lymph % (Auto) (20-40) % [place] % (Auto) (2-11) % Eos % (Auto) (0-4) % Baso % (Auto) (0-2) % Lymph # (Auto) (1.2-4.9) X10*3/uL [place] # (Auto) (0.1-1.2) X10*3/uL Eos # (Auto) (0.0-0.4) X10*3/uL Baso # (Auto) (0.0-0.2) X10*3/uL Abs Immat Gran (auto) (0.00-0.03) X10*3/uL Absolute Neuts (auto) (2.0-8.3) x10*3/uL Absolute Nucleated RBC (0.0-0.012) X10*3/uL Nucleated RBC % (auto) (0.0-0.2) /100WBC Smear Tech's Comments PT (10.0-13.1) SEC INR (0.9-1.1) VBG pH (7.32-7.43) VBG pCO2 mmHg VBG pO2 mmHg VBG HCO3 (22-26) mmol/L VBG O2 Saturation % VBG Base Excess mmol/L Sodium (135-145) mmol/L Potassium (3.3-5.1) mmol/L Chloride (96-108) mmol/L Carbon Dioxide (22-29) mmol/L Anion Gap (12-20) BUN (9-16) mg/dL Creatinine (0.5-1.4) mg/dL Estim Creat Clear Calc Estimated GFR POC Glucose (60-115) mg/dL Random Glucose (60-115) mg/dL Lactic Acid 3.6 H* (0.5-2.0) mmol/L Lactic Acid F/U @ 2Hr (0.5-2.0) mmol/L Calcium (8.4-10.2) mg/dL Magnesium (1.6-2.6) mg/dL Total Bilirubin (0.0-1.0) mg/dL AST (5-31) U/L ALT (0-31) U/L Alkaline Phosphatase (39-117) U/L Total Creatine Kinase (26-140) U/L Troponin I High Sens (<3.5-17.0) ng/L Total Protein (6.5-8.0) g/dL Albumin (3.5-5.0) g/dL Urine Color Yellow Urine Appearance Clear Urine pH 5.5 (5.0-9.0) Ur Specific [place] 1.010 (1.005-1.025) Urine Protein 30 (1+) H (Neg-Trace) mg/dL Urine Glucose (UA) 500 H (Negative) mg/dL Urine Ketones Negative (Negative) mg/dL Urine Blood Negative (Negative) Urine Nitrite Negative (Negative) Ur Leukocyte Esterase Trace H (Negative) Urine RBC 0-2 (0-2) /HPF Urine WBC 0-5 (0-5) /HPF Ur Squamous Epith Cells 3-5 (0-2) /HPF Urine Bacteria None Seen (None Seen) Hyaline Casts 0-2 (0-2) /LPF Urine Opiates Screen Not Detected (Not Detect) Urine Fentanyl Screen POSITIVE H (Not Detect) Ur Barbiturates Screen Not Detected (Not Detect) Ur Phencyclidine Scrn Not Detected (Not Detect) Ur Amphetamines Screen Not Detected (Not Detect) U Benzodiazepines Scrn Not Detected (Not Detect) Urine Cocaine Screen POSITIVE H (Not Detect) U Marijuana (THC) Screen POSITIVE H (Not Detect) Ethyl Alcohol mg/dL COVID-19 (GINA) (Negative) COVID-19 Clin Com Influenza Type A (MARYLU) (Negative) Influenza Type B (MARYLU) (Negative) Influenza A & B Note 07/11/22 07/11/22 Range/Units 04:25 04:28 WBC (4.8-10.8) X10*3/uL RBC (4.20-5.50) X10*6/uL Hgb (12.0-16.0) g/dl Hct (37.0-47.0) % MCV (80.0-98.0) fL MCH (27.0-33.0) pg MCHC (31.0-35.0) g/dl RDW (11.0-16.0) % Plt Count (160-400) X10*3/uL MPV (9.4-12.3) fL Immature Gran % (Auto) (0.0-0.4) % Neut % (Auto) (45-73) % Lymph % (Auto) (20-40) % [place] % (Auto) (2-11) % Eos % (Auto) (0-4) % Baso % (Auto) (0-2) % Lymph # (Auto) (1.2-4.9) X10*3/uL [place] # (Auto) (0.1-1.2) X10*3/uL Eos # (Auto) (0.0-0.4) X10*3/uL Baso # (Auto) (0.0-0.2) X10*3/uL Abs Immat Gran (auto) (0.00-0.03) X10*3/uL Absolute Neuts (auto) (2.0-8.3) x10*3/uL Absolute Nucleated RBC (0.0-0.012) X10*3/uL Nucleated RBC % (auto) (0.0-0.2) /100WBC Smear Tech's Comments PT (10.0-13.1) SEC INR (0.9-1.1) VBG pH 7.29 L (7.32-7.43) VBG pCO2 43 mmHg VBG pO2 50 mmHg VBG HCO3 21 L (22-26) mmol/L VBG O2 Saturation 77.0 % VBG Base Excess -4.8 mmol/L Sodium (135-145) mmol/L Potassium (3.3-5.1) mmol/L Chloride (96-108) mmol/L Carbon Dioxide (22-29) mmol/L Anion Gap (12-20) BUN (9-16) mg/dL Creatinine (0.5-1.4) mg/dL Estim Creat Clear Calc Estimated GFR POC Glucose (60-115) mg/dL Random Glucose (60-115) mg/dL Lactic Acid (0.5-2.0) mmol/L Lactic Acid F/U @ 2Hr 1.1 (0.5-2.0) mmol/L Calcium (8.4-10.2) mg/dL Magnesium (1.6-2.6) mg/dL Total Bilirubin (0.0-1.0) mg/dL AST (5-31) U/L ALT (0-31) U/L Alkaline Phosphatase (39-117) U/L Total Creatine Kinase (26-140) U/L Troponin I High Sens (<3.5-17.0) ng/L Total Protein (6.5-8.0) g/dL Albumin (3.5-5.0) g/dL Urine Color Urine Appearance Urine pH (5.0-9.0) Ur Specific [place] (1.005-1.025) Urine Protein (Neg-Trace) mg/dL Urine Glucose (UA) (Negative) mg/dL Urine Ketones (Negative) mg/dL Urine Blood (Negative) Urine Nitrite (Negative) Ur Leukocyte Esterase (Negative) Urine RBC (0-2) /HPF Urine WBC (0-5) /HPF Ur Squamous Epith Cells (0-2) /HPF Urine Bacteria (None Seen) Hyaline Casts (0-2) /LPF Urine Opiates Screen (Not Detect) Urine Fentanyl Screen (Not Detect) Ur Barbiturates Screen (Not Detect) Ur Phencyclidine Scrn (Not Detect) Ur Amphetamines Screen (Not Detect) U Benzodiazepines Scrn (Not Detect) Urine Cocaine Screen (Not Detect) U Marijuana (THC) Screen (Not Detect) Ethyl Alcohol mg/dL COVID-19 (GINA) (Negative) COVID-19 Clin Com Influenza Type A (MARYLU) (Negative) Influenza Type B (MARYLU) (Negative) Influenza A & B Note Independent Interpretation I performed an independent interpretation of an: EKG Interpretation: Normal sinus rhythm, HR-86, no STEMI, SD/QRS/QTC are within normal limits. There are no noted Guido waves. Critical Care Time Critical Care Time Critical Care Time: Yes Total Critical Care Time: 60 Attestation: I personally attest to this time spent taking care of the patient. Discharge Plan Discharge Clinical Impression: Hypothermia, Drug overdose Patient Disposition: Admitted As Inpatient Prescriptions: No Action albuterol sulfate 90 mcg/actuation Hfa Aerosol Inhaler 2 puff INHALATION QID PRN (Reason: Wheezing) hydroxyzine pamoate 50 mg capsule 1 cap PO TID
[2022-07-11 01:23] LABS: Glucose, Whole Blood 117 mg/dL (60-115)
[2022-07-11 01:29] LABS: Ethanol 77 mg/dL
[2022-07-11 01:35] LABS: Troponin-I High Sensitivity 3.7 ng/L (<3.5-17.0)
[2022-07-11 01:38] LABS: Alanine Aminotransferase 42 U/L (0-31); Albumin Level 4.5 g/dL (3.5-5.0); Alkaline Phosphatase 142 U/L (39-117); Anion Gap 24 (12-20); Aspartate Amino Transferase 126 U/L (5-31); Bilirubin Total 0.3 mg/dL (0.0-1.0); Blood Urea Nitrogen 11 mg/dL (9-16); Calcium 9.2 mg/dL (8.4-10.2); Carbon Dioxide 14 mmol/L (22-29); Chloride 106 mmol/L (96-108); Creatinine Clr Calc Pharmacy 52.6; Estimated Glomerular Filt Rate 43; Glucose Random 353 mg/dL (60-115); Magnesium 2.7 mg/dL (1.6-2.6); Potassium 4.9 mmol/L (3.3-5.1); Sodium 139 mmol/L (135-145); Total Protein 7.7 g/dL (6.5-8.0)
[2022-07-11 01:40] LABS: SLIDE REVIEW VERIFIED
[2022-07-11 01:52] LABS: Glucose, Whole Blood 242 mg/dL (60-115)
[2022-07-11 02:26] LABS: Lactic Acid 3.6 mmol/L (0.5-2.0)
[2022-07-11 02:29] LABS: COVID-19 Test Negative (Negative); IDNOW Serial# 16C4AD1C; IDNOW Serial# BCCEAD1C; Influenza A Negative (Negative); Influenza B2 Negative (Negative)
[2022-07-11 02:32] LABS: INTERNATIONAL NORM RATIO 0.9 (0.9-1.1); Prothrombin Time 10.4 SEC (10.0-13.1)
[2022-07-11] MEDS: Lactated Ringers 2,000 ML 999 ML IV (03:10)
[2022-07-11 04:09] LABS: Reflex Lactate? Lactic Acid Added
--- NOTE | 2022-07-11 04:27 | PC.NURSE ---
VBG and lactic drawn, labs sent via tube system, mnemonic and date/time on labels
--- NOTE | 2022-07-11 04:27 | PC.NURSE ---
urine sample per lab orders sent to lab via tube system
[2022-07-11 04:34] LABS: Venous Blood Gas Refer to POC result
[2022-07-11 04:34] LABS: VBG Base Excess -4.8 mmol/L; VBG HCO3 21 mmol/L (22-26); VBG pCO2 43 mmHg; VBG pH 7.29 (7.32-7.43); VBG pO2 50 mmHg
[2022-07-11 04:35] LABS: Appearance Urine Clear; Color Urine Yellow; Glucose Urine UA 500 mg/dL (Negative); Leukocyte Esterase Urine Trace (Negative); Nitrite Urine Negative (Negative); PH 5.5 (5.0-9.0); UMIC TRIGGER UACC YES; Urine Blood Negative (Negative); Urine Ketones Negative (Negative); Urine Protein 30 (1+) mg/dL (Neg-Trace)
[2022-07-11 04:38] LABS: Bacteria Urine None Seen (None Seen); Hyaline Casts Urine 0-2 /LPF (0-2); RBC Urine 0-2 /HPF (0-2); WBC Urine 0-5 /HPF (0-5)
[2022-07-11 04:44] LABS: ~Lactic Acid-LAB USE ONLY 1.1 mmol/L (0.5-2.0)
[2022-07-11 04:49] LABS: Amphetamine Screen Urine Not Detected (Not Detect); Barbiturates, Urine Not Detected (Not Detect); Benzodiazepines Screen Urine Not Detected (Not Detect); Cannabinoid Screen Urine POSITIVE (Not Detect); Cocaine Screen Urine POSITIVE (Not Detect); Fentanyl, urine POSITIVE (Not Detect); Opiate Screen Urine Not Detected (Not Detect); Phencyclidine Screen Urine Not Detected (Not Detect)
--- NOTE | 2022-07-11 05:05 | PM.IMHP ---
History of Present Illness Date of Service: 07/11/22 Chief Complaint: Overdose This is a 27-year-old female with pertinent history of mood disorder, alcohol use disorder, substance use disorder was brought to the emergency department after she was found unresponsive. It was suspected that patient and she was given 8 mg Narcan intranasally. Unable to obtained any history from the patient or review of systems. History provided by ER provider and chart review. Patient only eye opening to verbal stimulus at the time of my evaluation. In the emergency department, patient was placed on 3 L supplemental oxygen. She was found to lactic acidosis and elevated creatinine Review of Systems Review of Systems: Yes Unobtainable due to mental status PMFSH Medical History Antisocial behavior Asthma Bipolar disorder, unspecified Depression Malingering Substance abuse Social History Household Members: None Housing: Homeless Do you presently have visiting nurse or other home services: No Unable to assess alcohol history related to: Refusing to respond Alcohol intake: current Alcohol intake frequency: 0-2 drinks per day Alcohol type: hard liquor Patient Tobacco Use Status: Never used Tobacco Tobacco use type: Cigarette Cigarette Packs Per Day: 0.5 Cigarettes Per Day: 10.0 e-Cigarette/Vaping Use: Never Used Second Hand Smoke Exposure: No Substance Use Type: Crack/Cocaine Advance Directives: No service: No Sexual orientation: Did not discuss Meds Allergies Allergy/AdvReac Type Severity Reaction Status Date / Time bee pollen [BEE STINGS] Allergy Unknown swelling Verified 08/10/20 22:22 ibuprofen [From MOTRIN] Allergy Unknown FACIAL Verified 08/10/20 22:22 SWELLING Home Medications Medication Instructions Recorded Confirmed Last Taken Type albuterol sulfate 90 mcg/actuation 2 puff inhalation QID PRN Wheezing 02/13/21 02/13/21 02/13/21 17:00 History aerosol inhaler hydroxyzine pamoate 50 mg capsule 1 cap PO TID 02/13/21 02/13/21 02/13/21 12:00 History Physical Exam Vital Signs and Narrative: Vital Signs: Last Vital Signs Temp 95.6 F L 07/11/22 03:16 Pulse 92 07/11/22 03:16 Resp 14 07/11/22 03:16 BP 130/74 07/11/22 03:16 Pulse Ox 98 07/11/22 03:16 O2 Del Method 07/11/22 03:16 O2 Flow Rate 3 07/11/22 03:16 BMI result Body Mass Index 28.0 Middle-aged female lying in bed on 3 L supplemental oxygen Neck supple, no JVD Regular rate and rhythm, S1-S2 heard Regular breath sounds bilaterally, no wheezing or crackles appreciated Abdomen soft nontender, no guarding, no rigidity Patient is only eye opening to verbal stimulus Psych: Drowsy No pedal edema Results Labs 07/11/22 01:00 07/11/22 01:00 Labs: Laboratory Results - last 24 hr 07/11/22 07/11/22 07/11/22 01:00 01:00 01:00 MCV 92.4 MCH 29.3 MCHC 31.7 RDW 14.1 Plt Count 401 H MPV 9.9 Immature Gran % (Auto) 1.5 H Neut % (Auto) 51.2 Lymph % (Auto) 38.5 [place] % (Auto) 5.6 Eos % (Auto) 2.6 Baso % (Auto) 0.6 Lymph # (Auto) 5.[address] [place] # (Auto) 0.8 Eos # (Auto) 0.4 Baso # (Auto) 0.1 Abs Immat Gran (auto) 0.21 H Absolute Neuts (auto) 7.2 Absolute Nucleated RBC 0.000 Nucleated RBC % (auto) 0.0 Smear Tech's Comments VERIFIED PT INR VBG pH VBG pCO2 VBG pO2 VBG HCO3 VBG O2 Saturation VBG Base Excess Anion Gap 24 H Estim Creat Clear Calc 52.6 Estimated GFR 43 POC Glucose Random Glucose 353 H* Lactic Acid Lactic Acid F/U @ 2Hr Calcium 9.2 Magnesium 2.7 H Total Bilirubin 0.3 AST 126 H ALT 42 H Alkaline Phosphatase 142 H Total Creatine Kinase Troponin I High Sens 3.7 Total Protein 7.7 Albumin 4.5 Urine Color Urine Appearance Urine pH Ur Specific [place] Urine Protein Urine Glucose (UA) Urine Ketones Urine Blood Urine Nitrite Ur Leukocyte Esterase Urine RBC Urine WBC Ur Squamous Epith Cells Urine Bacteria Hyaline Casts Urine Opiates Screen Urine Fentanyl Screen Ur Barbiturates Screen Ur Phencyclidine Scrn Ur Amphetamines Screen U Benzodiazepines Scrn Urine Cocaine Screen U Marijuana (THC) Screen Ethyl Alcohol COVID-19 (GINA) COVID-19 Clin Com Influenza Type A (MARYLU) Influenza Type B (MARYLU) Influenza A & B Note 07/11/22 07/11/22 07/11/22 01:00 01:08 01:46 MCV MCH MCHC RDW Plt Count MPV Immature Gran % (Auto) Neut % (Auto) Lymph % (Auto) [place] % (Auto) Eos % (Auto) Baso % (Auto) Lymph # (Auto) [place] # (Auto) Eos # (Auto) Baso # (Auto) Abs Immat Gran (auto) Absolute Neuts (auto) Absolute Nucleated RBC Nucleated RBC % (auto) Smear Tech's Comments PT INR VBG pH VBG pCO2 VBG pO2 VBG HCO3 VBG O2 Saturation VBG Base Excess Anion Gap Estim Creat Clear Calc Estimated GFR POC Glucose 117 H 242 H Random Glucose Lactic Acid Lactic Acid F/U @ 2Hr Calcium Magnesium Total Bilirubin AST ALT Alkaline Phosphatase Total Creatine Kinase 86 Troponin I High Sens Total Protein Albumin Urine Color Urine Appearance Urine pH Ur Specific [place] Urine Protein Urine Glucose (UA) Urine Ketones Urine Blood Urine Nitrite Ur Leukocyte Esterase Urine RBC Urine WBC Ur Squamous Epith Cells Urine Bacteria Hyaline Casts Urine Opiates Screen Urine Fentanyl Screen Ur Barbiturates Screen Ur Phencyclidine Scrn Ur Amphetamines Screen U Benzodiazepines Scrn Urine Cocaine Screen U Marijuana (THC) Screen Ethyl Alcohol 77 COVID-19 (GINA) COVID-19 Clin Com Influenza Type A (MARYLU) Influenza Type B (MARYLU) Influenza A & B Note 07/11/22 07/11/22 07/11/22 02:04 02:04 02:04 MCV MCH MCHC RDW Plt Count MPV Immature Gran % (Auto) Neut % (Auto) Lymph % (Auto) [place] % (Auto) Eos % (Auto) Baso % (Auto) Lymph # (Auto) [place] # (Auto) Eos # (Auto) Baso # (Auto) Abs Immat Gran (auto) Absolute Neuts (auto) Absolute Nucleated RBC Nucleated RBC % (auto) Smear Tech's Comments PT 10.4 INR 0.9 VBG pH VBG pCO2 VBG pO2 VBG HCO3 VBG O2 Saturation VBG Base Excess Anion Gap Estim Creat Clear Calc Estimated GFR POC Glucose Random Glucose Lactic Acid Lactic Acid F/U @ 2Hr Calcium Magnesium Total Bilirubin AST ALT Alkaline Phosphatase Total Creatine Kinase Troponin I High Sens Total Protein Albumin Urine Color Urine Appearance Urine pH Ur Specific [place] Urine Protein Urine Glucose (UA) Urine Ketones Urine Blood Urine Nitrite Ur Leukocyte Esterase Urine RBC Urine WBC Ur Squamous Epith Cells Urine Bacteria Hyaline Casts Urine Opiates Screen Urine Fentanyl Screen Ur Barbiturates Screen Ur Phencyclidine Scrn Ur Amphetamines Screen U Benzodiazepines Scrn Urine Cocaine Screen U Marijuana (THC) Screen Ethyl Alcohol COVID-19 (GINA) Negative COVID-19 Clin Com See Note Influenza Type A (MARYLU) Negative Influenza Type B (MARYLU) Negative Influenza A & B Note See Note 07/11/22 07/11/22 07/11/22 02:04 04:14 04:14 MCV MCH MCHC RDW Plt Count MPV Immature Gran % (Auto) Neut % (Auto) Lymph % (Auto) [place] % (Auto) Eos % (Auto) Baso % (Auto) Lymph # (Auto) [place] # (Auto) Eos # (Auto) Baso # (Auto) Abs Immat Gran (auto) Absolute Neuts (auto) Absolute Nucleated RBC Nucleated RBC % (auto) Smear Tech's Comments PT INR VBG pH VBG pCO2 VBG pO2 VBG HCO3 VBG O2 Saturation VBG Base Excess Anion Gap Estim Creat Clear Calc Estimated GFR POC Glucose Random Glucose Lactic Acid 3.6 H* Lactic Acid F/U @ 2Hr Calcium Magnesium Total Bilirubin AST ALT Alkaline Phosphatase Total Creatine Kinase Troponin I High Sens Total Protein Albumin Urine Color Yellow Urine Appearance Clear Urine pH 5.5 Ur Specific [place] 1.010 Urine Protein 30 (1+) H Urine Glucose (UA) 500 H Urine Ketones Negative Urine Blood Negative Urine Nitrite Negative Ur Leukocyte Esterase Trace H Urine RBC 0-2 Urine WBC 0-5 Ur Squamous Epith Cells 3-5 Urine Bacteria None Seen Hyaline Casts 0-2 Urine Opiates Screen Not Detected Urine Fentanyl Screen POSITIVE H Ur Barbiturates Screen Not Detected Ur Phencyclidine Scrn Not Detected Ur Amphetamines Screen Not Detected U Benzodiazepines Scrn Not Detected Urine Cocaine Screen POSITIVE H U Marijuana (THC) Screen POSITIVE H Ethyl Alcohol COVID-19 (GINA) COVID-19 Clin Com Influenza Type A (MARYLU) Influenza Type B (MARYLU) Influenza A & B Note 07/11/22 07/11/22 04:25 04:28 MCV MCH MCHC RDW Plt Count MPV Immature Gran % (Auto) Neut % (Auto) Lymph % (Auto) [place] % (Auto) Eos % (Auto) Baso % (Auto) Lymph # (Auto) [place] # (Auto) Eos # (Auto) Baso # (Auto) Abs Immat Gran (auto) Absolute Neuts (auto) Absolute Nucleated RBC Nucleated RBC % (auto) Smear Tech's Comments PT INR VBG pH 7.29 L VBG pCO2 43 VBG pO2 50 VBG HCO3 21 L VBG O2 Saturation 77.0 VBG Base Excess -4.8 Anion Gap Estim Creat Clear Calc Estimated GFR POC Glucose Random Glucose Lactic Acid Lactic Acid F/U @ 2Hr 1.1 Calcium Magnesium Total Bilirubin AST ALT Alkaline Phosphatase Total Creatine Kinase Troponin I High Sens Total Protein Albumin Urine Color Urine Appearance Urine pH Ur Specific [place] Urine Protein Urine Glucose (UA) Urine Ketones Urine Blood Urine Nitrite Ur Leukocyte Esterase Urine RBC Urine WBC Ur Squamous Epith Cells Urine Bacteria Hyaline Casts Urine Opiates Screen Urine Fentanyl Screen Ur Barbiturates Screen Ur Phencyclidine Scrn Ur Amphetamines Screen U Benzodiazepines Scrn Urine Cocaine Screen U Marijuana (THC) Screen Ethyl Alcohol COVID-19 (GINA) COVID-19 Clin Com Influenza Type A (MARYLU) Influenza Type B (MARYLU) Influenza A & B Note Imaging Radiologist's Impressions: Impressions Chest X-Ray 07/11/22 03:34 IMPRESSION: No acute cardiopulmonary findings. Assessment and Plan (1) Drug overdose: Status: Acute (2) Hypoxia: Status: Acute Plan This is a 27-year-old female with pertinent history of mood disorder, alcohol use disorder, substance use disorder was brought to the emergency department after she was found unresponsive. #. Acute toxic encephalopathy in the setting of: #. Substance use disorder -UDS positive for fentanyl, cocaine and marijuana. Close monitoring of hemodynamics. Consulted CARE team and Addiction Team. Monitor for withdrawal #. Acute hypoxemic respiratory failure in the setting of hypoventilation due to above: On 3 L supplemental oxygen, monitor and wean as tolerated #. Hypothermia due to drug use disorder. Improved with Leann Laughlin #. Hyperglycemia: Initiating Accu-Cheks with sliding scale insulin every 6 hours. Obtaining A1c #. Acute kidney injury, likely prerenal in the setting of intravascular volume depletion: Monitor creatinine and urine output with fluid resuscitation. Avoid nephrotoxins #. Acute lactic acidosis: Due to hypoxia and hypoperfusion: Unlikely due to sepsis #. Reactive leukocytosis #. Mood disorder: Unclear home prescription medications. Resume once no longer NPO #. Alcohol use disorder: Monitor CIWA. Initiating thiamine Med rec pending DVT prophylaxis: Lovenox 40 mg daily Full code NPO until mentation improves Admit as inpatient and will require two night minimum hospital stay for supplemental oxygen and close monitoring of mentation/hemodynamics in this patient with high risk for withdrawal Time Spent With Patient Time: Total time managing care of this patient today ____ minutes. Quality Stroke Does the patient have a stroke diagnosis?: No VTE Prior VTE?: No VTE Risk Level:: Medical - moderate - high VTE Device Contraindication: Treatment Not Indicated VTE Drug Contraindication: N/A - Med Ordered
[2022-07-11] MEDS: ondansetron HCL 4 MG/2 ML VIAL IVPUSH (06:13)
[2022-07-11] MEDS: Thiamine HCL 100 MG in 0.9 % Sodium Chloride 100 ML 202 MG IV (06:13)
[2022-07-11] MEDS: Enoxaparin Sodium 40 MG/0.4 ML SYRINGE SUBCUT (06:13)
[2022-07-11 06:43] LABS: Glucose, Whole Blood 81 mg/dL (60-115)
[2022-07-11 07:07] LABS: Anion Gap 10 (12-20); Blood Urea Nitrogen 11 mg/dL (9-16); Calcium 8.5 mg/dL (8.4-10.2); Carbon Dioxide 26 mmol/L (22-29); Chloride 111 mmol/L (96-108); Creatinine Clr Calc Pharmacy 90.2; Estimated Glomerular Filt Rate > 60; Glucose Random 84 mg/dL (60-115); Potassium 4.9 mmol/L (3.3-5.1); Sodium 142 mmol/L (135-145)
[2022-07-11 07:14] LABS: Estimated Average Glucose 94 mg/dL; Hemoglobin A1c % 4.9 %
[2022-07-11 07:41] LABS: Glucose, Whole Blood 77 mg/dL (60-115)
--- NOTE | 2022-07-11 07:43 | PHA.MEDREC ---
Pharmacy Consult ? Medication Reconciliation Pharmacy has completed the medication reconciliation. Confirmed with patient as well as I could with assistance of nurse who was in room. Patient seems to be saying she is not on meds at home and that matches claim history but she is slow to respond and her speech is very slurred.
[2022-07-11] MEDS: 0.9 % Sodium Chloride Flush 3 ML SYRINGE IVFLUSH ×2 (09:19→19:34)
[2022-07-11 13:28] LABS: Glucose, Whole Blood 71 mg/dL (60-115)
--- NOTE | 2022-07-11 14:29 | HO.ADDICTCON ---
History of Present Illness Date of Service: 07/11/2022 Chief Complaint: Overdose Reason for Consult: substnace use HPI Narrative: Patient is a 27 year old female currently medically admitted following overdose with hypothermia. Consult requested as UDS +. Patient seen in room 9 of main ED. Awake, alert, and quite irritable when approachd by this pattern chart writer and automotive brake adjuster. Denies any withdrawal sx and denied any substance use. Emphatically declined to continue interview. Review of Systems Review of Systems Yes Other (deferred) Diagnostics Vital Signs (24Hr): Vital Signs - 24 hr 07/11/22 01:09 07/11/22 01:36 07/11/22 03:16 Temperature 93.9 F L 95.6 F L Pulse Rate 90 92 Respiratory Rate 14 14 Blood Pressure 135/88 130/74 Pulse Oximetry 98 98 Oxygen Delivery Method Nasal Cannula Nasal Cannula Oxygen Flow Rate 3 3 07/11/22 07:28 07/11/22 09:21 Temperature 98.2 F Pulse Rate 98 90 Respiratory Rate 11 L 17 Blood Pressure 110/66 Pulse Oximetry 96 93 Oxygen Delivery Method Room Air Nasal Cannula Oxygen Flow Rate 3 BMI result Body Mass Index 28.0 Labs 07/11/22 01:00 07/11/22 06:25 Labs: Laboratory Results - last 48 hr 07/11/22 07/11/22 07/11/22 01:00 01:00 01:00 WBC 14.0 H RBC 4.20 Hgb 12.3 Hct 38.8 MCV 92.4 MCH 29.3 MCHC 31.7 RDW 14.1 Plt Count 401 H MPV 9.9 Immature Gran % (Auto) 1.5 H Neut % (Auto) 51.2 Lymph % (Auto) 38.5 [place] % (Auto) 5.6 Eos % (Auto) 2.6 Baso % (Auto) 0.6 Lymph # (Auto) 5.4 H [place] # (Auto) 0.8 Eos # (Auto) 0.4 Baso # (Auto) 0.1 Abs Immat Gran (auto) 0.21 H Absolute Neuts (auto) 7.2 Absolute Nucleated RBC 0.000 Nucleated RBC % (auto) 0.0 Smear Tech's Comments VERIFIED PT INR VBG pH VBG pCO2 VBG pO2 VBG HCO3 VBG O2 Saturation VBG Base Excess Sodium 139 Potassium 4.9 Chloride 106 Carbon Dioxide 14 L Anion Gap 24 H BUN 11 Creatinine 1.44 H Estim Creat Clear Calc 52.6 Estimated GFR 43 POC Glucose Random Glucose 353 H* Estimat Average Glucose Hemoglobin A1c % Lactic Acid Lactic Acid F/U @ 2Hr Calcium 9.2 Magnesium 2.7 H Total Bilirubin 0.3 AST 126 H ALT 42 H Alkaline Phosphatase 142 H Total Creatine Kinase Troponin I High Sens 3.7 Total Protein 7.7 Albumin 4.5 Urine Color Urine Appearance Urine pH Ur Specific [place] Urine Protein Urine Glucose (UA) Urine Ketones Urine Blood Urine Nitrite Ur Leukocyte Esterase Urine RBC Urine WBC Ur Squamous Epith Cells Urine Bacteria Hyaline Casts Urine Opiates Screen Urine Fentanyl Screen Ur Barbiturates Screen Ur Phencyclidine Scrn Ur Amphetamines Screen U Benzodiazepines Scrn Urine Cocaine Screen U Marijuana (THC) Screen Ethyl Alcohol COVID-19 (GINA) COVID-19 Clin Com Influenza Type A (MARYLU) Influenza Type B (MARYLU) Influenza A & B Note 07/11/22 07/11/22 07/11/22 01:00 01:00 01:08 WBC RBC Hgb Hct MCV MCH MCHC RDW Plt Count MPV Immature Gran % (Auto) Neut % (Auto) Lymph % (Auto) [place] % (Auto) Eos % (Auto) Baso % (Auto) Lymph # (Auto) [place] # (Auto) Eos # (Auto) Baso # (Auto) Abs Immat Gran (auto) Absolute Neuts (auto) Absolute Nucleated RBC Nucleated RBC % (auto) Smear Tech's Comments PT INR VBG pH VBG pCO2 VBG pO2 VBG HCO3 VBG O2 Saturation VBG Base Excess Sodium Potassium Chloride Carbon Dioxide Anion Gap BUN Creatinine Estim Creat Clear Calc Estimated GFR POC Glucose 117 H Random Glucose Estimat Average Glucose 94 Hemoglobin A1c % 4.9 Lactic Acid Lactic Acid F/U @ 2Hr Calcium Magnesium Total Bilirubin AST ALT Alkaline Phosphatase Total Creatine Kinase 86 Troponin I High Sens Total Protein Albumin Urine Color Urine Appearance Urine pH Ur Specific [place] Urine Protein Urine Glucose (UA) Urine Ketones Urine Blood Urine Nitrite Ur Leukocyte Esterase Urine RBC Urine WBC Ur Squamous Epith Cells Urine Bacteria Hyaline Casts Urine Opiates Screen Urine Fentanyl Screen Ur Barbiturates Screen Ur Phencyclidine Scrn Ur Amphetamines Screen U Benzodiazepines Scrn Urine Cocaine Screen U Marijuana (THC) Screen Ethyl Alcohol 77 COVID-19 (GINA) COVID-19 Clin Com Influenza Type A (MARYLU) Influenza Type B (MARYLU) Influenza A & B Note 07/11/22 07/11/22 07/11/22 01:46 02:04 02:04 WBC RBC Hgb Hct MCV MCH MCHC RDW Plt Count MPV Immature Gran % (Auto) Neut % (Auto) Lymph % (Auto) [place] % (Auto) Eos % (Auto) Baso % (Auto) Lymph # (Auto) [place] # (Auto) Eos # (Auto) Baso # (Auto) Abs Immat Gran (auto) Absolute Neuts (auto) Absolute Nucleated RBC Nucleated RBC % (auto) Smear Tech's Comments PT 10.4 INR 0.9 VBG pH VBG pCO2 VBG pO2 VBG HCO3 VBG O2 Saturation VBG Base Excess Sodium Potassium Chloride Carbon Dioxide Anion Gap BUN Creatinine Estim Creat Clear Calc Estimated GFR POC Glucose 242 H Random Glucose Estimat Average Glucose Hemoglobin A1c % Lactic Acid Lactic Acid F/U @ 2Hr Calcium Magnesium Total Bilirubin AST ALT Alkaline Phosphatase Total Creatine Kinase Troponin I High Sens Total Protein Albumin Urine Color Urine Appearance Urine pH Ur Specific [place] Urine Protein Urine Glucose (UA) Urine Ketones Urine Blood Urine Nitrite Ur Leukocyte Esterase Urine RBC Urine WBC Ur Squamous Epith Cells Urine Bacteria Hyaline Casts Urine Opiates Screen Urine Fentanyl Screen Ur Barbiturates Screen Ur Phencyclidine Scrn Ur Amphetamines Screen U Benzodiazepines Scrn Urine Cocaine Screen U Marijuana (THC) Screen Ethyl Alcohol COVID-19 (GINA) COVID-19 Clin Com Influenza Type A (MARYLU) Negative Influenza Type B (MARYLU) Negative Influenza A & B Note See Note 07/11/22 07/11/22 07/11/22 02:04 02:04 04:14 WBC RBC Hgb Hct MCV MCH MCHC RDW Plt Count MPV Immature Gran % (Auto) Neut % (Auto) Lymph % (Auto) [place] % (Auto) Eos % (Auto) Baso % (Auto) Lymph # (Auto) [place] # (Auto) Eos # (Auto) Baso # (Auto) Abs Immat Gran (auto) Absolute Neuts (auto) Absolute Nucleated RBC Nucleated RBC % (auto) Smear Tech's Comments PT INR VBG pH VBG pCO2 VBG pO2 VBG HCO3 VBG O2 Saturation VBG Base Excess Sodium Potassium Chloride Carbon Dioxide Anion Gap BUN Creatinine Estim Creat Clear Calc Estimated GFR POC Glucose Random Glucose Estimat Average Glucose Hemoglobin A1c % Lactic Acid 3.6 H* Lactic Acid F/U @ 2Hr Calcium Magnesium Total Bilirubin AST ALT Alkaline Phosphatase Total Creatine Kinase Troponin I High Sens Total Protein Albumin Urine Color Yellow Urine Appearance Clear Urine pH 5.5 Ur Specific [place] 1.010 Urine Protein 30 (1+) H Urine Glucose (UA) 500 H Urine Ketones Negative Urine Blood Negative Urine Nitrite Negative Ur Leukocyte Esterase Trace H Urine RBC 0-2 Urine WBC 0-5 Ur Squamous Epith Cells 3-5 Urine Bacteria None Seen Hyaline Casts 0-2 Urine Opiates Screen Urine Fentanyl Screen Ur Barbiturates Screen Ur Phencyclidine Scrn Ur Amphetamines Screen U Benzodiazepines Scrn Urine Cocaine Screen U Marijuana (THC) Screen Ethyl Alcohol COVID-19 (GINA) Negative COVID-19 Clin Com See Note Influenza Type A (MARYLU) Influenza Type B (MARYLU) Influenza A & B Note 07/11/22 07/11/22 07/11/22 04:14 04:25 04:28 WBC RBC Hgb Hct MCV MCH MCHC RDW Plt Count MPV Immature Gran % (Auto) Neut % (Auto) Lymph % (Auto) [place] % (Auto) Eos % (Auto) Baso % (Auto) Lymph # (Auto) [place] # (Auto) Eos # (Auto) Baso # (Auto) Abs Immat Gran (auto) Absolute Neuts (auto) Absolute Nucleated RBC Nucleated RBC % (auto) Smear Tech's Comments PT INR VBG pH 7.29 L VBG pCO2 43 VBG pO2 50 VBG HCO3 21 L VBG O2 Saturation 77.0 VBG Base Excess -4.8 Sodium Potassium Chloride Carbon Dioxide Anion Gap BUN Creatinine Estim Creat Clear Calc Estimated GFR POC Glucose Random Glucose Estimat Average Glucose Hemoglobin A1c % Lactic Acid Lactic Acid F/U @ 2Hr 1.1 Calcium Magnesium Total Bilirubin AST ALT Alkaline Phosphatase Total Creatine Kinase Troponin I High Sens Total Protein Albumin Urine Color Urine Appearance Urine pH Ur Specific [place] Urine Protein Urine Glucose (UA) Urine Ketones Urine Blood Urine Nitrite Ur Leukocyte Esterase Urine RBC Urine WBC Ur Squamous Epith Cells Urine Bacteria Hyaline Casts Urine Opiates Screen Not Detected Urine Fentanyl Screen POSITIVE H Ur Barbiturates Screen Not Detected Ur Phencyclidine Scrn Not Detected Ur Amphetamines Screen Not Detected U Benzodiazepines Scrn Not Detected Urine Cocaine Screen POSITIVE H U Marijuana (THC) Screen POSITIVE H Ethyl Alcohol COVID-19 (GINA) COVID-19 Clin Com Influenza Type A (MARYLU) Influenza Type B (MARYLU) Influenza A & B Note 07/11/22 07/11/22 07/11/22 06:25 06:38 07:35 WBC RBC Hgb Hct MCV MCH MCHC RDW Plt Count MPV Immature Gran % (Auto) Neut % (Auto) Lymph % (Auto) [place] % (Auto) Eos % (Auto) Baso % (Auto) Lymph # (Auto) [place] # (Auto) Eos # (Auto) Baso # (Auto) Abs Immat Gran (auto) Absolute Neuts (auto) Absolute Nucleated RBC Nucleated RBC % (auto) Smear Tech's Comments PT INR VBG pH VBG pCO2 VBG pO2 VBG HCO3 VBG O2 Saturation VBG Base Excess Sodium 142 Potassium 4.9 Chloride 111 H Carbon Dioxide 26 Anion Gap 10 L BUN 11 Creatinine 0.84 Estim Creat Clear Calc 90.2 Estimated GFR > 60 POC Glucose 81 77 Random Glucose 84 Estimat Average Glucose Hemoglobin A1c % Lactic Acid Lactic Acid F/U @ 2Hr Calcium 8.5 D Magnesium Total Bilirubin AST ALT Alkaline Phosphatase Total Creatine Kinase Troponin I High Sens Total Protein Albumin Urine Color Urine Appearance Urine pH Ur Specific [place] Urine Protein Urine Glucose (UA) Urine Ketones Urine Blood Urine Nitrite Ur Leukocyte Esterase Urine RBC Urine WBC Ur Squamous Epith Cells Urine Bacteria Hyaline Casts Urine Opiates Screen Urine Fentanyl Screen Ur Barbiturates Screen Ur Phencyclidine Scrn Ur Amphetamines Screen U Benzodiazepines Scrn Urine Cocaine Screen U Marijuana (THC) Screen Ethyl Alcohol COVID-19 (GINA) COVID-19 Clin Com Influenza Type A (MARYLU) Influenza Type B (MARYLU) Influenza A & B Note 07/11/22 13:19 WBC RBC Hgb Hct MCV MCH MCHC RDW Plt Count MPV Immature Gran % (Auto) Neut % (Auto) Lymph % (Auto) [place] % (Auto) Eos % (Auto) Baso % (Auto) Lymph # (Auto) [place] # (Auto) Eos # (Auto) Baso # (Auto) Abs Immat Gran (auto) Absolute Neuts (auto) Absolute Nucleated RBC Nucleated RBC % (auto) Smear Tech's Comments PT INR VBG pH VBG pCO2 VBG pO2 VBG HCO3 VBG O2 Saturation VBG Base Excess Sodium Potassium Chloride Carbon Dioxide Anion Gap BUN Creatinine Estim Creat Clear Calc Estimated GFR POC Glucose 71 Random Glucose Estimat Average Glucose Hemoglobin A1c % Lactic Acid Lactic Acid F/U @ 2Hr Calcium Magnesium Total Bilirubin AST ALT Alkaline Phosphatase Total Creatine Kinase Troponin I High Sens Total Protein Albumin Urine Color Urine Appearance Urine pH Ur Specific [place] Urine Protein Urine Glucose (UA) Urine Ketones Urine Blood Urine Nitrite Ur Leukocyte Esterase Urine RBC Urine WBC Ur Squamous Epith Cells Urine Bacteria Hyaline Casts Urine Opiates Screen Urine Fentanyl Screen Ur Barbiturates Screen Ur Phencyclidine Scrn Ur Amphetamines Screen U Benzodiazepines Scrn Urine Cocaine Screen U Marijuana (THC) Screen Ethyl Alcohol COVID-19 (GINA) COVID-19 Clin Com Influenza Type A (MARYLU) Influenza Type B (MARYLU) Influenza A & B Note Imaging Radiology Impressions: ITS Impressions Chest X-Ray 07/11/22 03:34 IMPRESSION: No acute cardiopulmonary findings. Mental Status Exam Mental Status Exam Level of Consciousness: Awake Patient Behavior: Guarded, Uncooperative and Poor Eye Contact Mood Description: Hostile Medications Medications Current Medications Acetaminophen (Acetaminophen 325 Mg Tablet) 650 mg PO Q6H PRN PRN Reason: Pain, Mild (Pain Scale 1-3) Acetaminophen (Acetaminophen Supp 650 Mg Supp.Rect) 650 mg NC Q6H PRN PRN Reason: Pain, Mild (Pain Scale 1-3) Enoxaparin Sodium (Enoxaparin Sodium 40 Mg/0.4 Ml Syringe) 40 mg SUBCUT Q24H [facility] Last Admin: 07/11/22 06:13 Dose: 40 mg Glucose (Glucose Gel 15 Gm Gel..Gram.) 15 gm PO Q15M PRN; Protocol PRN Reason: per Hypoglycemia Standing Ord. Thiamine HCl 100 mg/ Sodium (Chloride) 101 mls @ 202 mls/hr IV DAILY [facility] Last Infusion: 07/11/22 06:44 Dose: Infused Dextrose (D10) 250 mls @ 750 mls/hr IV Q15M PRN; Protocol PRN Reason: per Hypoglycemia Standing Ord. Insulin Human Lispro (Insulin Lispro 100 Unit/Ml 3 Ml Vial) 0 unit SUBCUT Q6H [facility]; Protocol Last Admin: 07/11/22 13:31 Dose: Not Given Melatonin (Melatonin 3 Mg Tablet) 6 mg PO BEDTIME PRN PRN Reason: Insomnia Ondansetron HCl (Ondansetron Hcl 4 Mg/2 Ml Vial) 4 mg IVPUSH Q8H PRN PRN Reason: Nausea and Vomiting Pharmacy Consult (Consult Rx Perform Med Rec) 1 each MISCELLANE ONCE PRN PRN Reason: Consult order Sodium Chloride (0.9 % Sodium Chloride Flush 3 Ml Syringe) 3 ml IVFLUSH QSHIFT [facility] Last Admin: 07/11/22 09:19 Dose: 3 ml Allergies Allergies Allergy/AdvReac Type Severity Reaction Status Date / Time bee pollen [BEE STINGS] Allergy Unknown swelling Verified 07/11/22 06:47 ibuprofen [From MOTRIN] Allergy Unknown FACIAL Verified 08/10/20 22:22 SWELLING Assessment & Plan Assessment & Plan (1) Drug overdose: Status: Acute Code(s): T50.901A - Poisoning by unspecified drugs, medicaments and biological substances, accidental (unintentional), initial encounter Assessment and Plan: patient unwilling to engage in interview please reconsult if patient requests Total time managing care of this patient today _15___ minutes. PMFSH Past Medical History Medical History Antisocial behavior Asthma Bipolar disorder, unspecified Depression Malingering Substance abuse Social History Social History Household Members: None Housing: Homeless Do you presently have visiting nurse or other home services: No Unable to assess alcohol history related to: Refusing to respond Alcohol intake: current Alcohol intake frequency: 0-2 drinks per day Alcohol type: hard liquor Patient Tobacco Use Status: Tobacco use Unknown Tobacco use type: Cigarette Cigarette Packs Per Day: 0.5 Cigarettes Per Day: 10.0 Smoked in Last 30 Days: Yes e-Cigarette/Vaping Use: Never Used Second Hand Smoke Exposure: No Use of substances other than those prescribed or required for medical reasons: Yes Substance Use Type: Crack/Cocaine and Marijuana Advance Directives: No Nutrition Risks: Acute nausea or vomiting x1 week service: No Sexual orientation: Did not discuss
--- NOTE | 2022-07-11 15:11 | PM.EVENT ---
Event Note Date of Service: 07/11/22 Event Note: patient examined chart reviewed. Remains agitated and unwilling to engage in conversation. Respiratory rate on labored sats acceptable on room air. Appreciate Addiction Medicine attempt at interview. Will observe 24 hours and if no further deterioration will DC in a.m. Time Spent With Patient Time: Total time managing care of this patient today ____ minutes.
--- NOTE | 2022-07-11 18:29 | PC.NURSE ---
Addendum entered by Edi Natarajan RN 07/11/22 18:30: pt stated she uses everything, specifically stated tobacco, weed, coke, meth, crack and stated she drinks all day every day without providing specific information. Original Note: Admission assessment and risk assessment difficult to complete d/t pt being so drowsy and agitated, resistant to care and part of assessment. md informed of pt's chest pain. camera placed in room. bed alarm and call thomas in place. pt educated on fall risk precautions and how to call for staff, not to get OOB alone and not touch IV
[2022-07-11 20:42] LABS: Glucose, Whole Blood 89 mg/dL (60-115)
[2022-07-12 00:50] LABS: Glucose, Whole Blood 92 mg/dL (60-115)
[2022-07-12 05:43] LABS: Glucose, Whole Blood 95 mg/dL (60-115)
[2022-07-12 06:17] LABS: MANUAL DIFF FLAG NO
[2022-07-12 06:57] LABS: Basophils Absolute Auto 0.1 X10*3/uL (0.0-0.2); Basophils Percent Auto 0.6 % (0-2); Eosinophils Absolute Auto 0.2 X10*3/uL (0.0-0.4); Eosinophils Percent Auto 2.2 % (0-4); Hematocrit 36.7 % (37.0-47.0); Hemoglobin 11.9 g/dl (12.0-16.0); Imm Gran Abs Auto 0.03 X10*3/uL (0.00-0.03); Imm Gran Pct Auto 0.3 % (0.0-0.4); Lymphocytes Absolute Auto 3.5 X10*3/uL (1.2-4.9); Lymphocytes Percent Auto 35.7 % (20-40); Mean Corpuscular HGB Conc 32.4 g/dl (31.0-35.0); Mean Corpuscular Hemoglobin 29.5 pg (27.0-33.0); Mean Corpuscular Volume 91.1 fL (80.0-98.0); Mean Platelet Volume 10.6 fL (9.4-12.3); Monocytes Absolute Auto 0.8 X10*3/uL (0.1-1.2); Monocytes Percent Auto 8.2 % (2-11); Neutrophils Absolute Auto 5.2 x10*3/uL (2.0-8.3); Platelet Count 292 X10*3/uL (160-400); Red Blood Count 4.03 X10*6/uL (4.20-5.50); Red Cell Distribution Width 14.3 % (11.0-16.0); White Blood Count 9.8 X10*3/uL (4.8-10.8)
[2022-07-12 07:06] LABS: Anion Gap 14 (12-20); Blood Urea Nitrogen 9 mg/dL (9-16); Calcium 8.8 mg/dL (8.4-10.2); Carbon Dioxide 23 mmol/L (22-29); Chloride 105 mmol/L (96-108); Creatinine Clr Calc Pharmacy 84.2; Estimated Glomerular Filt Rate > 60; Glucose Random 77 mg/dL (60-115); Potassium 4.3 mmol/L (3.3-5.1); Sodium 138 mmol/L (135-145)
[2022-07-12] MEDS: Thiamine HCL 100 MG in 0.9 % Sodium Chloride 100 ML 202 MG IV (09:31)
[2022-07-12] MEDS: 0.9 % Sodium Chloride Flush 3 ML SYRINGE IVFLUSH ×3 (09:34→23:07)
--- NOTE | 2022-07-12 11:18 | P.PNIM_ITS ---
Subjective Subjective Date of Service: 07/12/22 Interval History: Much more engaging this a.m.. Able to recount events that led up to hospitalization. States she has been smoking large amounts of crack cocaine and on the day of admission smoked fentanyl through crack pipe. She stated she immediately felt like she would from the fentanyl; is requesting detox program Review of Systems denies chest pain Denies shortness of breath Denies nausea vomiting diarrhea Denies fever chills Physical Exam Vital Signs: Vital Signs: Last Vital Signs Temp 98.4 F 07/11/22 19:33 Pulse 91 07/11/22 19:33 Resp 18 07/11/22 19:33 BP 118/54 L 07/11/22 19:33 Pulse Ox 92 07/11/22 19:33 O2 Del Method 07/11/22 19:33 O2 Flow Rate 3 07/11/22 09:21 BMI result Body Mass Index 28.0 Const: Other: awake alert cooperative Resp: Other: clear to auscultation bilaterally no rales rhonchi or wheezes Cardio: Other: no S4; positive S1-S2; no S3 murmurs rubs or gallops GI: Other: soft nontender nondistended normoactive bowel sounds Neuro: Other: cranial nerves 2-12 grossly intact as tested. Motor is 5/5 all extremities. Sensation is intact. Cognition appropriate Extrem: Other: no edema bilaterally Objective Data Active Medications Acetaminophen (Acetaminophen 325 Mg Tablet) 650 mg PO Q6H PRN PRN Reason: Pain, Mild (Pain Scale 1-3) Acetaminophen (Acetaminophen Supp 650 Mg Supp.Rect) 650 mg IN Q6H PRN PRN Reason: Pain, Mild (Pain Scale 1-3) Enoxaparin Sodium (Enoxaparin Sodium 40 Mg/0.4 Ml Syringe) 40 mg SUBCUT Q24H [facility] Last Admin: 07/12/22 05:43 Dose: Not Given Documented By: JUSTIN Non-Admin Reason: Patient Refused Glucose (Glucose Gel 15 Gm Gel..Gram.) 15 gm PO Q15M PRN; Protocol PRN Reason: per Hypoglycemia Standing Ord. Thiamine HCl 100 mg/ Sodium (Chloride) 101 mls @ 202 mls/hr IV DAILY [facility] Last Infusion: 07/12/22 10:06 Dose: 0 mls/hr Documented By: CHAR Dextrose (D10) 250 mls @ 750 mls/hr IV Q15M PRN; Protocol PRN Reason: per Hypoglycemia Standing Ord. Insulin Human Lispro (Insulin Lispro 100 Unit/Ml 3 Ml Vial) 0 unit SUBCUT Q6H [facility]; Protocol Last Admin: 07/12/22 05:41 Dose: Not Given Documented By: JUSTIN Non-Admin Reason: No Insulin Coverage Comments: POC 95 Melatonin (Melatonin 3 Mg Tablet) 6 mg PO BEDTIME PRN PRN Reason: Insomnia Ondansetron HCl (Ondansetron Hcl 4 Mg/2 Ml Vial) 4 mg IVPUSH Q8H PRN PRN Reason: Nausea and Vomiting Pharmacy Consult (Consult Rx Perform Med Rec) 1 each MISCELLANE ONCE PRN PRN Reason: Consult order Sodium Chloride (0.9 % Sodium Chloride Flush 3 Ml Syringe) 3 ml IVFLUSH QSHIFT [facility] Last Admin: 07/12/22 09:34 Dose: 3 ml Documented By: CHAR Labs 07/12/22 05:11 07/12/22 05:11 Labs: Laboratory Results - last 24 hr 07/11/22 07/11/22 07/11/22 04:14 13:19 19:37 MCV MCH MCHC RDW Plt Count MPV Immature Gran % (Auto) Neut % (Auto) Lymph % (Auto) [place] % (Auto) Eos % (Auto) Baso % (Auto) Lymph # (Auto) [place] # (Auto) Eos # (Auto) Baso # (Auto) Abs Immat Gran (auto) Absolute Neuts (auto) Absolute Nucleated RBC Nucleated RBC % (auto) Anion Gap Estim Creat Clear Calc Estimated GFR POC Glucose 71 89 Random Glucose Calcium Urine Opiates Screen Cancelled Urine Fentanyl Screen Cancelled Ur Barbiturates Screen Cancelled Ur Phencyclidine Scrn Cancelled Ur Amphetamines Screen Cancelled U Benzodiazepines Scrn Cancelled Urine Cocaine Screen Cancelled U Marijuana (THC) Screen Cancelled 07/12/22 07/12/22 07/12/22 00:46 05:11 05:11 MCV 91.1 MCH 29.5 MCHC 32.4 RDW 14.3 Plt Count 292 D MPV 10.6 Immature Gran % (Auto) 0.3 Neut % (Auto) 53.0 Lymph % (Auto) 35.7 [place] % (Auto) 8.2 Eos % (Auto) 2.2 Baso % (Auto) 0.6 Lymph # (Auto) 3.5 [place] # (Auto) 0.8 Eos # (Auto) 0.2 Baso # (Auto) 0.1 Abs Immat Gran (auto) 0.03 Absolute Neuts (auto) 5.2 Absolute Nucleated RBC 0.000 Nucleated RBC % (auto) 0.0 Anion Gap 14 Estim Creat Clear Calc 84.2 Estimated GFR > 60 POC Glucose 92 Random Glucose 77 Calcium 8.8 Urine Opiates Screen Urine Fentanyl Screen Ur Barbiturates Screen Ur Phencyclidine Scrn Ur Amphetamines Screen U Benzodiazepines Scrn Urine Cocaine Screen U Marijuana (THC) Screen 07/12/22 05:39 MCV MCH MCHC RDW Plt Count MPV Immature Gran % (Auto) Neut % (Auto) Lymph % (Auto) [place] % (Auto) Eos % (Auto) Baso % (Auto) Lymph # (Auto) [place] # (Auto) Eos # (Auto) Baso # (Auto) Abs Immat Gran (auto) Absolute Neuts (auto) Absolute Nucleated RBC Nucleated RBC % (auto) Anion Gap Estim Creat Clear Calc Estimated GFR POC Glucose 95 Random Glucose Calcium Urine Opiates Screen Urine Fentanyl Screen Ur Barbiturates Screen Ur Phencyclidine Scrn Ur Amphetamines Screen U Benzodiazepines Scrn Urine Cocaine Screen U Marijuana (THC) Screen Microbiology Microbiology Results: Microbiology 07/11/22 02:57 Blood Culture - Preliminary Blood - Venous No growth after 24 hours. 07/11/22 02:57 Blood Culture - Preliminary Blood - Venous No growth after 24 hours. Assessment and Plan (1) Accidental overdose: Status: Acute (2) Acute hypoxemic respiratory failure: Status: Acute (3) Bipolar disorder, unspecified: Status: Chronic (4) Substance abuse: Status: Acute Plan This is a 27-year-old female with pertinent history of mood disorder, alcohol use disorder, substance use disorder was brought to the emergency department after she was found unresponsive. 1.Acute toxic encephalopathy in the setting of fentanyl OD - admits to smoking fentanyl. . . Effects have cleared - respiratory status stable - expresses insight into recovery. Wishes to enter a program. Addiction med icine to reassess 2.Hypothermia due to drug use disorder - resolved 3.Acute kidney injury - resolved 4.Mood disorder - resume meds as outpatient when clear Lovenox 40 mg daily Full code Requires ongoing hospitalization to facilitate safe discharge Time Spent With Patient Time: Total time managing care of this patient today ____ minutes. Quality Stroke Does the patient have a stroke diagnosis?: No VTE Prior VTE?: No VTE Risk Level:: Medical - moderate - high VTE Device Contraindication: Treatment Not Indicated VTE Drug Contraindication: N/A - Med Ordered
[2022-07-12 11:58] LABS: Glucose, Whole Blood 144 mg/dL (60-115)
--- NOTE | 2022-07-12 12:47 | MHC.CM.PN ---
pt is parul vax will be followed by addiction team for disposition planning
--- NOTE | 2022-07-12 14:01 | MHC.RECOVRN ---
Addendum entered by Shirlene Jauregui RN 07/12/22 14:10: This senior technical writer reviewed detox bedsearch process, reminded patient of unavailable female detox beds currently, did review that patient is being monitored for ETOH withdrawal and scoring low on CIWA. Patient verbalized understanding. Provider aware. Original Note: This senior technical writer met w/ patient after addiction consult was placed. Patient reports smoking crack/shanda daily, ETOH use daily. 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 Patient states has hx of overdose, overdosed in 2020 on fentanyl pressed pills that were a friends. Patient reports does not use opiates typicaly. 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 T/W and patient discussed narcan education, overdose prevention and harm reduction. Patient declined fentanyl test strips for stimulants. Patient encouraged to f/u w/ [facility] for safe smoking/safe snorting kits. Patient states has been through treatment in the past for ETOH use, patient reports in [id number] [facility] for detox. Patient reports in the past has been on Naltrexone and Vivitrol for ETOH. Patient reports good effect with Vivitrol injection. Patient reports interest in detox placement, t/w reviewed no female detox beds open at [facility]. This senior technical writer reviewed recovery resources and left at bedside. Patient was intermittently closing eyes during discussion, a few times had to repeat question.
[2022-07-12 15:32] VITALS: BP 132/70; PULSE 78; RESP 18; TEMP 36.8; O2SAT 98
[2022-07-12 17:21] LABS: Glucose, Whole Blood 131 mg/dL (60-115)
[2022-07-12 19:20] VITALS: BP 112/61; PULSE 85; RESP 18; TEMP 37; O2SAT 97
--- NOTE | 2022-07-12 23:56 | PC.NURSE ---
pt refused [address] Davies aware.
--- NOTE | 2022-07-13 03:26 | PC.NURSE ---
pt refused [address] Davies aware.
[2022-07-13 04:55] LABS: Glucose, Whole Blood 119 mg/dL (60-115)
[2022-07-13] MEDS: Thiamine HCL 100 MG in 0.9 % Sodium Chloride 100 ML 202 MG IV (08:36)
[2022-07-13] MEDS: 0.9 % Sodium Chloride Flush 3 ML SYRINGE IVFLUSH (08:42)
--- NOTE | 2022-07-13 09:29 | PM.DS ---
DS: Providers Provider Date of Service: 07/13/22 Date of admission: 07/11/22 05:03 Date of discharge: 07/13/22 Primary care physician: Royer Physician Consults: 07/11/22 05:03 Addiction Medicine Routine Consulting Provider: Dustin Gómez Reason for consultation: substance use disorder Consult to Care Team Routine Comment: Reason for consultation: substance use disorder DS: Diagnosis Discharge Diagnosis (1) Accidental overdose: Status: Acute (2) Acute hypoxemic respiratory failure: Status: Acute (3) Bipolar disorder, unspecified: Status: Chronic (4) Substance abuse: Status: Acute DS: Summary Hospital Course Hospital Course: his is a 27-year-old female with pertinent history of mood disorder, alcohol use disorder, substance use disorder was brought to the emergency department after she was found unresponsive.? It was suspected that patient and she was given 8 mg Narcan intranasally.? Unable to obtained any history from the patient or review of systems.? History provided by ER provider and chart review.? Patient only eye opening to verbal stimulus at the time of my evaluation.? In the emergency department, patient was placed on 3 L supplemental oxygen.? She was found to lactic acidosis and elevated creatinine Hospital Course Patient's O2 requirement resolved in the ER. She remains somnolent but easily arousable. She was admitted to the floor; seen by Addiction Medicine but did not want to engage the 1st day. They returned yesterday and she requested detox. After exhausting bed surge there was no female beds available so she was offered outpatient programs. This a.m., she is not interested in any programs and wishes to leave. She denies suicidal or homicidal ideation. She states she has the listed she will call when she is ready. Time Spent with Patient Time attestation: Total time managing care of this patient today ____ minutes. Discharge coordination time: Greater than 30 minutes Quality: Safe Use of Opioids Does Pt have an Active Cancer Diagnosis on the Problem List?: No Quality: Stroke Does the patient have a stroke diagnosis?: No Physical Exam Vital Signs: Vital Signs: Last Vital Signs Temp 98.6 F 07/12/22 19:20 Pulse 85 07/12/22 19:20 Resp 18 07/12/22 19:20 BP 112/61 07/12/22 19:20 Pulse Ox 97 07/12/22 19:20 O2 Del Method 07/12/22 19:20 O2 Flow Rate 3 07/11/22 09:21 BMI result Body Mass Index 28.0 Const: Other: awake alert cooperative Resp: Other: clear to auscultation bilaterally no rales rhonchi or wheezes Cardio: Other: no S4; positive S1-S2; no S3 murmurs rubs or gallops GI: Other: soft nontender nondistended normoactive bowel sounds Neuro: Other: cranial nerves 2-12 grossly intact as tested. Motor is 5/5 all extremities. Sensation is intact. Cognition appropriate Extrem: Other: no edema bilaterally DS: Data Data Completed and Pending Labs on day of discharge: Laboratory Results - last 24 hr 07/12/22 07/12/22 07/13/22 11:53 17:18 04:51 POC Glucose 144 H 131 H 119 H Preliminary micro results at discharge 07/11/22 02:57 Blood Culture - Preliminary Blood - Venous No growth after 48 hours. 07/11/22 02:57 Blood Culture - Preliminary Blood - Venous No growth after 48 hours. Discharge Plan Discharge Anticipated Discharge Date/Time: 07/13/22 09:27 Patient Disposition: Home, Self-Care Discharge Diagnosis: accidental overdose Referrals: Physician,Unknown J [Primary Care Provider] - 1 Week Discharge Medications: No Action No Known Home Meds Discharge Orders: Discharge Order (Routine); Ordered 07/13/22 Ordered By: Jake Anand Diet: Advance to usual diet Activity on Discharge: As tolerated Stand Alone Forms: Patient Portal Discharge page Care Plan Goals: follow-up with PCP in 2 weeks Health Concerns: you should avoid drugs or alcohol Plan of Treatment: Yo been offered inpatient outpatient programs. Strongly advised to you sign up for 1 Assessment: see discharge summary
== END 2022-07-13 09:40 | disposition home or self-care (01) | DRG 812 ==
LOC: HO.ED 01:44 → HO.EDOVER 05:15 → HO.S3 17:32
PROVIDERS: Admitting Provider Student in an Organized Health Care Education/Training Program; Emergency Provider Student in an Organized Health Care Education/Training Program; Visit Provider Hospitalist
DX: T40.411A Poisoning by fentanyl or fentanyl analogs, accidental (unintentional), initial encounter (principal); N17.8 Other acute kidney failure; F31.9 Bipolar disorder, unspecified; R68.0 Hypothermia, not associated with low environmental temperature; J45.909 Unspecified asthma, uncomplicated; N14.19 Nephropathy induced by other drugs, medicaments and biological substances; R73.9 Hyperglycemia, unspecified; F10.10 Alcohol abuse, uncomplicated; F11.10 Opioid abuse, uncomplicated; Z59.02 Unsheltered homelessness; Y90.3 Blood alcohol level of 60-79 mg/100 ml; F17.210 Nicotine dependence, cigarettes, uncomplicated; Z20.822 Contact with and (suspected) exposure to COVID-19
CPT/HCPCS: 36415; 71045; 80048; 80053; 80307; 81001; 82077; 82550; 82803; 82947; 83036; 83605; 83735; 84484; 85025; 85610; 87040; 87502; 87635; 93005; 99285; J1650; J2405; J3411

== ENCOUNTER 2025-04-04 04:33 | Emergency (ER) | payer OTHER, SELFPAY ==
--- NOTE | 2025-04-04 05:04 | ED.PSYCH ---
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 On arrival she is already finding with the female staff in stating that they are aggressive. I asked her if she was suicidal and she shakes her head yes. she laughs when I ask if she is having any hallucinations. She states she is not taking any medications and does not have stable housing. She is asking for some respite. MD complaint: feels depressed, substance abuse and other Onset (ago): week(s) Duration: intermittent History of same: Yes Relieving factors: none Exacerbating factors: drug use Context: recent drug abuse, not taking psychiatric medications and significant life stressor Associated psychiatric symptoms: depression Associated symptoms: denies other symptoms Treatments prior to arrival: none If self harm: admits thoughts of self harm Related Data Home Medications ?Medication ?Instructions ?Recorded ?Confirmed No Known Home Meds 07/11/22 07/11/22 Allergies Allergy/AdvReac Type Severity Reaction Status Date / Time bee pollen (BEE STINGS) Allergy Unknown swelling Verified 04/04/25 05:24 ibuprofen (From MOTRIN) Allergy Unknown FACIAL Verified 04/04/25 05:24 SWELLING Review of Systems Review of Systems: ROS unable to be obtained due to agitation PMFSH Past Medical History Attestation statement: The following information was validated with the patient. Source: old records reviewed Medical History Malingering Antisocial behavior Bipolar disorder, unspecified Substance abuse Depression Asthma Social History Social History Household Members: None Housing: Homeless Do you presently have visiting nurse or other home services: No Unable to assess alcohol history related to: Refusing to respond Alcohol intake: current Alcohol intake frequency: 0-2 drinks per day Alcohol type: hard liquor Patient Tobacco Use Status: Current everyday Tobacco user Tobacco use type: Cigarette Cigarette Packs Per Day: 0.5 Cigarettes Per Day: 10.0 e-Cigarette/Vaping Use: Never Used Second Hand Smoke Exposure: No Use of substances other than those prescribed or required for medical reasons: Refusing to respond Substance Use Type: Crack/Cocaine, Heroin, IV Drugs, Marijuana and Opiates Advance Directives: No Advance Directives Information Provided: No Do you have a plan to hurt others: No Plan service: No Sexual orientation: Did not discuss Physical Exam Vital Signs: Vital Signs: Last Vital Signs Temp 97.1 F 04/05/25 08:09 Pulse 68 04/05/25 08:09 Resp 16 04/05/25 08:09 BP 115/80 04/05/25 08:09 Pulse Ox 100 04/05/25 08:09 O2 Del Method Room Air 04/05/25 08:09 BMI result Body Mass Index 35.6 Appearance: Alert. Oriented X3. disheveled, unkempt, hyperverbal, aggressive mild acute distress. Eyes: Pupils equal, round and reactive to light. ENT: Pharynx normal. atraumatic Neck: Normal inspection. Neck supple. CVS: Pulses normal. Respiratory: No respiratory distress. Abdomen: Soft and nontender. Skin: Skin warm and dry. Normal skin color. Extremities: No lower extremity edema. Neuro: Oriented X 3. No motor deficit. No sensory deficit. Course Course Course Narrative: 5:05 AM 04/04/2025 ([facility] [place]T): patient is threatening staff and trying to elope from the pod at this time she agrees to take p.o. medications though her posturing makes me think that she is unlikely to take it. She also recanted SI and and about 10 seconds later stated that it made that up in front of everyone and that she still has SI Reevaluation(s) Reevaluation #1: Time: 06:07 Date: 04/05/25 Provider: Elliott Powell MD Patient in physician observation for psychiatric evaluation.? No acute events reported overnight. No current complaints. VS stable.? Patient is in bed search status/pending CARE team evaluation. Will continue to monitor. Reevaluation #2: 04/05/2025 09:35 (Dr. Powell) patient was cleared by care team, she does not want to go to detox at this point she will be discharged home no SI no HI at this point. I personally re-examined the patient no SI no HI. We will discharge the patient home this will end the ED observation status Time: 09:37 Medications Administered Discontinued Medications Generic Name Dose Route Start Last Admin Trade Name Carlie PRN Reason Stop Dose Admin Diazepam 5 mg 04/04/25 04:59 04/04/25 06:08 Diazepam 10 Mg/2 Ml Cartridge IM 04/04/25 05:00 Not Given STAT STA Diazepam 5 mg 04/04/25 05:13 04/04/25 05:15 Diazepam 5 Mg Tablet PO 04/04/25 05:14 5 mg ONCE ONE Administration Olanzapine 10 mg 04/04/25 04:59 04/04/25 06:08 Olanzapine 10 Mg Vial IM 04/04/25 05:00 Not Given STAT STA Olanzapine 10 mg 04/04/25 05:13 04/04/25 05:15 Olanzapine Odt 10 Mg Tab.Rapdis TRANSLINGU 04/04/25 05:14 10 mg ONCE ONE Administration Medical Decision Making Medical Decision Making MDM Narrative: 30-year-old female with past medical history of antisocial personality disorder, malingering, substance abuse, asthma, features of bipolar disorder who presents aggressive, hyperverbal, difficult to follow, she denies any medical concerns she is very vague reports some SI, then HI then laughs when I ask her about auditory hallucinations. At this time I am going to attempt to give her oral medications given her escalating behaviors, if she does not respond then she will receive IM medications as she has made threats to the staff since arrival. She will get labs and care team consult Differential Diagnosis Differential Diagnoses: The differential diagnosis associated with the presentation includes substance abuse, malingering, homelessness, depression Admission/Observation Consideration of admission/observation: Escalation of care including admission/observation considered physician observation started at 05:18 Consult Healthcare Provider Management of the patient was discussed with: Behavioral Health Provider Lab Data [facility] Lab Attestation statement: I reviewed the patient's lab results. 04/04/25 11:02 04/04/25 11:02 Labs: Lab Results 04/04/25 04/04/25 Range/Units 05:45 11:02 WBC 13.8 H (4.8-10.8) X10*3/uL RBC 4.08 L (4.20-5.50) X10*6/uL Hgb 11.8 L (12.0-16.0) g/dl Hct 35.9 L (37.0-47.0) % MCV 88.0 (80.0-98.0) fL MCH 28.9 (27.0-33.0) pg MCHC 32.9 (31.0-35.0) g/dl RDW 15.2 (11.0-16.0) % Plt Count 354 (160-400) X10*3/uL MPV 9.6 (9.4-12.3) fL Immature Gran % (Auto) 0.4 (0.0-0.4) % Neut % (Auto) 66.5 (45-73) % Lymph % (Auto) 24.0 (20-40) % Dawson % (Auto) 6.9 (2-11) % Eos % (Auto) 1.7 (0-4) % Baso % (Auto) 0.5 (0-2) % Lymph # (Auto) 3.3 (1.2-4.9) X10*3/uL Dawson # (Auto) 1.0 (0.1-1.2) X10*3/uL Eos # (Auto) 0.2 (0.0-0.4) X10*3/uL Baso # (Auto) 0.1 (0.0-0.2) X10*3/uL Abs Immat Gran (auto) 0.05 H (0.00-0.03) X10*3/uL Absolute Neuts (auto) 9.2 H (2.0-8.3) x10*3/uL Absolute Nucleated RBC 0.000 (0.0-0.012) X10*3/uL Nucleated RBC % (auto) 0.0 (0.0-0.2) /100WBC Sodium 140 (135-145) mmol/L Potassium 4.0 (3.3-5.1) mmol/L Chloride 111 H (96-108) mmol/L Carbon Dioxide 24 (22-29) mmol/L Anion Gap 9 L (12-20) BUN 14 (9-16) mg/dL Creatinine 0.93 (0.5-1.4) mg/dL Estim Creat Clear Calc 93.1 Estimated GFR > 60 Random Glucose 95 (60-115) mg/dL Calcium 8.6 (8.4-10.2) mg/dL Magnesium 2.2 (1.6-2.6) mg/dL Total Bilirubin 0.6 (0.0-1.0) mg/dL Direct Bilirubin 0.2 (0.0-0.5) mg/dL AST 28 (5-31) U/L ALT 17 (0-31) U/L Alkaline Phosphatase 91 (39-117) U/L Total Protein 6.5 (6.5-8.0) g/dL Albumin 3.9 (3.5-5.0) g/dL Beta HCG, Quant < 2 mIU/mL Urine Color Yellow Urine Appearance Cloudy Urine pH 5.5 (5.0-9.0) Ur Specific [place] 1.015 (1.005-1.025) Urine Protein Negative (Neg-Trace) mg/dL Urine Glucose (UA) Negative (Negative) mg/dL Urine Ketones Negative (Negative) mg/dL Urine Blood Moderate (2+) H (Negative) Urine Nitrite Negative (Negative) Ur Leukocyte Esterase Small (1+) H (Negative) Urine RBC 0-2 (0-2) /HPF Urine WBC 0-5 (0-5) /HPF Ur Squamous Epith Cells 6-10 (0-2) /HPF Urine Bacteria 2+ (None Seen) Hyaline Casts 0-2 (0-2) /LPF Urine Test NEGATIVE (NEGATIVE) Urine Opiates Screen Not Detected (Not Detect) Ur Buprenorphine Scrn Not Detected (Not Detect) ng/mL Ur Oxycodone Screen Not Detected (Not Detect) ng/mL Urine Methadone Screen Not Detected (Not Detect) ng/mL Urine Fentanyl Screen POSITIVE H (Not Detect) Ur Barbiturates Screen Not Detected (Not Detect) Ur Phencyclidine Scrn Not Detected (Not Detect) Ur Amphetamines Screen Not Detected (Not Detect) U Benzodiazepines Scrn Not Detected (Not Detect) Urine Cocaine Screen POSITIVE H (Not Detect) U Marijuana (THC) Screen Not Detected (Not Detect) Ethyl Alcohol < 10 mg/dL External Record Review External record reviewed: Inpatient record and Outpatient record Social Determinants Patient?s care significantly limited by Social Determinants of Health including: Inadequate housing, Low income, Problems related to primary support group and Unemployment Discharge Plan Discharge Clinical Impression: Cocaine use disorder, Opioid use disorder Additional Instructions: You were seen in our Emergency Department today for treatment of a behavioral health issue. It is important after your visit that you follow up with either your behavioral health provider or a primary care doctor within 7 days.? If you have trouble finding a therapist you can reach out to [address] [phone] The National Suicide and Crisis Lifeline can be reached 7 days a week 24 hours a day.? Call 988 to speak with someone.? Return for any worsening symptoms or concerns such as thoughts of self harm or harm to others. Please call 911 if you feel your mental health is worsening.? Prescriptions: No Action No Known Home Meds Interventions: [place]-Suicide Risk Severity Scale Last Done: 04/04/25 11:00 Print Language: Malaysian
[2025-04-04] MEDS: OLANZapine ODT 10 MG TAB.RAPDIS TRANSLINGU (05:15)
--- NOTE | 2025-04-04 05:15 | MHC.EDTECH ---
PATIENT OUT OF ROOM TOWARDS ENTRANCE OF BH POD DOOR AWAITING THE ARRIVAL OF STAFF WHO WENT OUT TO TALK TO THE DR DAVENPORT REGARDING MEDICATION. PATIENT ROCKING AGGRESSIVELY IN ROCKING CHAIR, LAUGHING AT HERSELF, MAKING GESTURES AND COMMENTS IN REGARDS TO SECURITY STAFF, PATIENT THEN SITTING ON TABLE . SECURITY OVER TO TALK TO PATIENT TO TRY TO DISTRACT PATIENT IN WHICH DID HELP FOR A FEW MINUTES. PATIENT BEGAN TO WALK AWAY TOWARDS NURSES STATION DOOR IN WHICH INAPPROPRIATE GESTURES WERE MADE, INTIMIDATING FACIAL STARE DOWN, POSTURING BODY LANGUAGE, AND THREATS OF WANTING TO FIGHT. NURSES AT THE TIME ENTERED THE POD WITH DR DAVENPORT TO TALK TO PATIENT REGARDING MEDICATION AND PLAN TO FOLLOW
[2025-04-04 05:23] VITALS: BMI 35.6
--- NOTE | 2025-04-04 05:35 | PC.NURSE ---
Patient arrived to the POD. Speech is hyperverbal and pacing around the unit. Patient does not like FEMALE staff. Refused VS. Refused bloodwork. During exchange clerk, patient refused to give bra to staff. While being wanded, patient began to posture and swipe at Security staff. After multiple attempts, provided bra to staff. Refused PO Ativan when offered. MD Zamarripa made aware, plan to IM. MD Zamarripa on unit, spoke to patient and she was agreeable to accepting PO medication. Endorsed vague +SI, but recanted this later. Denied HI. Accepted PO Zyprexa and Valium, pending effectiveness. Continues to be vulgar and verbally aggressive towards staff, but remaining in room. Provided UA sample. Given liquids/snacks. Unable to complete full patient assessment d/t current state. 15 minute safety checks in place. Will continue to monitor for safety. Plan for medical clearance and CARE TEAM Eval.
[2025-04-04 05:53] LABS: Appearance Urine Cloudy; Glucose Urine UA Negative (Negative); PH 5.5 (5.0-9.0); Specific Gravity - Urine 1.015 (1.005-1.025); UMIC TRIGGER UACC YES
[2025-04-04 05:57] LABS: UPreg QC Valid YES
[2025-04-04 06:02] LABS: Cannabinoid Screen Urine Not Detected (Not Detect)
[2025-04-04 06:16] LABS: UACC Culture Trigger YES
--- NOTE | 2025-04-04 06:44 | MHC.CARE ---
Consult with nursing who reports patient has been agitated and aggressive towards staff. She is currently asleep after being medicated orally. CARE Team will not awake patient for assessment, she will be assessed later in the morning. Patient continues to refuse labs and does not have a BAL.
[2025-04-04 10:58] VITALS: BP 110/60; PULSE 96; RESP 18; TEMP 36.4; O2SAT 97
--- NOTE | 2025-04-04 11:01 | PC.NURSE ---
Pt wakes, she is calm and cooperative. she is given her breakfast and coffee. VS and blood work is obtained. Care team and Registration is made aware.
[2025-04-04 11:12] LABS: MANUAL DIFF FLAG NO
[2025-04-04 11:17] LABS: Hematocrit 35.9 % (37.0-47.0); Hemoglobin 11.8 g/dl (12.0-16.0); Imm Gran Abs Auto 0.05 X10*3/uL (0.00-0.03); Imm Gran Pct Auto 0.4 % (0.0-0.4); Lymphocytes Absolute Auto 3.3 X10*3/uL (1.2-4.9); Mean Corpuscular HGB Conc 32.9 g/dl (31.0-35.0); Mean Corpuscular Hemoglobin 28.9 pg (27.0-33.0); Mean Corpuscular Volume 88.0 fL (80.0-98.0); NRBC Abs Auto 0.000 X10*3/uL (0.0-0.012); NRBC Pct Auto 0.0 /100WBC (0.0-0.2); Platelet Count 354 X10*3/uL (160-400); Red Blood Count 4.08 X10*6/uL (4.20-5.50); White Blood Count 13.8 X10*3/uL (4.8-10.8)
[2025-04-04 11:35] LABS: Alanine Aminotransferase 17 U/L (0-31); Albumin Level 3.9 g/dL (3.5-5.0); Alkaline Phosphatase 91 U/L (39-117); Anion Gap 9 (12-20); Aspartate Amino Transferase 28 U/L (5-31); Blood Urea Nitrogen 14 mg/dL (9-16); Calcium 8.6 mg/dL (8.4-10.2); Carbon Dioxide 24 mmol/L (22-29); Chloride 111 mmol/L (96-108); Creatinine Clr Calc Pharmacy 93.1; Estimated Glomerular Filt Rate > 60; Magnesium 2.2 mg/dL (1.6-2.6); Potassium 4.0 mmol/L (3.3-5.1); Sodium 140 mmol/L (135-145); Total Protein 6.5 g/dL (6.5-8.0)
--- OUTSIDE RECORDS SUMMARY | 2025-04-04 11:48 | XMS_ITS | Encounter Summary ---
Author Organization [facility] Address [address] [facility] [address] [place] [phone] Phone Care Team Providers Care Anode Machine Operator Name Role Phone Pritesh Gaffney MD Primary Care Provide r Encounter Details Date Type Department Care Team (Late st Contact Info) Description 03/01/2023 Procedure Pass [facility], Ct Scan - [facility] [address] [place] [address] Social History Tobacco Use Types Packs/Day Years Used Date Smoking Tobacco: Every Day Cigarettes Smokeless Tobacco: Never Alcohol Use Standard Drinks/Week Comments Yes 0 (1 standard drink = 0.6 oz pur e alcohol) daily Education Answer Date Recorded Are you interested in more education? Not on candice e 09/02/2022 Are you concerned about learning? Not on file 09/02/2022 No 09/02/2022 No 09/02/2022 Digital Access Answer Date Recorded No 10/01/2022 No 10/01/2022 Reliable internet access at home? Not on file 10/01/2022 Device with a working camera? Not on file Comments No Sex and Gender Information Value Date Recorded Sex Assigned at Female 06/22/2023 10:09 AM EST Legal Sex Female 3:43 AM EST Gender Identity Female 06/22/2023 10:09 AM EST Sexual Orientation Choose not to disclose 2017 9:12 PM EST documented as of this encounter Functional Status * Calculated C-SSRS Risk Score (Lifetime/Recent) Answer Date of Assessment Author No Risk Indicated 03/02/2023 4:26 PM EDT Hui Sinclair, RN * [place] Suicide Severity Rating Scale (Screener/Recent Self-Report) Question Answer Date of Assessment Author 1. Wish to be (Past 1 Month) No 023 4:26 PM EDT Hui Sinclair RN 2. Non-Specific Active Suici venessa Thoughts (Past 1 Month) No 03/02/2023 4:26 PM EDT Allie Sinclair RN 6. Suicidal Behavior (Lifetime) No 4:26 PM EDT Hui Sinclair RN documented as of this encounter Plan of Treatment Not on file documented as of this encounter Visit Diagnoses Not on filedocumented in this encounter Additional Health Concerns Infection Onset Date Last Indicated Resolved Time CoV-Risk 02/18/2023 02/18/2023 03/01/2023 1:21 AM EDT CoV-Risk 03/02/2023 03/02/2023 03/13/2023 1:22 AM EST CoV-Exposed Comment:Removed via automated background process based on negative test result 06/18/2023 06/18/2023 06/23/2023 6:[address] documented as of this encounter Care Teams Anode Machine Operator Relationship Specialty Start Date End Date Pritesh Gaffney MD [address] [place] [address] [address] [place] [id number] [email or web address] PCP - General Internal Medicine 07/04/17 documented as of this encounter Additional Source Comments The information contained in this document represents components of the legal health record. It is not the complete legal health record.[facility]
--- OUTSIDE RECORDS SUMMARY | 2025-04-04 11:48 | XMS_ITS | Encounter Summary ---
Author Organization [facility] Address [address] [place] [address] [place] [phone] Phone Care Team Providers Care Turn Down Attendant Name Role Phone Pritesh Gaffney MD Primary Care Provide r Encounter Details Date Type Department Care Team (Late st Contact Info) Description 05/20/2020 Procedure Pass [facility], Ct Scan - [facility] [address] [place] [address] Social History Tobacco Use Types Packs/Day Years Used Date Smoking Tobacco: Every Day Cigarettes Smokeless Tobacco: Never Alcohol Use Standard Drinks/Week Comments Yes 0 (1 standard drink = 0.6 oz pur e alcohol) daily Comments No Sex and Gender Information Value Date Recorded Sex Assigned at Female 06/22/2023 10:09 AM EST Legal Sex Female 3:43 AM EST Gender Identity Female 06/22/2023 10:09 AM EST Sexual Orientation Choose not to disclose 2017 9:12 PM EST documented as of this encounter Functional Status * Calculated C-SSRS Risk Score (Lifetime/Recent) Answer Date of Assessment Author No Risk Indicated 05/21/2020 11:50 AM EST Jessica Cai RN * [place] Suicide Severity Rating Scale (Screener/Recent Self-Report) Question Answer Date of Assessment Author 1. Wish to be (Past 1 Month) No 05/21/2020 11:50 AM EST Jessica Cuevas RN 2. Non-Specific Active Suicidal Thoughts (Past 1 Month) No 05/21/2020 11:50 AM EST Jessica Cuevas RN 6. Suicidal Behavior (Lifetime) No 05/21/2020 11:50 AM Jessica Phillips RN documented as of this encounter Plan of Treatment Not on file documented as of this encounter Visit Diagnoses Not on filedocumented in this encounter Additional Health Concerns Infection Onset Date Last Indicated Resolved Time CoV-Risk 05/21/2020 05/21/2020 05/31/2020 1:25 AM EST CoV-Risk 02/18/2023 02/18/2023 03/01/2023 1:21 AM EDT CoV-Risk 03/02/2023 03/02/2023 03/13/2023 1:22 AM EST CoV-Exposed Comment:Removed via automated background process based on negative test result 06/18/2023 06/18/2023 06/23/2023 6:[address] documented as of this encounter Care Teams Turn Down Attendant Relationship Specialty Start Date End Date Pritesh Gaffney MD [address] [place] [address] [place] [phone] [email or web address] PCP - General Internal Medicine 07/04/17 documented as of this encounter Additional Source Comments The information contained in this document represents components of the legal health record. It is not the complete legal health record.[facility]
--- OUTSIDE RECORDS SUMMARY | 2025-04-04 11:48 | XMS_ITS | Clinical Summary ---
Author Organization [facility] Address [address] [place] [address] Phone Care Team Providers Care Jewelry Coater Name Role Phone Pritesh Gaffney MD Primary Care Provide r Allergies Active Allergy Reactions Criticality Noted Date Comments Egg 01/01/2023 Ibuprofen 07/04/2017 Medications * This document contains information received from the source organization and may not represent a complete record from that organization. albuterol 90 mcg/actuation inhaler Inhale 2 puffs into the lungs every 4 (four) hours as needed for wheezing. 1 Inhaler 1 Active Additional Information Patient not taking.Reported on 01/01/2023 nicotine polacrilex (NICORETTE) [address] 1 each (2 mg total) inside cheek every 2 (two) hours as needed for smoking cessation. 220 each 1 4 Active hydrOXYzine (ATARAX) 50 MG tablet Take 1 tablet (50 mg total) by mouth 3 (three) times a day as needed for anxiety. 90 tablet 1 4 Active OLANZapine (ZYPREXA) 5 MG tablet Take 1 tablet (5 mg total) by mouth 2 (two) times a day. 60 tablet 1 4 Active Active Problems Problem Noted Date Diagnosed Date Bipolar disorder, manic 01/04/2023 Alcohol use disorder 01/02/2023 Resolved Problems Problem Noted Date Diagnosed Date Resolved Date Verbalizes suicidal thoughts 01/01/2023 01/04/2023 Social History Tobacco Use Types Packs/Day Years Used Date Smoking Tobacco: Every Day Cigarettes Smokeless Tobacco: Never Tobacco Cessation:Ready to Q uit: Not Asked; Counseling Given: Yes Alcohol Use Standard Drinks/Week Comments Yes 0 [...] with a working camera? Not on file Intimate Partner Violence Answer Date R ecorded Are you denied basic needs s uch as food, clothing, or medical care? No 06/16/2023 In the past 12 months have y ou been in a relationship with a person who hurts, threatens, or tries to control you? No 06/16/2023 Are you denied basic needs s uch as food, clothing, or medical care? No 06/16/2023 In the past 12 months have y ou been in a relationship with a person who hurts, threatens, or tries to control you? No 06/16/2023 Comments No Sex and Gender Information Value Date Recorded Sex Assigned at Female 06/22/2023 10:09 AM EST Legal Sex Female 3:43 AM EST Gender Identity Female 06/22/2023 10:09 AM EST Sexual Orientation Choose not to disclose 2017 9:12 PM EST Last Filed Vital Signs Vital Sign Reading Time Taken Comments Blood Pressure 117/72 06/27/2023 3:00 PM EST Pulse 65 06/27/2023 3:00 PM EST Temperature 36.7 C (98 F) 06/27/2023 3:00 PM EST Respiratory Rate 18 06/27/2023 5:13 PM EST Oxygen Saturation 100% 06/27/2023 3:00 PM EST Inhaled Oxygen Concentration - - Weight 69.4 kg (153 lb 1.6 oz) 06/18/2023 3:48 P M EST Height 157.5 cm (5' 2 ) 06/18/2023 3:48 PM EST Body Mass Index 28 06/18/2023 3:48 PM EST Plan of Treatment Health Maintenance Due Date Last Done Comments DEPRESSION SCREENING 2005 SMOKING Hx and SMOKELESS TOB ACCO SCREENING 2006 HEPATITIS C SCREENING 2011 HIV ONE-TIME SCREENING (18-6 5 YEARS) 2011 PNEUMOCOCCAL VACCINES (0-49 years) (1 of 2 - PCV) 02/26/2012 PAP SMEAR 2014 INFLUENZA VACCINE (#1) 2024 COVID-19 VACCINE (1 - 2024-2 6 season) 2025 Adult Td,Tdap Booster 06/17/2029 06/17/2019 HEPATITIS A VACCINES Aged Out No long er eligible based on patient's age to complete this topic HIB VACCINES Aged Out No longer eligi ble based on patient's age to complete this topic MENINGOCOCCAL VACCINES (ACWY) Aged Out No longer eligible based on patient's age to complete this topic MENINGOCOCCAL VACCINES (B) Aged Out N o longer eligible based on patient's age to complete this topic Medical Devices Not on file Insurance [address] [place] [address] [employer] [address] [address] [place] [address] [employer] [address] [address] [place] [address] [facility]HER [facility] Advance Directives For more information, please contact: [phone] (9AM - 5PM [facility], Monday-Monday) * Full Code (Latest Code Status on File) Date Activated Date Inactivated Comments 06/18/2023 3:32 PM Question Answer Comments Code Status Confirmed With: Patient * Full Code Date Activated Date Inactivated Comments 01/04/2023 12:12 PM 06/18/2023 3:32 PM Question Answer Comments Code Status Confirmed With: Patient Care Teams Jewelry Coater Relationship Specialty Start Date End Date Pritesh Gaffney MD [address] [place] [address] [address] [place] [phone] [email or web address] PCP - General Internal Medicine 07/04/17 Additional Source Comments The information contained in this document represents components of the legal health record. It is not the complete legal health record.[facility]
--- OUTSIDE RECORDS SUMMARY | 2025-04-04 11:48 | XMS_ITS | Encounter Summary ---
Author Organization [facility] Address [address] [place] [address] Phone Care Team Providers Care Contract Attorney Name Role Phone Pritesh Gaffney MD Primary Care Provide r Encounter Details Date Type Department Care Team (Late st Contact Info) Description 03/01/2023 Procedure Pass [facility], Ct Scan - [facility] [address] [place] [address] Social History Tobacco Use Types Packs/Day Years [...] 4:26 PM EDT Hui Sinclair, RN * [place] Suicide Severity Rating Scale (Screener/Recent Self-Report) Question [...] documented as of this encounter Care Teams Contract Attorney Relationship Specialty Start Date End Date Pritesh Gaffney MD [address] [place] [address] [address] [place] [id number] [email or web address] PCP - General Internal Medicine 07/04/17 documented as of this encounter Additional Source Comments The information contained in this document represents components of the legal health record. It is not the complete legal health record.[facility]
--- NOTE | 2025-04-04 12:39 | MHC.CARE ---
patient seen by CARE team. Denies current SI and HI, indicates use of crack cocaine, etoh (1 pint liquor and 3 beers QD) and also fentanyl she reports she purchased on the street. Requested detox. Possibly still somewhat impaired at time of assessment, or substances when combined with medication given when she was agitated. At this time, no beds at [facility]. Faxed to [facility] as [facility] at [facility] reports that they may have a female bed tomorrow F: [phone] P: .[phone]
--- NOTE | 2025-04-04 15:55 | MHC.CARE ---
patient is fine with going as far as [facility] for [facility]. She does present as pleasantly bizarre, no acute bx concerns however.
[2025-04-04 19:52] VITALS: BP 128/84; PULSE 90; RESP 16; TEMP 36.5; O2SAT 98
--- NOTE | 2025-04-04 23:29 | PC.NURSE ---
Took over care from 23:00, pt sleeping at this time.
--- NOTE | 2025-04-05 03:06 | PC.NURSE ---
pt given sandwich and crackers at this time.
--- NOTE | 2025-04-05 06:05 | PC.NURSE ---
pt refusing vitals.
[2025-04-05 06:06] VITALS: RESP 16
--- NOTE | 2025-04-05 06:17 | PC.NURSE ---
pt oob to bathroom.
[2025-04-05 08:09] VITALS: BP 115/80; PULSE 68; RESP 16; TEMP 36.2; O2SAT 100
--- NOTE | 2025-04-05 08:17 | PC.NURSE ---
report obtained from jenny at 7am, pt currently sleeping, rr equal/non labored, plan of care ongoing
[2025-04-05 09:57] VITALS: BP 118/80; PULSE 71; RESP 16; TEMP 36.1; O2SAT 100
== END 2025-04-05 09:58 | disposition home or self-care (01) ==
PROVIDERS: Emergency Provider Emergency Medicine; PCP Internal Medicine
DX: F33.1 Major depressive disorder, recurrent, moderate (principal); F14.90 Cocaine use, unspecified, uncomplicated; F11.90 Opioid use, unspecified, uncomplicated; F12.90 Cannabis use, unspecified, uncomplicated; F43.9 Reaction to severe stress, unspecified; Z51.81 Encounter for therapeutic drug level monitoring; Z79.899 Other long term (current) drug therapy
CPT/HCPCS: 36415; 80048; 80076; 80307; 81001; 81025; 83735; 84702; 85025; 87086; 99285; S9485